=== PATIENT | female | born 1945 | race Caucasian/White ===

== ENCOUNTER 2016-07-29 10:03 | Inpatient (IN) | payer MEDICARE, OTHER ==
[2016-07-29] VITALS (16 sets, daily range): BP systolic 111–175; BP diastolic 58–81; PULSE 68–140; RESP 20–27; O2SAT 86–100
[~2016-07-29] VITALS: Ht 166.4 cm; Wt 82.7 kg
--- NOTE | 2016-07-29 10:44 | ED.REPORT ---
HPI-Dyspnea / Wheezing Date of Service Jul 29, 2016 ED Provider: Hakeem Balbuena MD 70 year old female with a history of DM, and polymyositis presents to the ER complaining of several days of acute on chronic shortness of breath, worsening markedly today. Associated symptoms include bilateral lower extremity swelling, occasional transient episodes of chest discomfort, a "rattling" sound with inspiration, and diaphoresis last night. Patient denies fever, productive cough , hemoptysis, and recent immobilization. Patient was seen by Dr. Johnson, Cardiology, who referred patient to the ER due to fluid collection indicated on her chest x-ray. Nursing Notes Stated Complaint: SHORTNESS OF BREATH Chief Complaint: Respiratory Distress Nursing Notes Reviewed: Yes Allergies: Coded Allergies: Penicillins (Verified Allergy, Unknown, hives, angioedema, 07/29/16) TAPE (Verified Allergy, Unknown, 07/29/16) Scheduled Folic Acid (Folic Acid) 1 Mg Tablet 1 MG PO DAILY Levothyroxine (Levothyroxine) 75 Mcg Tablet 75 MCG PO DAILY Losartan Potassium (Losartan Potassium) 50 Mg Tablet 50 MG PO DAILY Metoprolol Succinate ER (Metoprolol Succinate ER) 50 Mg Tab.er.24h 50 MG PO TID NPH, Human Insulin Isophane (HUMulin-N U100 Insulin Vial) 100 Unit/1 Ml Vial 30 UNITS SQ MORNING NPH, Human Insulin Isophane (HUMulin-N U100 Insulin Vial) 100 Unit/1 Ml Vial 10 UNIT SUBQ HS Omeprazole (Omeprazole) 20 Mg Capsule.dr 20 MG PO Every Other Day Warfarin Sodium (Warfarin Sodium) 2.5 Mg Tablet 2.5 MG PO DAILY General Time Seen by MD: 10:30 Chief Complaint Shortness of breath Hx Obtained From: Patient Arrived By: Walk-in Sudden in Onset?: No Associated with: Reports: Leg swelling, Denies: Fever Past Medical History Past Medical History Denies history of DVT Polymyositis Reports: Diabetes mellitus, Hypertension Smoking History Unknown if Ever Smoker Review of Systems Constitutional: Denies: Chills, Fever Respiratory: Reports: Shortness of breath, Denies: Hemoptysis, Non-productive cough, Prod cough, bloody, Prod cough, brown, Prod cough, clear, Prod cough, green, Prod cough, white, Prod cough, yellow Cardiovascular: Denies: Chest pain, Palpitations Musculoskeletal: Reports: Extremity swelling (Lower, bilateral) Skin: Reports Diaphoresis Complete sys rev & neg: except as marked. GI: Denies: Abdominal pain, Nausea Physical Exam Initial Vital Signs Vital Signs (First) Date Time Temp Pulse Resp B/P Pulse Ox O2 Delivery O2 Flow Rate FiO2 07/29/16 10:12 36.4 68 22 147/81 91 Room Air 07/29/16 10:50 3 Initial VS: Reviewed Head / Eyes: Atraumatic, Normocephalic Extremities: Vascular intact, Neuro intact, No tenderness Neurologic: Alert, Oriented, Nonfocal Psychiatric: Mood/affect normal, Behavior normal, Normal thought content General/Constitutional: Awake, Alert, No acute distress, Well developed, Well nourished Neck: Atraumatic, Supple, No meningismus, Full range of motion, No swelling, Non-tender, No masses Respiratory / Chest: Breath sounds NL, Breath sounds = bilat, No respiratory distress, No rales, No rhonchi, No wheezing, No retractions, No stridor Cardiovascular: Heart rate NL, Regular rhythm, Heart sounds NL, No murmurs, Peripheral circulation NL Trace bilateral lower extremity edema. Abdomen: Soft, Non-tender, No guarding, No rebound Interpretation & Diagnostics Lab Results Interpretation Result Diagram: 07/29/16 1040 07/29/16 1040 Test 07/29/16 10:40 07/29/16 12:50 White Blood Count 6.7th/mm3 (3.8-10.1) Red Blood Count 5.18mil/mm3 (3.90-5.20) Hemoglobin 13.7g/dL (12.0-15.6) Hematocrit 43.1% (35.0-46.0) Mean Corpuscular Volume 83.2fL (81-100) Mean Corpuscular Hemoglobin 26.4pg (27.0-35.0) Mean Corpuscular Hemoglobin Concent 31.8% (32.0-37.0) Red Cell Distribution Width 16.7% (12.3-15.4) Platelet Count 247bil/L (150-400) Neutrophils (%) (Auto) 79.1% (40-74) Lymphocytes (%) (Auto) 12.2% (14-46) Monocytes (%) (Auto) 6.5% (4-12) Eosinophils (%) (Auto) 1.4% (0-5) Basophils (%) (Auto) 0.6% (0-3) Prothrombin Time 67.6sec (8.1-12.5) Prothromb Time International Ratio 6.09ratio Sodium Level 141mEq/L (134-144) Potassium Level 4.3mEq/L (3.5-5.2) Chloride Level 103mEq/L (97-108) Carbon Dioxide Level 24mmol/L (18-29) Blood Urea Nitrogen 22mg/dL (8-27) Creatinine 0.71mg/dL (0.57-1.00) Estimat Glomerular Filtration Rate 116mL/min (>59) Glucose Level 105mg/dL (60-99) Calcium Level 8.9mg/dL (8.5-10.1) Total Bilirubin 0.5mg/dL (0.0-1.2) Aspartate Amino Transf (AST/SGOT) 23U/L (0-50) Alanine Aminotransferase (ALT/SGPT) 14U/L (0-32) Alkaline Phosphatase 116U/L (25-165) Troponin T 0.194ug/L (0.0-0.011) Pro-B-Type Natriuretic Peptide 73533ir/mL (0-301) Total Protein 7.2g/dL (6.4-8.4) Albumin 3.6g/dL (3.4-5.0) Hold Mchugh Top Tube Received (Received) Urine Color Yellow (YELLOW) Urine Appearance Hazy (CLEAR,HAZY) Urine pH 5.5 (5.0-8.0) Urine Specific [place] 1.030 (1.003-1.035) Urine Protein 300mg/dL (NEG,TRACE) Urine Glucose (UA) Negativemg/dL (NEGATIVE) Urine Ketones Negativemg/dL (NEGATIVE) Urine Occult Blood Large (NEGATIVE) Urine Nitrite Negative (NEGATIVE) Urine Bilirubin Negative (NEGATIVE) Urine Urobilinogen Normalmg/dL (NORMAL) Urine Leukocyte Esterase Negative (NEGATIVE) Urine RBC 11-50/hpf (0-2) Urine WBC 6-10/hpf (0-5) Urine Epithelial Cells Few/hpf (NONE-MOD) Urine Crystals None seen (NONE SEEN) Urine Bacteria Few/hpf (NONE-FEW) Urine Hyaline Casts Occasional/lpf (NONE) Urine Granular Casts None seen (NONE SEEN) Urine Waxy Casts None seen (NONE SEEN) Urine Red Blood Cell Casts None seen (NONE SEEN) Urine White Blood Cell Casts None seen (NONE SEEN) Urine Mucus Present (None Seen) Urine Trichomonas None seen (NONE SEEN) Urine Yeast None (NONE SEEN) Urinalysis Comment Transitional epi Urine Culture Reflexed Indicated ECG Interpretation ECG Interpretation: Sinus rhythm, rate [address] T changes Time: 11:15 Interpreted by: ED physician X-Ray Chest Interpretation Chest Xray Interpretation: IMPRESSION: 1. CHF. 2. Small bilateral pleural effusions. 3. Bibasilar atelectasis, pneumonia or aspiration. Please correlate with clinical and laboratory data. When Dictated by: Lexis Martino MD, PhD on 07/29/2016 at 11:18 Approved by: Lexis Martino MD, PhD on 07/29/2016 at 11:19 View: Portable, 1 view Interpretation / Wet Read by: Interpret - Radiologist Re-Eval/Medical Decision Med Decision/Clinical Course 70-year-old female history of diabetes, polymyositis on warfarin presenting complaining of orthopnea times several days. Patient was getting her ultrasound echocardiogram this morning and complains of orthopnea to them therefore they sent her over for evaluation. She denies any chest pain. Vital signs stable. Oxygen 86% room air. BNP 10,000. Troponin is 0.17. No EKG changes. Discussed with cardiology Dr. Coffman who thought okay to give heparin drip and trend troponins and EKGs. Symptoms likely due to CHF exacerbation. Cannot rule out an STEMI. Gave Lasix 40 mg IV 1. Patient regarding several liters oxygen. Admitted to [facility] for heparin drip and diuresis. Source of Hx: Old records Re-Evaluation/Progress : Time of Eval: 12:55 Re-Evaluation/Progress Note: Discussed lab/ raiology results and plan for admision to hospital. Patient is full code. Re-evaluation: respiratory bibasal crackles. Consultation #1: Referral / Consult Name: Reza Tafoya Consulted With: Hospitalist Call Returned at: 13:38 Sound Assistant: Referred to other consult Consultation #2: Referral / Consult Name: Reza Tafoya Consulted With: Hospitalist Call Returned at: 13:46 Sound Assistant: Agrees with eval, Agrees with plan, Accepts admit Consultation #3: Referral / Consult Name: Abhijeet Coffman MD Consulted With: Cardiology Call Returned at: 14:33 Counseled Regarding: Diagnosis, Lab results, Need for admission Discharge & Departure Impression: Primary Impression: CHF (congestive heart failure) Additional Impression: NSTEMI (non-ST elevated myocardial infarction) Disposition: ADMITTED TO HOSPITAL Discharge Condition All VS Reviewed: Yes Condition: Stable Referrals: Bonifacio Santacruz MD (PCP) Crit Care Except Billable Proc Time Spent: 30-74 minutes Services Performed: Patient management by me, Time spent at bedside, Reviewing test results, Reviewing imaging, Discussing patient care, Documentation in record Scribe Attestation Portions of this note were transcribed by Roni Arora. I, Dr. Balbuena, personally performed the history, physical exam and medical decision-making; I reviewed and confirmed the accuracy of the information in the transcribed note. Signed by: Stoney Lechuga, 07/29/2016 - 14:34 copies to: Bonifacio Santacruz MD, Ben M MD Jul 29, 2016 10:44 RONI ARORA Jul 29, 2016 10:56 Antonio Rider Jul 29, 2016 13:01
[2016-07-29 10:54] LABS: BASOPHILS % (AUTO) 0.6 % (0-3); EOSINOPHILS % (AUTO) 1.4 % (0-5); MONOCYTES % (AUTO) 6.5 % (4-12); Mean Corpuscular Hemoglobin 26.4 pg (27.0-35.0); Mean Corpuscular Volume 83.2 fL (81-100); NEUTROPHILS % (AUTO) 79.1 % (40-74); Platelet Count 247 bil/L (150-400)
--- NOTE | 2016-07-29 11:20 | DRSVH ---
PROCEDURE: X-RAY CHEST ONE VIEW, PORTABLE ([id number]) INDICATIONS: sob TECHNIQUE: One view of the chest was acquired. COMPARISON: [facility], CR, CHEST 1VW (PORTABLE), 03/31/2008, 12:58. FINDINGS: Surgical changes and devices: None. Lungs and pleura: Cephalization of pulmonary vasculature interstitial prominence compatible with CHF. Small bilateral pleural fluid collections are noted. Patchy opacities in the lung bases bilaterally which could represent atelectasis, pneumonia or aspiration. Mediastinum: Mediastinal contours appear normal. Heart size is normal. Bones and chest wall: No suspicious bony lesions. Overlying soft tissues appear unremarkable. IMPRESSION: 1. CHF. 2. Small bilateral pleural effusions. 3. Bibasilar atelectasis, pneumonia or aspiration. Please correlate with clinical and laboratory data . When Dictated by: Lexis Martino MD, PhD on 07/29/2016 at 11:18 Approved by: Lexis Martino MD, PhD on 07/29/2016 at 11:19
[2016-07-29 11:26] LABS: INR 6.09 ratio
[2016-07-29 11:56] LABS: TROPONIN T 0.194 ug/L (0.0-0.011)
[2016-07-29] MEDS ORDERED: Furosemide 10 mg/mL 4 mL Inj IVPUSH ONE (12:45)
[2016-07-29 13:17] LABS: APPEARANCE,URINE HAZY (CLEAR,HAZY); COLOR,URINE YELLOW (YELLOW); OCCULT BLOOD,URINE LARGE (NEGATIVE); PH,URINE 5.5 (5.0-8.0); UROBILINOGEN,URINE NORMAL (NORMAL)
[2016-07-29] MEDS ORDERED: Heparin 5,000 Unit/mL Inj IVPUSH ONE (13:40)
[2016-07-29] MEDS ORDERED: Heparin 25K Unit/500mL 0.45 NS 25,000 UNIT in IV Premix 1 EACH IV ONE (13:40)
[2016-07-29] MEDS ORDERED: Ondansetron 2 mg/mL 2 mL Inj IVPUSH PRN ×2 (14:05→17:40)
[2016-07-29] MEDS ORDERED: Alum-Mag Hydrox-Simeth 30 mL Suspension PO PRN ×2 (14:05→17:40)
[2016-07-29] MEDS ORDERED: METO-272 PO (14:27)
[2016-07-29] MEDS ORDERED: LEVO75TA4 PO (14:31)
[2016-07-29] MEDS ORDERED: WARF2.5T82 PO (14:31)
[2016-07-29] MEDS ORDERED: FOLI1TAB18 PO (14:31)
[2016-07-29] MEDS ORDERED: OMEP20CA11 PO (14:31)
[2016-07-29] MEDS ORDERED: LOSA50TA37 PO (14:31)
[2016-07-29] MEDS ORDERED: NPH,100V11 SUBQ (14:31)
[2016-07-29] MEDS ORDERED: NPH,100V11 SQ (14:31)
[2016-07-29] MEDS ORDERED: Diltiazem 5 mg/mL 5 mL Inj ONE (15:05)
[2016-07-29] MEDS ORDERED: Diltiazem 5 mg/mL 5 mL Inj IVPUSH ONE ×2 (15:20→20:10)
--- NOTE | 2016-07-29 16:12 | NUR ---
Admit to [facility] Pt arrived by w/c to [facility] at 1543. Pt AAO. 1-2 PA to stand from w/c and ambulate to bed, pt weak. BSC to void. Upon assessment pt reported that I should document that she had shingles "a couple of years ago". Pt then began to scratch R back/posterior rib area. Upon exam, open red pustules present. MD and worm sorter notified. This RN is and unable to safely care for pt with likely active shingles. Pt placed on droplet isolation, and worm sorter to assume care of pt.
[2016-07-29] MEDS ORDERED: Polyethylene Glycol (PEG) 17 Gm Powder PO PRN (17:40)
--- NOTE | 2016-07-29 18:26 | PCM.HPMED ---
Subjective Date of Service Jul 29, 2016 Primary Provider: Admitting Physician: Reza Tafoya Primary Care Physician: Bonifacio Santacruz MD Attending Physician: Reza Tafoya Chief Complaint: shortness of breath History of Present Illness: 70 year old female with history hypertension and diabetes mellitus was apparently diagnosed with atrial fibrillation in June of this year during a routine checkup by her primary care provider. She was started on Warfarin at that time and patient feels that since then she has been having ongoing and worsening dyspnea on exertion, orthopnea, lower extremity edema and weight gain. She saw Dr. Overton from cardiology for the first time few days ago who ordered an echocardiogram as outpatient. Patient had her echocardiogram done earlier today and due to the findings was recommended to come to the ED by the test and turn up technician. In the ED workup was notable for elevated Troponin and BNP with chest x-ray suggestive of CHF. She reports some chest tightness but no significant chest pain. She otherwise denies any other associated symptoms. She received 40mg of IV Lasix in ED, full dose ASA, cardiology was consulted, and patient admitted to hospitalist service for further workup and treatment. Allergies Coded Allergies: Penicillins (Verified Allergy, Unknown, hives, angioedema, 07/29/16) TAPE (Verified Allergy, Unknown, 07/29/16) Home Medications Warfarin Sodium 2.5 Mg PO DAILY Losartan Potassium 50 Mg PO DAILY Metoprolol Succinate ER 50 Mg PO TID Omeprazole 20 Mg PO Every Other Day Levothyroxine 75 Mcg PO DAILY NPH, Human Insulin Isophane 30 Units SQ MORNING NPH, Human Insulin Isophane 10 Unit SUBQ HS Folic Acid 1 Mg PO DAILY Exam Vital Signs & I/O Vital Sign- Last 8 Hours Date Time Temp Pulse Resp B/P Pulse Ox O2 Delivery O2 Flow Rate FiO2 07/29/16 17:48 36.7 68 20 166/79 100 Nasal Cannula 2.00 07/29/16 16:06 36.5 78 20 175/72 95 Nasal Cannula 2.00 07/29/16 15:54 83 07/29/16 15:19 122 119/58 97 07/29/16 15:12 37 07/29/16 11:51 68 22 158/79 96 07/29/16 10:50 99 Nasal Cannula 3 07/29/16 10:49 86 Room Air 07/29/16 10:12 36.4 68 22 147/81 91 Room Air Lab & Micro Results Laboratory Tests Test 07/29/16 10:40 07/29/16 12:50 07/29/16 14:02 White Blood Count 6.7th/mm3 (3.8-10.1) Red Blood Count 5.18mil/mm3 (3.90-5.20) Hemoglobin 13.7g/dL (12.0-15.6) Hematocrit 43.1% (35.0-46.0) Mean Corpuscular Volume 83.2fL (81-100) Mean Corpuscular Hemoglobin 26.4pg (27.0-35.0) Mean Corpuscular Hemoglobin Concent 31.8% (32.0-37.0) Red Cell Distribution Width 16.7% (12.3-15.4) Platelet Count 247bil/L (150-400) Neutrophils (%) (Auto) 79.1% (40-74) Lymphocytes (%) (Auto) 12.2% (14-46) Monocytes (%) (Auto) 6.5% (4-12) Eosinophils (%) (Auto) 1.4% (0-5) Basophils (%) (Auto) 0.6% (0-3) Prothrombin Time 67.6sec (8.1-12.5) Prothromb Time International Ratio 6.09ratio Sodium Level 141mEq/L (134-144) Potassium Level 4.3mEq/L (3.5-5.2) Chloride Level 103mEq/L (97-108) Carbon Dioxide Level 24mmol/L (18-29) Blood Urea Nitrogen 22mg/dL (8-27) Creatinine 0.71mg/dL (0.57-1.00) Estimat Glomerular Filtration Rate 116mL/min (>59) Glucose Level 105mg/dL (60-99) Calcium Level 8.9mg/dL (8.5-10.1) Total Bilirubin 0.5mg/dL (0.0-1.2) Aspartate Amino Transf (AST/SGOT) 23U/L (0-50) Alanine Aminotransferase (ALT/SGPT) 14U/L (0-32) Alkaline Phosphatase 116U/L (25-165) Troponin T 0.194ug/L (0.0-0.011) Pro-B-Type Natriuretic Peptide 47796sl/mL (0-301) Total Protein 7.2g/dL (6.4-8.4) Albumin 3.6g/dL (3.4-5.0) Hold Mchugh Top Tube Received (Received) Urine Color Yellow (YELLOW) Urine Appearance Hazy (CLEAR,HAZY) Urine pH 5.5 (5.0-8.0) Urine Specific [place] 1.030 (1.003-1.035) Urine Protein 300mg/dL (NEG,TRACE) Urine Glucose (UA) Negativemg/dL (NEGATIVE) Urine Ketones Negativemg/dL (NEGATIVE) Urine Occult Blood Large (NEGATIVE) Urine Nitrite Negative (NEGATIVE) Urine Bilirubin Negative (NEGATIVE) Urine Urobilinogen Normalmg/dL (NORMAL) Urine Leukocyte Esterase Negative (NEGATIVE) Urine RBC 11-50/hpf (0-2) Urine WBC 6-10/hpf (0-5) Urine Epithelial Cells Few/hpf (NONE-MOD) Urine Crystals None seen (NONE SEEN) Urine Bacteria Few/hpf (NONE-FEW) Urine Hyaline Casts Occasional/lpf (NONE) Urine Granular Casts None seen (NONE SEEN) Urine Waxy Casts None seen (NONE SEEN) Urine Red Blood Cell Casts None seen (NONE SEEN) Urine White Blood Cell Casts None seen (NONE SEEN) Urine Mucus Present (None Seen) Urine Trichomonas None seen (NONE SEEN) Urine Yeast None (NONE SEEN) Urinalysis Comment Transitional epi Urine Culture Reflexed Indicated Activated Partial Thromboplast Time 45.4sec (22.8-33.0) Microbiology 07/29/16 Urine Culture, Received Pending Result Diagram: 07/29/16 1040 07/29/16 1040 Review of Systems: Constitutional: Negative, except as otherwise mentioned in the history above. Ophthalmologic: Negative, except as otherwise mentioned in the history above. Cardiovascular: Negative, except as otherwise mentioned in the history above. Respiratory: Negative, except as otherwise mentioned in the history above. Gastrointestinal: Negative, except as otherwise mentioned in the history above. Genitourinary: Negative, except as otherwise mentioned in the history above. Musculoskeletal: Negative, except as otherwise mentioned in the history above. Neurological: Negative, except as otherwise mentioned in the history above. Psychiatric: Negative, except as otherwise mentioned in the history above. Hematologic/Lymphatic: Negative, except as otherwise mentioned in the history above. Allergic/Immunologic: Negative, except as otherwise mentioned in the history above. PMH 1. Hypertension 2. Polymyalgia 3. Diabetes Mellitus 4. Atrial fibrillation diagnosed in June 2016 5. Hypothyroidism Social History Hx Alcohol Use: No Hx Substance Use: No Hx Tobacco Use: No Smoking Status: Never Smoker Exam Vital Signs Vital Sign - Last Date Time Temp Pulse Resp B/P Pulse Ox O2 Delivery O2 Flow Rate FiO2 07/29/16 17:48 36.7 68 20 166/79 100 Nasal Cannula 2.00 General: Alert, Oriented X3, Cooperative, No Acute Distress Head: Normal Eyes: PERRLA, EOMI, Scleral Anicteric Nose: Mucous Membr Moist/Hundred Mouth: Mucous Membr Moist/Hundred Neck: Supple Chest & Lungs: Chest Wall Normal, Clear to auscultation & percussion Cardiovascular: Regular Rate/Rhythm, Other (2-3/6 CAPRICE) Pulses: NL carotid, radial, femoral, DP, PT Abdomen: Non-tender, Non-distended, Normoactive bowel tones, Soft Extremities: Edema (2+ pitting edema in LE bilat) Neurological: Grossly Neurologically Intact, Cranial Nerves 2-12 Intact, Normal Speech Lymphatic: Other Lymph Nodes (no significant lymphadenopathy) Additional Information: Psych: Mood and affect appropriate Lab and Diagnostics Result Diagram: 07/29/16 1040 07/29/16 1040 X-Rays, CTs and MRIs Date of Service: 07/29/16 1033 PROCEDURE: X-RAY CHEST ONE VIEW, PORTABLE ([id number]) IMPRESSION: 1. CHF. 2. Small bilateral pleural effusions. 3. Bibasilar atelectasis, pneumonia or aspiration. Please correlate with clinical and laboratory data. When Dictated by: Lexis Martino MD, PhD on 07/29/2016 at 11:18 Approved by: Lexis Martino MD, PhD on 07/29/2016 at 11:19 12-lead ECG NSR at [address] elevation/depression Cardiac Echo Impressions Date of Service: 07/29/16 0832 Echocardiogram Report Interpretation Summary The left ventricle is normal in size. Left ventricular ejection fraction is estimated to be 50 +/- 5%. Compared to the prior exam, the left ventricular function is reduced. There is moderate hypokinesis of the base to mid anterior wall extending in to the base to mid anterolateral wall (New). The right ventricular systolic function is normal. There is moderate mitral regurgitation. Compared to the prior echo study, there has been an increase in the severity of mitral regurgitation. A bicuspid aortic valve cannot be excluded. The aortic valve is heavily calcified. Leaflet mobility is severely reduced. As sev ratio: 0.17 The peak aortic velocity is 2.92 m/sec. The aortic valve mean gradient is 20.3 mmHg. The peak aortic velocity on the previous exam was 3.36 m/sec. The calculated aortic valve area is 0.54 cm2. There is severe aortic stenosis ( Paradoxically low gradient). Compared to the prior echo study, there has been an increase in the severity of aortic stenosis. There is mild to moderate aortic regurgitation. Compared to the prior echo study, there has been an increase in the severity of aortic regurgitation. The IVC is dilated (diameter is greater than 2.1 cm) and it collapses less than 50% with a sniff. This suggests a high right atrial pressure of 15 mm Hg. There is a moderately large left-sided pleural effusion. Reading Physician:PM Assessment & Plan 70 year old female with history hypertension and diabetes mellitus and somewhat newly diagnosed atrial fibrillation presents with ongoing and worsening dyspnea on exertion, orthopnea and lower extremity edema with echocardiogram suggestive of significant valvulopathy and significant wall motion abnormality as well. # Suspected acute NSTEMI given elevated Troponin and "moderate hypokinesis of the base to mid anterior wall extending in to the base to mid anterolateral wall" noted on echocardiogram today. poa - alternatively the elevated Troponin may due to demand ischemia from underlying acute CHF while the wall motion abnormality due to an earlier and possible silent GA - currently patient denies any chest pain and says SOB improving after receiving Lasix earlier in the ED - start ASA daily - start Lipitor tonight and check fasting lipid - c/w home dose BB - cardiology consulted and will f/u with recs - continue to trend Trop in the meantime # Acute systolic and diastolic CHF, present on admission. ongoing - etiology likely combination of ischemic cardiomyopathy and valvular heart disease - c/w IV Lasix daily - f/u daily weight and I/O - f/u with cardiology consult as noted above - c/w home dose Losartan for now # severe aortic stenosis ( Paradoxically low gradient) and moderate mitral regurgitation noted on Echo from 07/29/16 - further initial cardiac workup as noted above # History of hypertension. stable - c/w home dose Losartan and Metoprolol # Diabetes Mellitus - c/w home dose Lantus - cover with ISS - check HgA1C # History of hypothyroidism - check TSH and T4 - c/w home dose Levothyroxine for now # Somewhat recently diagnosed A-fib. poa. currently in sinus rhythm - c/w Metoprolol # Anticoagulation with Coumadin with supra-therapeutic INR on presentation - hold Coumadin for now - f/u repeat INR in am Expected length of hospital stay is greater than 2 midnights and likely 3-4 days. GI Prophylaxis: Proton Pump Inhibitor VTE Prophylaxis: Theraputic Anticoag with Warfarin, SCDs VTE Mechanical Devices: Intermittant Pneumatic CD Resuscitation Status: CPR: Attempt Resuscitation (discussed and verified with the patient) Time spent 65 min Reza Tafoya Jul 29, 2016 18:26
--- NOTE | 2016-07-29 20:07 | NUR ---
A fib: Pt's heartrate increased to the 150s per telephone lineman at start of shift. Pt denies shortness of breath, palpitations. EKG confirmed a fib RVR with rate of 132. BP 135/74, on 2l nc 96%. Scheduled dose of PO 50 mg Metoprolol administered as pt stated not having any medications today. notified, just received order for 10mg iv cardizem. Addendum: 07/29/16 at 2042 by NAN JOHNS RN Pt will be transferring to [facility]. HR continues to be elevated.
[2016-07-29] MEDS ORDERED: MeTOProlol XL 50 mg ER24 Tablet PO SCH (20:30)
--- NOTE | 2016-07-29 21:26 | NUR ---
Transfer: Pt transferred to [facility] room 2029. Report given to [facility] RN. Belongings sent with pt, family member with pt.
[2016-07-29] MEDS ORDERED: 0.9% Sodium Chloride 250 ML ONE (21:36)
[2016-07-29] MEDS: Insulin Human REGular 300 Unit/3 mL Inj SUBQ SCH (21:54)
[2016-07-29] MEDS: Insulin Human NPH 100 Unit/mL 3 mL Inj SUBQ SCH (21:59)
[2016-07-29] MEDS ORDERED: Diltiazem 125 mg/125 mL D5W IV SCH ×2 (22:10)
--- NOTE | 2016-07-29 22:45 | NUR ---
Transfer from [facility]: Pt received to room 2030 at 2114 in stable condition on 2L per NC. Pt was transferred via bed. Telemetry box was removed and the pt was placed on a MP30 and noted to be in Afib in the 130s to 150s. VSS. Dr. Lanier was paged at 2130 and a new order was received to put the pt on a cardizem gtt per protocol. The pt was started on the gtt at 5 mg/hour and converted quickly at approximately 2333 to SR in the 70s within minutes of putting the pt on the gtt. Dr. Lanier notified and an order was received at 2241 to discontinue the gtt. Cardizem discontinued; pt remains in NSR. Will cont. to monitor.
[2016-07-30] VITALS (12 sets, daily range): BP systolic 129–150; BP diastolic 58–82; PULSE 68–125; RESP 16–23; O2SAT 91–100
--- NOTE | 2016-07-30 02:46 | PCM.PNMED ---
Subjective Date of Service Jul 30, 2016 Subjective Called by nurse that patient went into A fib with RVR. Cardizem 10 mg IV not effective and was transferred to [facility] and Cardizem drip started. Patient converted back to sinus rhythm. Drip stopped but then went into RVR 120- 130s. Initiating Cardizem 30 mg qid and stopping Metoprolol, beta keturah seems to be ineffective and calcium channel keturah more better with rate control Wm Lanier MD Jul 30, 2016 02:46
[2016-07-30 03:23] LABS: Mean Corpuscular Hemoglobin 26.4 pg (27.0-35.0); Mean Corpuscular Volume 82.8 fL (81-100)
--- NOTE | 2016-07-30 03:50 | NUR ---
Rhythm Changes: Pt converted back into Afib in the 120-140s/150s when sitting up on the side of the bed to use the BSC. Pt physically noted change. Dr. Lanier paged and new order obtained to administer 30 mg of PO Diltiazem. Dose administered. Pt stable. Pt converted back into SR at 0346. Will cont. to monitor.
[2016-07-30 03:56] LABS: INR 6.89 ratio
[2016-07-30 03:59] LABS: Magnesium 1.9 mg/dL (1.6-2.6)
--- NOTE | 2016-07-30 07:13 | NUR ---
Cardiac Update: Pt has remained in a sinus rhythm, however, heart rate has noted to drop into the 50s to 60s early this morning.
[2016-07-30] MEDS: Insulin Human NPH 100 Unit/mL 3 mL Inj SUBQ SCH ×2 (08:30→21:00)
[2016-07-30] MEDS ORDERED: Pantoprazole 40 mg ER24 Tablet PO SCH (08:30)
[2016-07-30] MEDS: Insulin Human REGular 300 Unit/3 mL Inj SUBQ SCH ×4 (08:53→21:13)
[2016-07-30] MEDS: Furosemide 10 mg/mL 4 mL Inj IVPUSH SCH (08:55)
--- NOTE | 2016-07-30 11:30 | PCM.CHPCAR ---
Consult Subjective Date of service Jul 30, 2016 Date of admit Jul 29, 2016 at 13:41 Provider Requesting Consult Primary Care Physician Primary Care Provider: Bonifacio Santacruz MD Chief Complaint NSTEMI vs. Congestive heart failure exacerbation. History of Present Illness Ms. Calixto is a very pleasant 70 yo Druze woman with a past medical history of paroxysmal Atrial fibrillation who was sent to the ED on secondary to shortness of breath and bilateral lower extremity swelling. Patient was seen as an outpatient by Dr. Johnson reportedly referred patient to the ER secondary to fluid collection indicated on her chest x-ray. EKG done in cardiology outpatient office showed sinus rhythm with left atrial enlargement and nonspecific ST-T changes. Pertinent past medical history: Patient has a recent diagnosis of paroxysmal A. fib, aortic stenosis with preserved LV function based on an echocardiogram done February 2009. She is recently started on anticoagulation in June. Patient also has chronic iron deficiency anemia without any definitive bleeding history, history of non-Hodgkin's lymphoma status post chemotherapy last treatment July 2008, history of nephrotic syndrome and myositis Patient does endorse symptoms of palpitations and chest discomfort and tightness 6 months. She endorses not being able to sleep through the night having to sleep sitting up, decreased exercise tolerance which includes the inability to walk up a flight of stairs without having to pause to catch her breath. Though this her physical baseline secondary to myositis Pt is a Jehovah Witness and will not accept blood products. Review of Systems Review of Systems Overnight: Patient converted to A. fib with RVR. On-call hospitalist notified, Pt given Cardizem 10 mg IV without effect. Transferred to [facility] with Cardizem drip, patient converted back to sinus rhythm and drip stopped however patient return to RVR 120's-130's. Cardizem 30 mg QID started. DC metoprolol. At time of interview patient sitting up in bedside chair awake alert and mentating appropriately, states she does not feel any pain or cardiac symptoms. She feels much better after receiving her Lasix stating that her breathing is much improved. Problem list: # NSTEMI vs newly diagnosed CHF exacerbation. # Paroxysmal A. fib # Aortic stenosis # HTN REVIEW OF SYSTEMS Constitutional: Denies Chills, Fever Eyes: Denies Blurred Vision, Vision Changes Neck: Denies Mass, Pain, Swelling Cardiovascular: Denies Chest Pain, Palpitations, Rapid Heart Rate. Endorses lower extremity edema, feeling of an irregular heart rate, SOB on Exertion, SOB while laying flat Respiratory: Endorses productive cough with sputum and some blood, shortness of breath with exertion denies Gastrointestinal: Denies Abdominal Pain, Black tarry stools, Constipation, Diarrhea, Nausea, Vomiting Genitourinary: Denies No burning or pain with urination Skin: Reports: Denies Itching, or painful lesions Endorses rash on her back approximately T 10 dermatome, which does not itch nor is it painful Neurological: Denies Change in LOC, Change in Speech, Confusion, Difficulty Walking, Dizziness, Double Vision, Numbness, Seizures, Somnolence, Tremors, Vertigo Hematologic: Denies Abnormal Bleeding, Bruising PMH Past Medical History # Paroxysmal AF # Aortic stenosis, suspected to be bicuspid Hematic/Lymphatic/Neoplastic Non-Hodgkin's lymphoma status post chemotherapy with CHOP plus Rituxan treatment in July 2008 Hematic/Lymphatic/Neoplastic: Positive for: Anemia Other History Aortic stenosis Cancer, lymphoma Diabetes mellitus High cholesterol Hypertension Myositis Hx Any Other Health Problems?: YesHx Diabetes: YesBedside Blood Glucose: 102 Scheduled Folic Acid (Folic Acid) 1 Mg Tablet 1 MG PO DAILY (Reported) Levothyroxine (Levothyroxine) 75 Mcg Tablet 75 MCG PO DAILY (Reported) Losartan Potassium (Losartan Potassium) 50 Mg Tablet 50 MG PO DAILY (Reported) Metoprolol Succinate ER (Metoprolol Succinate ER) 50 Mg Tab.er.24h 50 MG PO TID (Reported) NPH, Human Insulin Isophane (HUMulin-N U100 Insulin Vial) 100 Unit/1 Ml Vial 30 UNITS SQ MORNING (Reported) NPH, Human Insulin Isophane (HUMulin-N U100 Insulin Vial) 100 Unit/1 Ml Vial 10 UNIT SUBQ HS (Reported) Omeprazole (Omeprazole) 20 Mg Capsule.dr 20 MG PO Every Other Day (Reported) Warfarin Sodium (Warfarin Sodium) 2.5 Mg Tablet 2.5 MG PO DAILY (Reported) Current Inpatient Medications Current Medications Al Hydrox/Mg Hydrox/Simethicone 30 ml Q6 PRN PO; Start 07/29/16 at 14:05; Stop 07/29/16 at 17:40; Status DC Ondansetron HCl Dose range: 4 mg to 8 mg Q4H PRN IVPUSH; Start 07/29/16 at 14:05 ; Stop 07/29/16 at 17:40; Status DC Acetaminophen 975 mg Q6H PRN PO; Start 07/29/16 at 14:05; Stop 07/29/16 at 17:40 ; Status DC Al Hydrox/Mg Hydrox/Simethicone 30 ml Q6H PRN PO; Start 07/29/16 at 17:40 Ondansetron HCl 4 to 8 mg Q4H PRN IVPUSH; Start 07/29/16 at 17:40 Senna 17.2 mg BID PRN PO; Start 07/29/16 at 17:40 Polyethylene Glycol 17 gm DAILY PRN PO; Start 07/29/16 at 17:40 Acetaminophen 650 mg Q4H PRN PO; Start 07/29/16 at 17:40 Morphine Sulfate 1-2 mg Q4H PRN IV; Start 07/29/16 at 17:40 Furosemide 40 mg DAILY IVPUSH Last administered on 07/30/16 08:55; Admin Dose 40 MG; Start 07/30/16 at 08:30 Levothyroxine Sodium 75 mcg 0630 PO Last administered on 07/30/16 06:40; Admin Dose 75 MCG; Start 07/30/16 at 06:30 Losartan Potassium 50 mg DAILY PO Last administered on 07/30/16 08:55; Admin Dose 50 MG; Start 07/30/16 at 08:30 Metoprolol Succinate 50 mg TID PO Last administered on 07/29/16 19:43; Admin Dose 50 MG; Start 07/29/16 at 20:30; Stop 07/30/16 at 02:43; Status DC Insulin Human NPH 10 unit HS SUBQ Last administered on 07/29/16 21:59; Admin Dose 10 UNIT; Start 07/29/16 at 21:00 Insulin Human NPH 30 unit MORNING SUBQ; Start 07/30/16 at 08:30 Pantoprazole 40 mg Q48 PO Last administered on 07/30/16 08:55; Admin Dose 40 MG ; Start 07/30/16 at 08:30 Atorvastatin Calcium 20 mg HS PO Last administered on 07/29/16 22:00; Admin Dose 20 MG; Start 07/29/16 at 21:00 Insulin Human Regular * Low Dose Insulin Algori... ACHS SUBQ; Start 07/29/16 at 22:00 Diltiazem HCl/ Dextrose/Water 125 ml @ 5 mls/hr Q24H IV Last administered on 07/29 22:18; Admin Dose 5 MLS/HR; Start 07/29/16 at 22:10; Stop 07/29/16 at 23:15 ; Status DC Diltiazem HCl 30 mg ACHS PO Last administered on 07/30/16 08:54; Admin Dose 30 MG; Start 07/30/16 at 02:45 Allergies: Coded Allergies: Penicillins (Verified Allergy, Unknown, hives, angioedema, 07/29/16) TAPE (Verified Allergy, Unknown, 07/29/16) Family History Family History Daughter is healthy Social History Hx Alcohol Use: NoHx Substance Use: NoHx Tobacco Use: No Smoking Status: Never Smoker Exam Vital Signs Vital Sign - Last Date Time Temp Pulse Resp B/P Pulse Ox O2 Delivery O2 Flow Rate FiO2 07/30/16 08:48 36.3 71 17 136/65 97 Nasal Cannula 2.00 Intake and Output 07/29/16 07/29/16 07/30/16 Cumulative From/Thru 15:00 23:00 07:00 07/29/16 10:12 - 07/30/16 06:21 Intake Total 10 ml 10 ml Output Total 200 ml 200 ml Balance 10 ml -200 ml -190 ml Intake IV Total 10 ml 10 ml Output Urine Total 200 ml 200 ml Objective General: Patient sitting up in bedside chair, awake and alert no apparent distress, well-developed, well-nourished, appropriately interactive HEENT: Normocephalic, atraumatic. External ears without defect. Anicteric sclerae, moist conjunctivae, and no lid lag. Neck: Supple with full range of motion. No jugular venous distension. No lymphadenopathy. Possible Bruit right side, difficult to differentiate 2/2 systolic murmur Cardiovascular: Irregular rhythm with mid-systolic ejection murmur heard best at the right second intercostal sternal border grade 4/6. Pulmonary: Poor air movement. No use of accessory muscles. Slight bilateral lower lobe crackles Abdomen: Bowel tones present. Soft, nontender, nondistended. Extremities: Bilateral lower extremity edema extending to upper ankle Skin: Normal temperature, turgor, and texture. Maculopapular rash with slight excoriations located on right side of back approximately T-8 to T-10 dermatomal area. Neurological: Cranial nerves grossly intact. Normal muscle strength, tone, and bulk. Pt walks with the assistance of a walker Psychiatric: Normal mood and affect. Alert and oriented to person, place, and time. Lab and Diagnostics Result Diagram: 07/30/1630907/30/16309 X-Rays, CTs and MRIs . X-RAY CHEST ONE VIEW, PORTABLE IMPRESSION: 1. CHF. 2. Small bilateral pleural effusions. 3. Bibasilar atelectasis, pneumonia or aspiration. Please correlate with clinical and laboratory data. When Dictated by: Lexis Martino MD, PhD Additional Diagnostics: . Echocardiogram Report Interpretation Summary: The left ventricle is normal in size. Left ventricular ejection fraction is estimated to be 50 +/- 5%. Compared to the prior exam, the left ventricular function is reduced. There is moderate hypokinesis of the base to mid anterior wall extending in to the base to mid anterolateral wall (New). The right ventricular systolic function is normal. There is moderate mitral regurgitation. Compared to the prior echo study, there has been an increase in the severity of mitral regurgitation. A bicuspid aortic valve cannot be excluded. The aortic valve is heavily calcified. Leaflet mobility is severely reduced. As sev ratio: 0.17 The peak aortic velocity is 2.92 m/sec. The aortic valve mean gradient is 20.3 mmHg. The peak aortic velocity on the previous exam was 3.36 m/sec. The calculated aortic valve area is 0.54 cm2. There is severe aortic stenosis ( Paradoxically low gradient). Compared to the prior echo study, there has been an increase in the severity of aortic stenosis. There is mild to moderate aortic regurgitation. Compared to the prior echo study , there has been an increase in the severity of aortic regurgitation. The IVC is dilated (diameter is greater than 2.1 cm) and it collapses less than 50% with a sniff. This suggests a high right atrial pressure of 15 mm Hg. There is a moderately large left-sided pleural effusion. Assessment & Plan Assessment 70 year old female PMH A-fib, HTN with possible NSTEMI vs. newly diagnosed CHF exacerbation. Complicated by A-fib with RVR, which was non responsive to Beta Blockers/. Hospital day 2. # Suspected acute NSTEMI, present on admission. Ongoing. Echo 07/29/16 showed EF about 50% with anterior wall hypokinesis suggestive obstructive disease in the LAD. ECG doesn't suggest STEMI. Peak troponin of 0.194. Chest pain free while in the hospital. Patient educated about her condition and the need to do coronary angiography. Plan: - start ASA 81mg daily - Atorvastatin 20mg HS - Stop diltiazem and start metoprolol XL 100mg bid - Diagnostic Cath tomorrow if INR < 2 - VIT K PO now given supratherapeutic INR and need to do procedures # Acute CHF diastolic dysfunction, present on admission. ongoing. NYHA class IV. Etiology is severe and NSTEMI. Diuresing well with IV furosemide and she is able to lay flat now. Plan: - IV Lasix 40mg daily - f/u daily weight and I/O - Losartan 50mg QD #A-Fib, present on admission, currently in sinus rhythm. She had AF overnight but was asymptomatic during it. CHADSVASC score 4(1 for woman, 1 for CAD, 1 for HF, and 1 for age > 65), suggesting benefit from therapeutic anticoagulation. Plan: - Metoprolol as above - Anticoagulation held due need for procedures as above - Repeat INR # Severe aortic stenosis (Paradoxically low gradient): suspected to be bicuspid aortic valve based on serial echos. Ideally, she would benefit from surgical AVR along with probable CABG but patient is opposed to blood transfusions given she is Druze and the patient also has myositis that will limit her ability of cardiac rehab. Will do angiogram tomorrow and discuss the case with CT surgery to determine further management plan. # HTN, present on admission, ongoing - Losartan as above VTE Prophylaxis: Theraputic Anticoag with Warfarin, SCDs VTE Mechanical Devices: Intermittant Pneumatic CD Resuscitation Status: CPR: Attempt Resuscitation (discussed and verified with the patient) Attending Statement I saw, examined, and evaluated the patient on 07/30/[address] Iron Grigsby and agree with the note as above along with my edits. IRON GRIGSBY DO Jul 30, 2016 10:02 Abhijeet Coffman MD Jul 30, 2016 15:14
[2016-07-30] MEDS ORDERED: Phytonadione (Adult) 2.5 MG in Dextrose 5%-Pha MIX 50 ML IV ONE (13:40)
[2016-07-30] MEDS ORDERED: Phytonadione (Adult) 10 mg/1 mL Inj PO ONE (14:05)
--- NOTE | 2016-07-30 19:38 | NUR ---
A fib Pt converted to a fib RVR in the 130s-160s at ~1615 this evening after getting up onto the BSC, made aware, instructed to give evening dose of PO diltiazem early and monitor Pt. Pt able to sense change in rhythm, but denied pain/SOB. Pt converted back into SR in the 80s at ~1830.
--- NOTE | 2016-07-30 20:11 | PCM.PNMED ---
Subjective Date of Service Jul 30, 2016 Subjective Ms. Calixto is a 70 year old woman with history of hypertension, diabetes mellitus, atrial fibrillation, and polymyositis who presented to the emergency department for several days of acute on chronic shortness of breath, worsening markedly yesterday. Today is hospital day 2. She was started on warfarin in June. Patient also has chronic iron deficiency anemia without any definitive bleeding history, history of non-Hodgkin's lymphoma status post chemotherapy last treatment July 2008, history of nephrotic syndrome and polymyositis. She has palpitations when getting up to use the bathroom and chest discomfort and tightness for the past 6 months. She is not able to sleep through the night having to sleep sitting up, decreased exercise tolerance which includes the inability to walk up a flight of stairs without having to pause to catch her breath. Patient is a Jehovah Witness and will not accept blood products. She has an itchy rash on her right upper back that is not painful and not in the same area as her previous Shingles outbreak. Her blood sugar was low this morning before breakfast. Patient's morning insulin was held since her blood glucose was less than 150. She had another episode of atrial fibrillation with RVR this afternoon when getting up to the bedside commode so she was given her by mouth diltiazem earlier than scheduled. Exam Vital Signs Vital Sign - Last Date Time Temp Pulse Resp B/P Pulse Ox O2 Delivery O2 Flow Rate FiO2 07/30/16 11:02 70 07/30/16 08:48 36.3 17 136/65 97 Nasal Cannula 2.00 Intake and Output 07/29/16 07/29/16 07/30/16 Cumulative From/Thru 15:00 23:00 07:00 07/29/16 10:12 - 07/30/16 06:21 Intake Total 10 ml 10 ml Output Total 200 ml 200 ml Balance 10 ml -200 ml -190 ml Intake IV Total 10 ml 10 ml Output Urine Total 200 ml 200 ml Exam General: Alert, Oriented X3, Cooperative, No Acute Distress Head: Normal Eyes: PERRLA, EOMI, Scleral Anicteric Nose: Mucous Membr Moist/[place] Mouth: Mucous Membr Moist/[place] Neck: Supple Chest & Lungs: Diffuse end expiratory wheezing bilaterally. No respiratory distress. Cardiovascular: Regular Rate/Rhythm, 4/6 systolic ejection murmur best heard at the left upper sternal border with radiation to the neck. Abdomen: Non-tender, Non-distended, Normoactive bowel tones, Soft Skin: Papular rash located on the area of the patient's right scapula in the shape of a square, it is not dermatomal and it is not bilateral. Extremities: Edema (2+ pitting edema in LE bilat) Neurological: Grossly Neurologically Intact, Cranial Nerves 2-12 Intact, Normal Speech IVs and Medications Medications Reviewed: Medications were reviewed in detail Lab and Diagnostics Result Diagram: 07/30/1630907/30/16309 X-Rays, CTs and MRIs Date of Service: 07/29/16 1033 PROCEDURE: X-RAY CHEST ONE VIEW, PORTABLE ([id number]) IMPRESSION: 1. CHF. 2. Small bilateral pleural effusions. 3. Bibasilar atelectasis, pneumonia or aspiration. Please correlate with clinical and laboratory data. When Dictated by: Lexis Martino MD, PhD on 07/29/2016 at 11:18 Approved by: Lexis Martino MD, PhD on 07/29/2016 at 11:19 12-lead ECG NSR at [address] elevation/depression Cardiac Echo Impressions Echocardiogram Report Interpretation Summary The left ventricle is normal in size. Left ventricular ejection fraction is estimated to be 50 +/- 5%. Compared to the prior exam, the left ventricular function is reduced. There is moderate hypokinesis of the base to mid anterior wall extending in to the base to mid anterolateral wall (New). The right ventricular systolic function is normal. There is moderate mitral regurgitation. Compared to the prior echo study, there has been an increase in the severity of mitral regurgitation. A bicuspid aortic valve cannot be excluded. The aortic valve is heavily calcified. Leaflet mobility is severely reduced. As sev ratio: 0.17 The peak aortic velocity is 2.92 m/sec. The aortic valve mean gradient is 20.3 mmHg. The peak aortic velocity on the previous exam was 3.36 m/sec. The calculated aortic valve area is 0.54 cm2. There is severe aortic stenosis ( Paradoxically low gradient). Compared to the prior echo study, there has been an increase in the severity of aortic stenosis. There is mild to moderate aortic regurgitation. Compared to the prior echo study, there has been an increase in the severity of aortic regurgitation. The IVC is dilated (diameter is greater than 2.1 cm) and it collapses less than 50% with a sniff. This suggests a high right atrial pressure of 15 mm Hg. There is a moderately large left-sided pleural effusion. Reading Physician:PM Assessment & Plan 70 year old female with history hypertension and diabetes mellitus and somewhat newly diagnosed atrial fibrillation presents with ongoing and worsening dyspnea on exertion, orthopnea and lower extremity edema with echocardiogram suggestive of significant valvulopathy and significant wall motion abnormality as well. Hospital day 2. 1. Suspected acute NSTEMI given elevated Troponin and "moderate hypokinesis of the base to mid anterior wall extending in to the base to mid anterolateral wall" noted on echocardiogram today. Present on admission. Active. - alternatively the elevated Troponin may due to demand ischemia from underlying acute CHF while the wall motion abnormality due to an earlier and possible silent NV - currently patient denies any chest pain and says dyspnea improving after receiving furosemide earlier in the emergency department -Troponin elevated 3 - BNP 16,310 - Triglycerides 129, total cholesterol 165, LDL 100, HDL 39 - Start aspirin daily - Start atorvastatin - Continue home dose beta keturah - Echocardiogram showed an ejection fraction of 50+ or -5%. Left ventricular function is reduced. Mild hypokinesis of the base to the mid anterior wall extending to the base to mid anterolateral wall, which is new. The aortic valve is heavily calcified. He I cuspid aortic valve cannot be excluded. Compared to prior echocardiogram, there has been increase in the severity of aortic stenosis. - Cardiology consulted and in following. There are time and recommendations are appreciated 2. Acute systolic and diastolic congestive heart failure, present on admission. Active. - etiology likely combination of ischemic cardiomyopathy and valvular heart disease -Continue with jugular venous furosemide daily - Follow daily weight and ins and outs -Cardiology consulted and following as above. -Continue with home dose losartan for now 3. Severe aortic stenosis ( Paradoxically low gradient) and moderate mitral regurgitation noted on Echo from 07/29/16, present on admission. Active. - Echocardiogram as above. - Since patient is a Taoism, her and her family contacted [facility] [place] to find a surgeon that would perform an aortic valve replacement without blood products. The accepting cardiac surgeon at [facility] is Dr. Gianfranco Chamberlain per the family. Family also states that Dr. Chamberlain would like to perform the coronary angiogram with heart catheterization immediately prior to an aortic valve replacement surgery. They state that it can be done tomorrow. 4. History of hypertension. stable. -Continue with home dose losartan and metoprolol 5. Diabetes Mellitus -Continue with home dose Lantus - Cover with ISS - HgA1C is pending - Hold insulin if blood glucose less than 150 6. History of hypothyroidism - TSH 2.150, free T4 1 0.98 - Continue with home dose Levothyroxine for now 7. Somewhat recently diagnosed atrial fibrillation. Present on admission. Active. - Patient has had 2 episodes of atrial fibrillation with RVR while done to bedside commode today. Both both episodes return to normal sinus rhythm. -Continue with metoprolol and diltiazem 8. Anticoagulation with Coumadin with supra-therapeutic INR present on admission. Active. - Initial INR 6.09, repeat INR today 6.89 -Continue to hold warfarin -Recheck INR in the morning -Blood work should be drawn using pediatric needles since she is a Taoism and we want to avoid excess bleeding. 9. Rash, present on admission. -Unlikely to be shingles because it is not bilateral and it spans multiple dermatomes -Continue to monitor Expected length of hospital stay is greater than 2 midnights and likely 3-4 days. GI Prophylaxis: Proton Pump Inhibitor VTE Prophylaxis: Theraputic Anticoag with Warfarin, SCDs VTE Mechanical Devices: Intermittant Pneumatic CD Resuscitation Status: CPR: Attempt Resuscitation (discussed and verified with the patient) Attending Statement The patient was seen and examined together with Dr. Ayon on 07/30/2016 and I agree with the history, exam and plan as outlined in the note above. . Alicia Ayon DO Jul 30, 2016 11:37 Carlton Zacarias MD Aug 01, 2016 16:26
[2016-07-31] VITALS (7 sets, daily range): BP systolic 120–171; BP diastolic 55–73; PULSE 76–158; RESP 18–32; O2SAT 94–97
--- NOTE | 2016-07-31 01:26 | NUR ---
PT thus far has been mostly in NSR. Aside from about 1/2 hour when she converted to afib, but was rate controlled. She went back to SR without any intervention. Her b/p maintained normal range t/o. Dr Jacobson notified in person of situation. Will CTM.
--- NOTE | 2016-07-31 03:15 | NUR ---
SInce prior episode of brief a-fib, pt has been in NSR to sinus gui with some PAC's noted. Rash to back has not worsened and is not bothersome to pt. SHe voids using bedpan. Only faint crackles were heard in posterior R lobe. Denies cough. No pain noted. +1 pitting edema noted to BLE. SCD's on. DP weak to palpate. Held bedtime NPH per order parameter. PT remains on 1L NC t/o the night as she desats when talking to high 80's. Otherwise vitals stable. Will CTM. Addendum: 07/31/16 at 0324 by VIRAJ WASHINGTON RN PT has been notably anxious about the new dx. she has received and about her upcoming transfer today to [facility] for valve replacement and angio. Tearful at times on the phone with family. She has a good support system.
[2016-07-31 04:00] LABS: INR 1.96 ratio
[2016-07-31] MEDS ORDERED: Diltiazem 5 mg/mL 5 mL Inj IVPUSH ONE ×3 (05:10→12:30)
--- NOTE | 2016-07-31 06:00 | NUR ---
AFIB PT converted back to NSR after one dose of diltiazem 10mg. HR in 80's.
[2016-07-31 07:03] LABS: BASOPHILS % (AUTO) 0.7 % (0-3); EOSINOPHILS % (AUTO) 3.3 % (0-5); MONOCYTES % (AUTO) 10.9 % (4-12); Mean Corpuscular Hemoglobin 26.7 pg (27.0-35.0); Mean Corpuscular Volume 83.1 fL (81-100); NEUTROPHILS % (AUTO) 56.2 % (40-74); Platelet Count 196 bil/L (150-400)
[2016-07-31] MEDS: Insulin Human NPH 100 Unit/mL 3 mL Inj SUBQ SCH (08:30)
[2016-07-31] MEDS: Insulin Human REGular 300 Unit/3 mL Inj SUBQ SCH ×2 (09:28→11:55)
[2016-07-31] MEDS: Furosemide 10 mg/mL 4 mL Inj IVPUSH SCH (09:30)
--- NOTE | 2016-07-31 12:12 | PCM.DIMED ---
Alicia Ayon DO 07/31/16 1212: Discharge Instructions Date of Service Jul 31, 2016 Dates of Hospitalization Jul 29, 2016 at 13:41 Diet Diabetic Activity Limited until seen by PCP Call your provider Fever or Chills, Shortness of breath, Bleeding, Chest pain, Weakness (unilateral ) Patient Instructions You are being transferred to [facility] for further evaluation and treatment. Follow-up Provider: Bonifacio Santacruz MD Follow-up with PCP in: 1 week Carlton Zacarias MD 08/01/16 1627: Discharge Instructions Attending's Statement The patient was seen and examined together with Dr. Ayon on 07/31/2016 and I agree with the history, exam and plan as outlined in the note above. . Alicia Ayon DO Jul 31, 2016 12:12 Carlton Zacarias MD Aug 01, 2016 16:27
--- NOTE | 2016-07-31 12:27 | PCM.DC.MED ---
Discharge Summary Date of Service Jul 31, 2016 Dates of Hospitalization Date of Hospital Admission Jul 29, 2016 at 13:41 Date of Discharge: Jul 31, 2016 Providers: Admitting Physician: Reza Tafoya Primary Care Physician: Bonifacio Santacruz MD Attending Physician: Reza Tafoya Diagnosis at Time of Discharge Diagnosis at Time of Discharge 1. Suspected acute non-ST elevation myocardial infarction 2. Acute systolic and diastolic congestive heart failure 3. Severe aortic stenosis 4. History of hypertension 5. Diabetes Mellitus 6. History of hypothyroidism 7. Atrial fibrillation 8. Anticoagulation with warfarin with supra-therapeutic INR present on admission 9. Rash Procedures XRay, CTs & MRIs PROCEDURE: X-RAY CHEST ONE VIEW, PORTABLE Date of Service: 07/29/16 1033 IMPRESSION: 1. CHF. 2. Small bilateral pleural effusions. 3. Bibasilar atelectasis, pneumonia or aspiration. Please correlate with clinical and laboratory data. When Approved by: Lexis Martino MD, PhD on 07/29/2016 at 11:19 ECG 12 Lead NSR at [address] elevation/depression Cardiac Echo Impression Echocardiogram Report Interpretation Summary The left ventricle is normal in size. Left ventricular ejection fraction is estimated to be 50 +/- 5%. Compared to the prior exam, the left ventricular function is reduced. There is moderate hypokinesis of the base to mid anterior wall extending in to the base to mid anterolateral wall (New). The right ventricular systolic function is normal. There is moderate mitral regurgitation. Compared to the prior echo study, there has been an increase in the severity of mitral regurgitation. A bicuspid aortic valve cannot be excluded. The aortic valve is heavily calcified. Leaflet mobility is severely reduced. As sev ratio: 0.17 The peak aortic velocity is 2.92 m/sec. The aortic valve mean gradient is 20.3 mmHg. The peak aortic velocity on the previous exam was 3.36 m/sec. The calculated aortic valve area is 0.54 cm2. There is severe aortic stenosis ( Paradoxically low gradient). Compared to the prior echo study, there has been an increase in the severity of aortic stenosis. There is mild to moderate aortic regurgitation. Compared to the prior echo study, there has been an increase in the severity of aortic regurgitation. The IVC is dilated (diameter is greater than 2.1 cm) and it collapses less than 50% with a sniff. This suggests a high right atrial pressure of 15 mm Hg. There is a moderately large left-sided pleural effusion. Reading Physician:SRINIVASA Brief History From the history and physical performed by Dr. Reza Tafoya on [id number]: 70 year old female with history hypertension and diabetes mellitus was apparently diagnosed with atrial fibrillation in June of this year during a routine checkup by her primary care provider. She was started on Warfarin at that time and patient feels that since then she has been having ongoing and worsening dyspnea on exertion, orthopnea, lower extremity edema and weight gain. She saw Dr. Overton from cardiology for the first time few days ago who ordered an echocardiogram as outpatient. Patient had her echocardiogram done earlier today and due to the findings was recommended to come to the ED by the in tube conversion technician. In the ED workup was notable for elevated Troponin and BNP with chest x-ray suggestive of CHF. She reports some chest tightness but no significant chest pain. She otherwise denies any other associated symptoms. She received 40mg of IV Lasix in ED, full dose ASA, cardiology was consulted, and patient admitted to hospitalist service for further workup and treatment. Hospital Course 1. Suspected acute non-STelevation myocardial infarction given elevated troponin and "moderate hypokinesis of the base to mid anterior wall extending in to the base to mid anterolateral wall" noted on echocardiogram today. Present on admission. Active. - Alternatively the elevated troponin may due to demand ischemia from underlying acute congestive heart failure and severe aortic stenosis and the wall motion abnormality due to an earlier and possible silent myocardial infarction - Currently patient denies any chest pain and says dyspnea improving after receiving furosemide -Troponin elevated 4 - BNP 16,310 - Triglycerides 129, total cholesterol 165, LDL 100, HDL 39 - Started aspirin daily - Started atorvastatin - Continued home dose beta keturah - Echocardiogram showed an ejection fraction of 50+ or -5%. Left ventricular function is reduced. Mild hypokinesis of the base to the mid anterior wall extending to the base to mid anterolateral wall, which is new. The aortic valve is heavily calcified. A bicuspid aortic valve cannot be excluded. Compared to prior echocardiogram, there has been increase in the severity of aortic stenosis. - Cardiology consulted and followed. There were time and recommendations are appreciated -Patient was going to receive a coronary angiogram with heart catheterization today here, but since she was transferred to [facility] for a possible valve replacement surgery, it was not performed. -Transferred to [facility] for cardiothoracic surgery consultation 2. Acute systolic and diastolic congestive heart failure, present on admission. Active. - Etiology likely combination of ischemic cardiomyopathy and valvular heart disease -Continued with furosemide daily - Followed daily weight and ins and outs -Cardiology consulted and followed as above. -Continued with home dose losartan for now 3. Severe aortic stenosis ( Paradoxically low gradient) and moderate mitral regurgitation noted on Echocardiogram from 07/29/16, present on admission. Active. - Echocardiogram as above. 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 The accepting cardiac surgeon at [facility] is Dr. Gianfranco Chamberlain per the family. Family also states that Dr. Chamberlain would like to perform the coronary angiogram with heart catheterization immediately prior to an aortic valve replacement surgery. -Patient was transferred to [facility]. 4. History of hypertension. Stable. -Continued with home dose losartan and metoprolol 5. Diabetes Mellitus -Continued with home dose Lantus - Cover with insulin sliding scale - HgA1C was 7.7% - Held insulin if blood glucose less than 150 6. History of hypothyroidism - TSH 2.150, free T4 1 0.98 - Continued with home dose Levothyroxine for now 7. Somewhat recently diagnosed atrial fibrillation. Present on admission. Active. - Patient had episodes of atrial fibrillation with RVR while at bedside commode yesterday and today. Patient either spontaneously returned to normal sinus rhythm or converted to normal sinus rhythm after 10 mg of diltiazem. -Continued with metoprolol and diltiazem 8. Anticoagulation with warfarin with supra-therapeutic INR present on admission. Improved. - Initial INR 6.09, repeat INR today 1.94 -Blood work should be drawn using pediatric needles since she is a Worship and we want to avoid excess bleeding. 9. Rash, present on admission. -Unlikely to be shingles because it was not bilateral and it spans multiple dermatomes -Continued to monitor Exam Vital Signs (Last) Date Time Temp Pulse Resp B/P Pulse Ox O2 Delivery O2 Flow Rate FiO2 07/31/16 12:03 36.6 81 18 149/73 94 Nasal Cannula 1.00 Exam General: Alert, Oriented X3, Cooperative, No Acute Distress Head: Normal Eyes: PERRLA, EOMI, Scleral Anicteric Nose: Mucous Membr Moist/Shelly Mouth: Mucous Membr Moist/Shelly Neck: Supple Chest & Lungs: Scattered end expiratory wheezing bilaterally. No respiratory distress. Cardiovascular: Regular Rate/Rhythm, 4/6 systolic ejection murmur best heard at the left upper sternal border with radiation to the neck. Abdomen: Non-tender, Non-distended, Normoactive bowel tones, Soft Skin: Papular rash located on the area of the patient's right scapula in the shape of a square, it is not dermatomal and it is not bilateral. Extremities: Edema (1+ pitting edema in LE bilaterally) Neurological: Grossly Neurologically Intact, Cranial Nerves 2-12 Intact, Normal Speech Test 07/29/16 10:40 07/29/16 12:50 07/29/16 14:02 07/29/16 18:23 Hold Mchugh Top Tube Received (Received) Urine Color Yellow (YELLOW) Urine Appearance Hazy (CLEAR,HAZY) Urine pH 5.5 (5.0-8.0) Urine Specific Barron 1.030 (1.003-1.035) Urine Protein 300mg/dL (NEG,TRACE) Urine Glucose (UA) Negativemg/dL (NEGATIVE) Urine Ketones Negativemg/dL (NEGATIVE) Urine Occult Blood Large (NEGATIVE) Urine Nitrite Negative (NEGATIVE) Urine Bilirubin Negative (NEGATIVE) Urine Urobilinogen Normalmg/dL (NORMAL) Urine Leukocyte Esterase Negative (NEGATIVE) Urine RBC 11-50/hpf (0-2) Urine WBC 6-10/hpf (0-5) Urine Epithelial Cells Few/hpf (NONE-MOD) Urine Crystals None seen (NONE SEEN) Urine Bacteria Few/hpf (NONE-FEW) Urine Hyaline Casts Occasional/lpf (NONE) Urine Granular Casts None seen (NONE SEEN) Urine Waxy Casts None seen (NONE SEEN) Urine Red Blood Cell Casts None seen (NONE SEEN) Urine White Blood Cell Casts None seen (NONE SEEN) Urine Mucus Present (None Seen) Urine Trichomonas None seen (NONE SEEN) Urine Yeast None (NONE SEEN) Urinalysis Comment Transitional epi Urine Culture Reflexed Indicated Activated Partial Thromboplast Time 45.4sec (22.8-33.0) Hemoglobin A1c 7.7% (4.8-5.6) Thyroid Stimulating Hormone (TSH) 2.150uIU/mL (0.450-4.500) Free Thyroxine 1.98ng/dL (0.82-1.77) Test 07/30/16 03:10 07/30/16 09:40 07/31/16 03:20 Magnesium Level 1.9mg/dL (1.6-2.6) Pro-B-Type Natriuretic Peptide 22394jt/mL (0-301) Triglycerides Level 129mg/dL (0-149) Cholesterol Level 165mg/dL (100-199) LDL Cholesterol, Calculated 100.200mg/dL (0-99) VLDL Cholesterol 25.800mg/dL HDL Cholesterol 39mg/dL (>39) Cholesterol/HDL Ratio 4.23 (0.0-4.4) Troponin T 0.217ug/L (0.0-0.011) White Blood Count 4.5th/mm3 (3.8-10.1) Red Blood Count 4.20mil/mm3 (3.90-5.20) Hemoglobin 11.2g/dL (12.0-15.6) Hematocrit 34.9% (35.0-46.0) Mean Corpuscular Volume 83.1fL (81-100) Mean Corpuscular Hemoglobin 26.7pg (27.0-35.0) Mean Corpuscular Hemoglobin Concent 32.1% (32.0-37.0) Red Cell Distribution Width 16.5% (12.3-15.4) Platelet Count 196bil/L (150-400) Neutrophils (%) (Auto) 56.2% (40-74) Lymphocytes (%) (Auto) 28.7% (14-46) Monocytes (%) (Auto) 10.9% (4-12) Eosinophils (%) (Auto) 3.3% (0-5) Basophils (%) (Auto) 0.7% (0-3) Prothrombin Time 21.3sec (8.1-12.5) Prothromb Time International Ratio 1.96ratio Sodium Level 143mEq/L (134-144) Potassium Level 3.8mEq/L (3.5-5.2) Chloride Level 103mEq/L (97-108) Carbon Dioxide Level 21mmol/L (18-29) Blood Urea Nitrogen 17mg/dL (8-27) Creatinine 0.61mg/dL (0.57-1.00) Estimat Glomerular Filtration Rate 138mL/min (>59) Glucose Level 87mg/dL (60-99) Calcium Level 8.2mg/dL (8.5-10.1) Total Bilirubin 0.7mg/dL (0.0-1.2) Aspartate Amino Transf (AST/SGOT) 15U/L (0-50) Alanine Aminotransferase (ALT/SGPT) 8U/L (0-32) Alkaline Phosphatase 84U/L (25-165) Total Protein 5.1g/dL (6.4-8.4) Albumin 2.8g/dL (3.4-5.0) Procalcitonin 0.08ng/mL (0.00-0.08) Discharge Medications Discharge Medications Folic Acid (Folic Acid) 1 Mg Tablet 1 MG PO DAILY (Reported) Levothyroxine (Levothyroxine) 75 Mcg Tablet 75 MCG PO DAILY (Reported) Losartan Potassium (Losartan Potassium) 50 Mg Tablet 50 MG PO DAILY (Reported) Metoprolol Succinate ER (Metoprolol Succinate ER) 50 Mg Tab.er.24h 50 MG PO TID (Reported) NPH, Human Insulin Isophane (HUMulin-N U100 Insulin Vial) 100 Unit/1 Ml Vial 30 UNITS SQ MORNING (Reported) NPH, Human Insulin Isophane (HUMulin-N U100 Insulin Vial) 100 Unit/1 Ml Vial 10 UNIT SUBQ HS (Reported) Omeprazole (Omeprazole) 20 Mg Capsule.dr 20 MG PO Every Other Day (Reported) Warfarin Sodium (Warfarin Sodium) 2.5 Mg Tablet 2.5 MG PO DAILY (Reported) Followup Plan Discharge Diet: Diabetic Discharge Activity: Limited until seen by PCP Patient Instructions You are being transferred to [facility] for further evaluation and treatment. Follow-up Provider: Bonifacio Santacruz MD Follow-up with PCP in: 1 week Time spent Greater than 30 minutes was spent in preparation of discharge with greater than 50% of that time dedicated to patient counseling and coordination of care. . Attending Statement The patient was seen and examined together with Dr. Ayon on 07/31/2016 and I agree with the history, exam and plan as outlined in the note above. . copies to: Bonifacio Santacruz MD, Marissa L DO Feb 9, 2017 12:27 Carlton Zacarias MD Aug 01, 2016 16:28
--- NOTE | 2016-07-31 13:53 | NUR ---
A fib/Discharge Pt SR in the 80s/90s this am up until ~1215 today when she converted back to a fib in the 140s-160s. Pt denied pain, BP WNL. notified of conversion and 10mg IV dilt dose ordered/administered. Pt still in a fib in the 120s-150s prior to transferring via ALS. Receiving RN at [facility] Jennifer made aware during report as well as ALS crew transporting the Pt upon their arrival. Pt left facility via ALS at ~1330.
== END 2016-07-31 13:32 | disposition short-term general hospital (02) | DRG 280 ==
LOC: SED 10:03 → MPC 13:41 → PCC 21:12
PROVIDERS: ADMIT Internal Medicine; ATTEND Internal Medicine
DX: I21.4 Non-ST elevation (NSTEMI) myocardial infarction (principal); I50.43 Acute on chronic combined systolic (congestive) and diastolic (congestive) heart failure; J44.1 Chronic obstructive pulmonary disease with (acute) exacerbation; I24.8 Other forms of acute ischemic heart disease; Z79.4 Long term (current) use of insulin; Z79.01 Long term (current) use of anticoagulants; I35.0 Nonrheumatic aortic (valve) stenosis; I34.0 Nonrheumatic mitral (valve) insufficiency; I10 Essential (primary) hypertension; E11.9 Type 2 diabetes mellitus without complications; E03.9 Hypothyroidism, unspecified; I48.91 Unspecified atrial fibrillation; R79.1 Abnormal coagulation profile

== ENCOUNTER 2016-10-02 10:55 | Inpatient (IN) | payer MEDICARE, OTHER ==
[~2016-10-02] VITALS: Ht 165.1 cm; Wt 71.6 kg
[~2016-10-02 10:55] MED LIST: FOLI1TAB18 PO; LEVO75TA4 PO; LOSA50TA37 PO; METO-272 PO; NPH,100V11 SQ; NPH,100V11 SUBQ; OMEP20CA11 PO; WARF2.5T82 PO
[2016-10-02 11:06] VITALS: BP 166/86; PULSE 79; RESP 18; O2SAT 91
[2016-10-02 11:26] VITALS: O2SAT 98
--- NOTE | 2016-10-02 11:27 | ED.REPORT ---
HPI-Chest Pain 40 and Over Date of Service Oct 02, 2016 ED Provider: Willard Melendez PA-C Shows a 71-year-old female with a recent history of 5 stents placed who presents to emergency department with a chief complaint of heaviness in her chest. She reports having surgery at [facility] on August [address] 5 st[address]. Since then she has been in a care facility ([facility] She first noticed heaviness in her chest approximately 6 days ago. Denies pain, fever, nausea, vomiting, sweating. She was seen for this at [facility] and discharged to the care facility. Approximately 4 days ago she developed a cough productive of green sputum for which she has been prescribed and antibiotics, possibly levofloxacin, which she has been taking for 2 days. Today she reports that the heaviness in her chest has progressively worsened since onset. She was noted to have low O2 saturation at the care center and was sent to this department for evaluation. She continues to deny fever, pain, nausea, vomiting, sweating, hemoptysis, leg swelling. Nursing Notes Stated Complaint: SOB/HEART PALPITATIONS Chief Complaint: Respiratory Complaints Nursing Notes Reviewed: Yes Allergies: Coded Allergies: TAPE (Verified Allergy, Severe, RASH/BURN, 10/02/16) Penicillins (Verified Allergy, Unknown, hives, angioedema, 10/02/16) Scheduled Ascorbic Acid (Vitamin C) 250 Mg Tab.chew 250 MG PO QAM Aspirin Chew (Aspirin Chew) 81 Mg Chew 81 MG PO QAM Atorvastatin (Lipitor) 20 Mg Tablet 20 MG PO HS Clopidogrel (Clopidogrel) 75 Mg Tablet 75 MG PO QAM Enoxaparin (Lovenox) 80 Mg/0.8 Ml Syringe 70 MG SUBQ Q12H Ferrous Sulfate (Ferrous Sulfate) 325 Mg Tablet 325 MG PO QAM Folic Acid (Folic Acid) 1 Mg Tablet 1 MG PO QAM Furosemide (Furosemide) 20 Mg Tab 60 MG PO QAM Insulin Glargine (Lantus U100 Insulin Vial) 100 Unit/Ml Vial 15 UNIT SUBQ QAM Insulin Human Lispro (HumaLOG U100 Insulin Vial) 100 Unit/Ml Unit 4 UNIT SUBQ TIDWM Check blood sugars before meals and at bedtime. Use correction factor only before meals. Blood Sugar Lispro Correction: <151, 0 units; 151-175, 1 unit; 176-200, 2 units; 201-225, 3 units; 226-250, 4 units; 251-275, 5 units; 276-300 , 6 units; 301-325, 7 units; 326-350, 8 units; 351-375, 9 units; 376-400, 10 units; >400, 12 units. L. Rhamnosus GG/Inulin (Culturelle Capsule) 10 Billion Cell-200 Mg Cap.sprink 1 EACH PO DAILY X 14 DAYS Levofloxacin (Levofloxacin) 500 Mg Tablet 500 MG PO DAILY X 7 DAYS Levothyroxine (Levothyroxine) 88 Mcg Tablet 88 MCG PO QAM Metoprolol Tartrate (Metoprolol Tartrate) 25 Mg Tablet 25 MG PO BID Metronidazole (Flagyl) 500 Mg Tablet 500 MG PO BID Multivit with Calcium,Iron,Min (Therapeutic M) 1 Each Tablet 1 EACH PO QAM Pantoprazole DR (Pantoprazole DR) 40 Mg Tablet.dr 40 MG PO DAILYAC Potassium Chloride ER (Potassium Chloride ER) 20 Meq Tablet.er 20 MEQ PO DAILYWM TAKE WITH FOOD Warfarin Sodium (Warfarin Sodium) 2.5 Mg Tablet 2.5 MG PO QPM Scheduled PRN Acetaminophen (Acetaminophen) 325 Mg Tablet 650 MG PO Q6H PRN PRN For Fever Bisacodyl (Dulcolax Rectal) 10 Mg Supp.rect 10 MG RC DAILY PRN PRN For Constipation NO BOWEL MOVEMENT 8 HRS POST MOM Calcium Carbonate (Tums) 500 Mg Tab.chew 500 MG PO Q8H PRN PRN For Dyspepsia or Heartburn Docusate Sodium (Colace) 100 Mg Capsule 100 MG PO DAILY PRN PRN For Constipation Hydroxyzine Pamoate (HydrOXYzine Pamoate) 25 Mg Capsule 25 MG PO HS PRN PRN For Insomnia Ipratropium/Albuterol Sulfate (Iprat-Albut 0.5-3(2.5) mg/3 mL Inhalant Soln) 3 Ml Ampul.neb 3 ML IH Q6 PRN PRN For Shortness of Breath Magnesium Hydroxide (Milk of Magnesia) 400 Mg/5 Ml Oral.susp 30 ML PO DAILY PRN PRN For Constipation 1ST LINE FOR NO BOWEL MOVEMENT IN 72 HRS Melatonin (Melatonin) 5 Mg Tablet 5 MG PO HS PRN PRN Insomnia Na Phos,M-B/Na Phos,Di-Ba (Fleet Enema) 133 Ml Enema 133 ML RC DAILY PRN PRN For Constipation NO BOWEL MOVEMENT 8 HRS POST DULCOLAX SUPP Nitroglycerin SL (Nitroglycerin SL) 0.4 Mg Tab.subl 0.4 MG SL Q5MIN PRN PRN For Chest Pain Ondansetron (Ondansetron) 4 Mg Tablet 4 MG PO Q6H PRN PRN For Nausea/Vomiting Polyethylene Glycol 3350 (Polyethylene Glycol 3350) 17 Gm Powd.pack 17 GM PO DAILY PRN PRN For Constipation Sennosides (Senna) 8.6 Mg Tablet 17.2 MG PO BID PRN PRN For Constipation diphenhydrAMINE HCl (Unisom Sleepmelts) 25 Mg Tab.rapdis 25 MG PO Q6H PRN PRN For Itching General Time Seen by MD: 11:05 Chief Complaint Chest pressure Sudden in Onset?: No Past Medical History Past Medical History Denies history of DVT Polymyositis Reports: Diabetes mellitus, Hypertension Smoking History Never Smoker Review of Systems General: Denies fever, chills, malaise. HEENT: Denies congestion, headache, sore throat. Respiratory: Admits cough, shortness of breath. Denies hemoptysis Cardiovascular: Admits heaviness in her chest. Denies chest pain, palpitations. Gastrointestinal: Denies vomiting, diarrhea, abdominal pain. Genitourinary: Denies frequency, urgency, dysuria, hematuria. Otherwise as noted in HPI. Physical Exam General: Well appearing, frail, no acute distress. Head: Atraumatic, normocephalic. Eyes: No scleral icterus or injection. No discharge. Vision grossly intact. ENT: Voice clear, hearing grossly intact. Respiratory: Clinically evident wet cough. Regular rate and rhythm. Rales in all parks, worse in the left base. No respiratory distress. No increased work of breathing, speaks in complete sentences. Cardiovascular: Regular rate and rhythm, 3/6 murmur loudest at left sternal border. No pedal edema. Gastrointestinal: Abdomen flat and non-tender without guarding or rebound. Bowel sounds normoactive. Skin: Warm and dry. Neurological: Grossly nonfocal. Psychological: Alert and oriented x3. Speech appropriate, linear and logical. Behavior appropriate. Initial Vital Signs Vital Signs (First) Date Time Temp Pulse Resp B/P Pulse Ox O2 Delivery O2 Flow Rate FiO2 10/02/16 11:06 36.6 79 18 166/86 91 Room Air 10/02/16 11:26 2 Initial VS: Vital signs abnormal (elevated blood pressure, low O2 saturation) Interpretation & Diagnostics Lab Results Interpretation Result Diagram: 10/05/16 0555 10/05/16 0555 Test 10/02/16 11:55 10/02/16 12:00 10/02/16 12:05 Urine Legionella pneumophilia Ag Negative (Negative) D-Dimer 1.27mg/L FEU (<0.50) Hold Mchugh Top Tube Received (Received) Urine Color Yellow (YELLOW) Urine Appearance Hazy (CLEAR,HAZY) Urine pH 7.0 (5.0-8.0) Urine Specific Lincoln 1.015 (1.003-1.035) Urine Protein 100mg/dL (NEG,TRACE) Urine Glucose (UA) Negativemg/dL (NEGATIVE) Urine Ketones Negativemg/dL (NEGATIVE) Urine Occult Blood Trace (NEGATIVE) Urine Nitrite Negative (NEGATIVE) Urine Bilirubin Negative (NEGATIVE) Urine Urobilinogen Normalmg/dL (NORMAL) Urine Leukocyte Esterase Negative (NEGATIVE) Urine RBC 0-2/hpf (0-2) Urine WBC 0-5/hpf (0-5) Urine Epithelial Cells Occasional/hpf (NONE-MOD) Urine Crystals None seen (NONE SEEN) Urine Bacteria None/hpf (NONE-FEW) Urine Hyaline Casts None/lpf (NONE) Urine Granular Casts None seen (NONE SEEN) Urine Waxy Casts None seen (NONE SEEN) Urine Red Blood Cell Casts None seen (NONE SEEN) Urine White Blood Cell Casts None seen (NONE SEEN) Urine Mucus None seen (None Seen) Urine Trichomonas None seen (NONE SEEN) Urine Yeast None (NONE SEEN) Urinalysis Comment None Urine Culture Reflexed Not indicated Lab Results Interpretation: ProBNP 85162, which [place] [id number] X-Ray Chest Interpretation Chest Xray Interpretation: PROCEDURE: X-RAY CHEST ONE VIEW, PORTABLE ([id number]) INDICATIONS: SHORTNESS OF BREATH IMPRESSION: Improved aeration of the lungs with residual right diaphragmatic elevation and probable scarring/atelectasis at the left lung base. Superimposed left basilar pneumonia cannot be excluded. View: Portable Interpretation / Wet Read by: Interpret - Radiologist, Interp - P Re-Eval/Medical Decision Consultation #1: Referral / Consult Name: Kj Roth MD Consulted With: Hospitalist Call Returned at: 16:48 Note: Asked that I consult Dr. Blancas regarding elevated troponin and EKG. Consultation #2: Referral / Consult Name: Waldo Blancas MD Consulted With: Cardiology Call Returned at: 16:54 Note: I discussed the case with Dr. Blancas who reviewed the chart and these EKG. He does not find EKG concerning. He feels the patient should be admitted to the hospitalist service for treatment of PE. Consultation #3: Referral / Consult Name: Kj Roth MD Consulted With: Hospitalist Call Returned at: 17:07 Dough Maker: Accepts admit Consultation #4: Note: Discussed the case with the patient's bank examiner, , at [facility]. He agrees with plan to heparinize the patient and admit to treat for pulmonary embolus. He requests bilateral ultrasounds of the lower extremity. He asks that the patient follow-up with him. Discharge & Departure Primary Impression: Pulmonary embolus Pulmonary embolism type: other Chronicity: acute Additional Impressions: Hospital-acquired pneumonia Elevated troponin Elevated brain natriuretic peptide (BNP) level Disposition: ADMITTED TO HOSPITAL Referrals: Bonifacio Santacruz MD (PCP) Crit Care Except Billable Proc Time Spent: 30-74 minutes Services Performed: Patient management by me, Time spent at bedside, Reviewing test results, Reviewing imaging, Discussing patient care, Documentation in record, Time with fam/surrogate EDSupervising Provider for APC: Hakeem Balbuena MD Attending Statement I discussed patient with GUILLAUME Melendez. I saw and evaluated the patient independently. In brief 71-year-old female with shortness breath. CT [place] chest shows small peripheral PEs and right lower lobe pneumonia. She has recently lost admission therefore we treated for healthcare associated pneumonia and PE. Heparin drip. Broad-spectrum antibiotics. Full code. copies to: Bonifacio Santacruz MD, Seth JOSE Oct 02, 2016 11:27 Hakeem Balbuena MD Oct 02, 2016 15:36 Urine Red Blood Cell Casts None seen (NONE SEEN) Urine White Blood Cell Casts None seen (NONE SEEN) Urine Mucus None seen (None Seen) Urine Trichomonas None seen (NONE SEEN) Urine Yeast None (NONE SEEN) Urinalysis Comment None Urine Culture Reflexed Not indicated Lab Results Interpretation: ProBNP 13594, which [place] [id number] X-Ray Chest Interpretation Chest Xray Interpretation: PROCEDURE: X-RAY CHEST ONE VIEW, PORTABLE ([id number]) INDICATIONS: SHORTNESS OF BREATH IMPRESSION: Improved aeration of the lungs with residual right diaphragmatic elevation and probable scarring/atelectasis at the left lung base. Superimposed left basilar pneumonia cannot be excluded. View: Portable Interpretation / Wet Read by: Interpret - Radiologist, Interp - [facility] Re-Eval/Medical Decision Consultation #1: Referral / Consult Name: Kj Roth MD Consulted With: Hospitalist Call Returned at: 16:48 Note: Asked that I consult Dr. Blancas regarding elevated troponin and EKG. Consultation #2: Referral / Consult Name: Waldo Blancas MD Consulted With: Cardiology Call Returned at: 16:54 Note: I discussed the case with Dr. Blancas who reviewed the chart and these EKG. He does not find EKG concerning. He feels the patient should be admitted to the hospitalist service for treatment of PE. Consultation #3: Referral / Consult Name: Kj Roth MD Consulted With: Hospitalist Call Returned at: 17:07 Dough Maker: Accepts admit Consultation #4: Note: Discussed the case with the patient's bank examiner, , at [facility]. He agrees with plan to heparinize the patient and admit to treat for pulmonary embolus. He requests bilateral ultrasounds of the lower extremity. He asks that the patient follow-up with him. Discharge & Departure Primary Impression: Pulmonary embolus Pulmonary embolism type: other Chronicity: acute Additional Impressions: Hospital-acquired pneumonia Elevated troponin Elevated brain natriuretic peptide (BNP) level Disposition: ADMITTED TO HOSPITAL Referrals: Bonifacio Santacruz MD (PCP) Crit Care Except Billable Proc Time Spent: 30-74 minutes Services Performed: Patient management by me, Time spent at bedside, Reviewing test results, Reviewing imaging, Discussing patient care, Documentation in record, Time with fam/surrogate EDSupervising Provider for APC: Hakeem Balbuena MD Attending Statement I discussed patient with GUILLAUME Melendez. I saw and evaluated the patient independently. In brief 71-year-old female with shortness breath. CT [place] chest shows small peripheral PEs and right lower lobe pneumonia. She has recently lost admission therefore we treated for healthcare associated pneumonia and PE. Heparin drip. Broad-spectrum antibiotics. Full code. copies to: Bonifacio Santacruz MD, Seth PA-C Oct 02, 2016 11:27 Hakeem Balbuena MD Oct 02, 2016 15:36
--- NOTE | 2016-10-02 11:37 | DRSVH ---
PROCEDURE: X-RAY CHEST ONE VIEW, PORTABLE ([id number]) INDICATIONS: SHORTNESS OF BREATH TECHNIQUE: One view of the chest was acquired. COMPARISON: [facility], CR, XR CHEST 1VW (PORTABLE), 07/29/2016, 10:41. FINDINGS: Surgical changes and devices: None. Lungs and pleura: Elevation of the right diaphragm is similar to the previous exam. Otherwise, the a eration of the lungs has improved in the interim. No definite consolidation, effusion, or pneumothor ax is evident. There may be mild left basilar atelectasis. Mediastinum: Mediastinal contours appear normal. Heart size is normal. There is aortic atheroscler osis. Bones and chest wall: No suspicious bony lesions. Overlying soft tissues appear unremarkable. IMPRESSION: Improved aeration of the lungs with residual right diaphragmatic elevation and probable s carring/atelectasis at the left lung base. Superimposed left basilar pneumonia cannot be excluded. Dictated by: Ibrahima Case M.D. on 10/02/2016 at 10:34 Approved by: Ibrahima Case M.D. on 10/02/2016 at 10:35
[2016-10-02 12:15] LABS: BASOPHILS % (AUTO) 1.5 % (0-3); EOSINOPHILS % (AUTO) 1.9 % (0-5); MONOCYTES % (AUTO) 11.2 % (4-12); Mean Corpuscular Hemoglobin 27.9 pg (27.0-35.0); Mean Corpuscular Volume 88.1 fL (81-100); Platelet Count 339 bil/L (150-400)
[2016-10-02 12:22] LABS: COLOR,URINE YELLOW (YELLOW)
[2016-10-02 12:23] LABS: APPEARANCE,URINE HAZY (CLEAR,HAZY); OCCULT BLOOD,URINE TRACE (NEGATIVE); UROBILINOGEN,URINE NORMAL (NORMAL)
[2016-10-02 13:15] LABS: Magnesium 2.1 mg/dL (1.6-2.6)
[2016-10-02 13:20] LABS: TROPONIN T 0.193 ug/L (0.0-0.011)
[2016-10-02 14:44] VITALS: BP 145/80; PULSE 73; RESP 21; O2SAT 97
--- NOTE | 2016-10-02 15:33 | DRSVH ---
PROCEDURE: CT ANGIO CHEST PULMONARY EMBOLISM ([id number]) INDICATIONS: chest pain, elevated ddimer 1.2 TECHNIQUE: After the administration of intravenous contrast, 2 mm thick sections acquired from the pulmonary api [place] to the posterior costophrenic angles. 3-dimensional maximum intensity projection (MIP) coronal a nd sagittal reformats were then acquired through the thorax. For radiation dose reduction, the follo wing was used: automated exposure control, adjustment of mA and/or kV according to patient size. COMPARISON: None. FINDINGS: Image quality: Excellent. Pulmonary arteries: Main pulmonary arterial trunk is not enlarged. However, there is slight prominen ce of the right and left pulmonary arteries. Filling defects are seen within the distal aspect of th e right main pulmonary arterial trunk. There are small intraluminal filling defects noted within the right lower lobe and possibly involving the left lower lobe within the pulmonary arteries in these r egions. No large pulmonary embolus is evident. Lungs and pleura: Extensive bronchial wall thickening is noted within the bilateral lower lobes. The re is tree in the nodularity noted within the lower lobes (record and left) with areas of groundglass attenuation and moderate consolidation. Additional areas of groundglass attenuation throughout the remainder of the lungs is identified, which may be related to expiratory technique. There is no larg e effusion or pneumothorax. No lung masses appreciated. Evaluation for pulmonary nodules is limited on this examination. Debris is noted within the right lower lobe bronchi. Mediastinum: Heart size is normal, with a small pericardial effusion. Thoracic aorta is normal in c aliber and enhancement. Esophagus is normal in caliber, without hiatal hernia. No mediastinal mass is evident. However, there is extensive mediastinal and hilar lymph nodes (right hilar greater than left). The largest mediastinal lymph node measures at least 1.5 cm in short axis and is located with in the aortopulmonary window. Confluent prominent lymph nodes within the subcarinal region and right infrahilar region are noted. Bones and chest wall: No suspicious bony lesions. Ribs and thoracic spine appear intact throughout. Thyroid gland is mildly heterogeneous with probable bilateral inferior thyroid nodules. No axillar y or supraclavicular adenopathy. Abdomen: The included portions of the upper abdomen demonstrates the spleen to be slightly prominent in size. Cholecystectomy changes of the liver are noted. Non-masslike enlargement of the bilateral adrenal glands is present. There are small upper mediastinal lymph nodes with the largest located wi thin the region of the lesser sac, measuring up to 10 mm in short axis (image 126, series 6). Approx imately 50% narrowing involving the superior mesenteric artery is present related to atherosclerotic changes. IMPRESSION: 1. Small pulmonary emboli within the right lower lobe pulmonary arteries. 2. Bibasilar pneumonia. The possibility of superimposed aspiration is difficult to exclude. 3. Prominent mediastinal lymph nodes are likely reactive. A followup CT of the chest is recommended in approximately 3 months to reevaluate these nodes. 4. Cardiomegaly. 5. 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 6. Probable inferior thyroid nodules. Dedicated thyroid ultrasound would be helpful for better ashley acterization a nonemergent basis. Note: Impressions 1-3 were discussed with Hakeem Balbuena at 1427 hours ([facility]) on 10/02/2016. Dictated by: Ibrahima Case M.D. on 10/02/2016 at 14:18 Approved by: Ibrahima Case M.D. on 10/02/2016 at 14:31
[2016-10-02] MEDS ORDERED: Cefepime Inj 2 GM in IV Premix 1 EACH IV ONE (15:40)
[2016-10-02] MEDS ORDERED: levoFLOXacin Inj 750 MG in IV Premix 1 EACH IV ONE (15:40)
[2016-10-02] MEDS ORDERED: Heparin 5,000 Unit/mL Inj IVPUSH ONE ×2 (15:40→20:50)
[2016-10-02] MEDS ORDERED: Vancomycin Dose per Pharmacist XX ONE (15:40)
[2016-10-02] MEDS ORDERED: Heparin 25K Unit/500mL 0.45 NS 25,000 UNIT in IV Premix 1 EACH IV ONE ×2 (15:40→20:50)
[2016-10-02] MEDS ORDERED: Vancomycin Inj 1,500 MG in 0.9% Sodium Chloride 500 ML IV ONE (15:45)
[2016-10-02] MEDS ORDERED: Cefepime Inj 2,000 MG in Dextrose 5% Minibag Plus 100 ML IV SCH (15:49)
[2016-10-02] MEDS ORDERED: LEVO88TA4 PO (16:15)
[2016-10-02] MEDS ORDERED: Alum-Mag Hydrox-Simeth 30 mL Suspension PO PRN ×2 (16:20→19:20)
[2016-10-02] MEDS ORDERED: Ondansetron 2 mg/mL 2 mL Inj IVPUSH PRN ×2 (16:20→19:20)
[2016-10-02] MEDS ORDERED: INSU100V7 SUBQ (16:22)
[2016-10-02] MEDS ORDERED: ONDA-53 PO (16:22)
[2016-10-02] MEDS ORDERED: IPRA3AMP IH (16:22)
[2016-10-02] MEDS ORDERED: CALC500T9 PO (16:22)
[2016-10-02] MEDS ORDERED: LIP40 PO (16:22)
[2016-10-02] MEDS ORDERED: POLY17PO2 PO (16:22)
[2016-10-02] MEDS ORDERED: NITR0.4T6 SL (16:22)
[2016-10-02] MEDS ORDERED: MAGN400O4 PO (16:22)
[2016-10-02] MEDS ORDERED: INSLIS SUBQ (16:22)
[2016-10-02] MEDS ORDERED: ASPI81TA3 PO (16:22)
[2016-10-02] MEDS ORDERED: CLOP75TA28 PO (16:22)
[2016-10-02] MEDS ORDERED: LEVO500T79 PO (16:22)
[2016-10-02] MEDS ORDERED: LACT1CAP38 PO (16:22)
[2016-10-02] MEDS ORDERED: ACET325T51 PO (16:22)
[2016-10-02] MEDS ORDERED: METO25TA6 PO (16:22)
[2016-10-02] MEDS ORDERED: BISA10SU61 RC (16:23)
[2016-10-02] MEDS ORDERED: NA P133E23 RC (16:24)
[2016-10-02] MEDS ORDERED: ASCO250T7 PO (16:28)
[2016-10-02] MEDS ORDERED: MULT-140 PO (16:28)
[2016-10-02] MEDS ORDERED: HYDR-3797 PO (16:28)
[2016-10-02] MEDS ORDERED: DOCU-41 PO (16:28)
[2016-10-02] MEDS ORDERED: FUR20 PO (16:28)
[2016-10-02] MEDS ORDERED: MELA1TAB16 PO (16:28)
[2016-10-02] MEDS ORDERED: FERR-83 PO (16:28)
[2016-10-02] MEDS ORDERED: POTA-62 PO (16:28)
[2016-10-02] MEDS ORDERED: DIPH-36 PO (16:28)
[2016-10-02] MEDS ORDERED: MELA5TAB14 PO (16:29)
[2016-10-02] MEDS ORDERED: ATOR20TA PO (16:31)
[2016-10-02 19:02] VITALS: BP 163/73; PULSE 75; RESP 26; O2SAT 95
[2016-10-02] MEDS ORDERED: Polyethylene Glycol (PEG) 17 Gm Powder PO PRN ×2 (19:20→20:05)
[2016-10-02] MEDS: Vancomycin Dose per Pharmacist XX SCH (20:00)
[2016-10-02] MEDS ORDERED: hydrOXYzine Pamoate 25 mg Capsule PO PRN (20:05)
[2016-10-02] MEDS ORDERED: Magnesium Hydroxide 10 mL Oral Concentration PO PRN (20:05)
[2016-10-02] MEDS ORDERED: Sodium Biphos-Phos 133 mL Enema RECTAL PRN (20:05)
[2016-10-02] MEDS ORDERED: Albuterol-Ipratropium 3 mL Inhalation Solution INHALATION PRN (20:05)
[2016-10-02] MEDS ORDERED: Cefepime Inj 2,000 MG in Dextrose 5% Minibag Plus 100 ML IV ONE (20:08)
--- NOTE | 2016-10-02 20:11 | NUR ---
Admit nurse note Admission assessment completed in the ER. Pt. states her sob and her cp is manageable now at 08/01. PT. states she has muscle weakness from polymyocitis but normally lives at home. Most recently she has been living at [facility] after having stents placed 08/08/16. Pt. states she has slight dysphagia but does not alter her food texture. "I drink water with food to help it go down." Pt states she requires her pills crushed and on pudding. Med history obtained by ER pharmacist and entered in EHR. Allergies verified. Pt. oriented to room, call bojorquez and fall precautions. Family is currently at bedside. Pt. has advance directives in the EHR, including a no blood directive. Report is called to Fito Patel RN.
[2016-10-02] MEDS ORDERED: diphenhydrAMINE 25 mg Capsule PO PRN (20:35)
[2016-10-02 20:36] VITALS: BP 156/83; PULSE 77; RESP 18; O2SAT 98
[2016-10-02] MEDS: Sodium Chloride LOK Flush 10 mL Syringe IVFLUSH SCH (21:03)
[2016-10-02] MEDS ORDERED: Heparin 5,000 Unit/mL Inj IVPUSH PRN (21:50)
[2016-10-02] MEDS ORDERED: Heparin 25K Unit/500mL 0.45 NS 25,000 UNIT in IV Premix 1 EACH IV SCH (21:50)
--- NOTE | 2016-10-02 21:57 | PCM.CONPHA ---
Assessment/Plan Assessment/Plan Pharmacy Kinetic Dosing Vancomycin Indication: HCAP Vanc goal trough: 15-20mcg/mL Pt wt: 71.8 kg Other ABX: CEFEPIME Cultures: Blood PENDING SCr: 0.83 mg/dL Assessment/Plan: - Loading dose of Vancomycin 1500 mg given in ED for (20 mg/kg dosing) -Will continue Vancomycin 1000 mg Q12H (15 mg/kg dosing) with trough scheduled prior to 4th dose on 10/04/16 @0530 Pharmacy appreciates consult and will continue to monitor. Bebe Ruiz PharmD Oct 02, 2016 21:57
[2016-10-02 22:02] VITALS: PULSE 77; RESP 18; O2SAT 98
[2016-10-02 22:10] LABS: INR 1.1 ratio
--- NOTE | 2016-10-02 22:11 | PCM.HPMED ---
Subjective Date of Service Oct 02, 2016 Primary Provider: Admitting Physician: Kj Roth MD Primary Care Physician: Bonifacio Santacruz MD Attending Physician: Kj Roth MD Chief Complaint: Chest pressure and shortness of breath History of Present Illness: The patient is a pleasant 71-year-old white female Christianity with history of presenting to [facility] in July with diagnosis of atrial fibrillation, congestive heart failure, anasarca and myocardial infarction. Patient for 2 days had fluid removed and due to her children as witness leaves patient was transferred to [facility] on August 08 and was cared for by Dr. Calero who plays 5 coronary stents. Patient was told that she also needed to have a TAVR however she was too malnourished to undergo the procedure after just having 5 stents placed. Patient was then sent to [facility] in [place]. Patient has resided there since. 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 Patient has a follow- up appointment with Dr. Calero on Thursday. Approximate 4 days prior to this admission she developed cough for the per Dr. larson of green sputum. Patient went to [facility] and was diagnosed with pneumonia and was placed on levofloxacin. She states she has been taking the levofloxacin for at least 2 days. Today she reported that she had heaviness in her chest which was progressively worse she is noted to have a low oxygen saturation at the [facility] and the staff there called 911. The patient was brought to [facility] emergency room for evaluation and treatment. Patient was evaluated by Willard Melendez PA-C and Dr. Hakeem Balbuena. Patient had a chest x- ray which showed improved aeration lungs with residual right diaphragmatic elevation and probable scarring/atelectasis of the left lung base. Superimposed left basilar pneumonia cannot be excluded. He was found to have a pro B-type natriuretic peptide of 18,427 she also was found to have an elevated troponin of 0.193. CT scan with angiogram of the chest showed small pulmonary emboli within the right lower lobe pulmonary arteries. Bibasilar pneumonia. The possibility of superimposed aspiration is difficult to exclude. Prominent mediastinal lymph nodes are likely reactive. A followup CT of the chest is recommended in approximately 3 months to reevaluate these nodes. Cardiomegaly. 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 Probable inferior thyroid nodules. Dedicated thyroid ultrasound would be helpful for better characterization a nonemergent basis. Dr. Waldo Blancas was called by Willard Melendez PA-C and he reviewed the chart and the patient's EKG. He did not find the EKG concerning. He felt that the patient should be admitted to the hospital service for treatment of pulmonary embolism. Family was concerned that patient would be put on a heparin drip they wanted Dr. Calero' s approval. Therefore, Willard Melendez discussed the case with patient's warp drawer Dr. Calero at [facility] in [place]. He agreed with the plan to heparinize patient had an admit her for the pulmonary embolism. He requested that the patient have bilateral ultrasounds of the lower extremities and asked that the patient follow-up with him. Patient was then admitted to the hospitalist service for further evaluation and treatment. Review of Systems: General: Patient is in no apparent distress and has no chest pain at present time. HEENT: Patient has no headache, patient has no diplopia, patient has had bilateral cataract surgery and bilateral corneal transplants. She has to wear contacts on her left eye along with corrective lenses to both eyes to see properly.. Patient has no problems with their ears, nose or throat. Patient has had all of her upper teeth removed and she wears a full set of upper dentures. Patient had some of her lower teeth removed and wears a lower partial.. Patient has no pharyngitis or history of thrush. Neck: Patient has no stiffness in the neck. Patient has no lymphadenopathy at present time. However, she does have a history of lymphoma treated in 2009 was 6 months of chemotherapy under the direction of Dr. Trey Landon. Patient has no other problems with their neck. Pulmonary: Patient has no history of asthma or COPD. recently she has been coughing up green phlegm was diagnosed with "pneumonia" at [facility] and was sent home on levofloxacin. Her sputum is no longer green but she is still bringing up some sputum. He has been on levofloxacin for anywhere from 2-4 days her history does not appear to be consistent as far as how many doses of levofloxacin she has taken. Patient is less short of breath patient she was earlier today. Cardiovascular: Patient has a history of a small myocardial infarction in July prior to being transferred to [facility] and having 5 stents placed. She also has had a "murmur" for years. She was told by Dr. Calero that she needed to have an aortic valve replacement likely a TAVR, however she was not a good candidate due to her malnourished status. Patient had chest pressure today, similar to the pressure she had in July. However, this pressure was not near as bad. She no longer has any chest pressure. Gastrointestinal: Patient has no history of hepatitis A, B or C. Patient has no history of peptic ulcer disease. Patient has no history of gastroesophageal reflux disease. Patient has no history of nausea, vomiting, or diarrhea. Patient has no history of hematemesis, hematochezia, or melena. Patient has no history of colitis. Renal: Patient has no history of kidney disease. No history of kidney stones. Genitourinary: Patient has no history of dysuria, frequency, or incontinence. Patient has no previous history of genitourinary problems. Musculoskeletal: Patient has a history of polymyositis. She is getting rehabilitation for that at this time. This was proven by muscle biopsy of her left bicep muscle years ago. Patient has no other muscular skeletal problems. Neurologic: Patient has no history of stroke, no history of seizure, no history of TIA. Psychiatric: Patient has no history of psychiatric problems. Hematology/oncology: The patient had a history of lymphoma and was treated with chemotherapy for 6 months under the direction of Dr. Trey Landon. The remainder of the entire review of systems was reviewed with patient and is as mentioned above otherwise negative. Allergies Coded Allergies: TAPE (Verified Allergy, Severe, RASH/BURN, 10/02/16) Penicillins (Verified Allergy, Unknown, hives, angioedema, 10/02/16) Home Medications Scheduled Ascorbic Acid (Vitamin C) 250 Mg Tab.chew 250 MG PO QAM Aspirin Chew (Aspirin Chew) 81 Mg Chew 81 MG PO QAM Atorvastatin (Lipitor) 20 Mg Tablet 20 MG PO HS Clopidogrel (Clopidogrel) 75 Mg Tablet 75 MG PO QAM Ferrous Sulfate (Ferrous Sulfate) 325 Mg Tablet 325 MG PO QAM Folic Acid (Folic Acid) 1 Mg Tablet 1 MG PO QAM Furosemide (Furosemide) 20 Mg Tab 60 MG PO QAM Insulin Glargine (Lantus U100 Insulin Vial) 100 Unit/Ml Vial 15 UNIT SUBQ QAM Insulin Human Lispro (HumaLOG U100 Insulin Vial) 100 Unit/Ml Unit 4 UNIT SUBQ TIDWM Check blood sugars before meals and at bedtime. Use correction factor only before meals. Blood Sugar Lispro Correction: <151, 0 units; 151-175, 1 unit; 176-200, 2 units; 201-225, 3 units; 226-250, 4 units; 251-275, 5 units; 276-300 , 6 units; 301-325, 7 units; 326-350, 8 units; 351-375, 9 units; 376-400, 10 units; >400, 12 units. L. Rhamnosus GG/Inulin (Culturelle Capsule) 10 Billion Cell-200 Mg Cap.sprink 1 EACH PO DAILY X 14 DAYS Levofloxacin (Levofloxacin) 500 Mg Tablet 500 MG PO DAILY X 7 DAYS Levothyroxine (Levothyroxine) 88 Mcg Tablet 88 MCG PO QAM Metoprolol Tartrate (Metoprolol Tartrate) 25 Mg Tablet 25 MG PO BID Multivit with Calcium,Iron,Min (Therapeutic M) 1 Each Tablet 1 EACH PO QAM Potassium Chloride ER (Potassium Chloride ER) 20 Meq Tablet.er 20 MEQ PO DAILYWM TAKE WITH FOOD Warfarin Sodium (Warfarin Sodium) 2.5 Mg Tablet 2.5 MG PO QPM Scheduled PRN Acetaminophen (Acetaminophen) 325 Mg Tablet 650 MG PO Q6H PRN PRN For Fever Bisacodyl (Dulcolax Rectal) 10 Mg Supp.rect 10 MG RC DAILY PRN PRN For Constipation NO BOWEL MOVEMENT 8 HRS POST MOM Calcium Carbonate (Tums) 500 Mg Tab.chew 500 MG PO Q8H PRN PRN For Dyspepsia or Heartburn Docusate Sodium (Colace) 100 Mg Capsule 100 MG PO DAILY PRN PRN For Constipation Hydroxyzine Pamoate (HydrOXYzine Pamoate) 25 Mg Capsule 25 MG PO HS PRN PRN For Insomnia Ipratropium/Albuterol Sulfate (Iprat-Albut 0.5-3(2.5) mg/3 mL Inhalant Soln) 3 Ml Ampul.neb 3 ML IH Q6 PRN PRN For Shortness of Breath Magnesium Hydroxide (Milk of Magnesia) 400 Mg/5 Ml Oral.susp 30 ML PO DAILY PRN PRN For Constipation 1ST LINE FOR NO BOWEL MOVEMENT IN 72 HRS Melatonin (Melatonin) 5 Mg Tablet 5 MG PO HS PRN PRN Insomnia Na Phos,M-B/Na Phos,Di-Ba (Fleet Enema) 133 Ml Enema 133 ML RC DAILY PRN PRN For Constipation NO BOWEL MOVEMENT 8 HRS POST DULCOLAX SUPP Nitroglycerin SL (Nitroglycerin SL) 0.4 Mg Tab.subl 0.4 MG SL Q5MIN PRN PRN For Chest Pain Ondansetron (Ondansetron) 4 Mg Tablet 4 MG PO Q6H PRN PRN For Nausea/Vomiting Polyethylene Glycol 3350 (Polyethylene Glycol 3350) 17 Gm Powd.pack 17 GM PO DAILY PRN PRN For Constipation diphenhydrAMINE HCl (Unisom Sleepmelts) 25 Mg Tab.rapdis 25 MG PO Q6H PRN PRN For Itching PMH Polymyositis diagnosed by left biceps muscle biopsy approximately 15 years ago History of lymphoma in 2008 treated for 6 months with chemotherapy under the direction of Dr. Landon. Atrial fibrillation diagnosed in July 2016. Patient was given anticoagulation with Coumadin until she had her 5 stents and at some point she converted to normal sinus rhythm and was taken off Coumadin. 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 Hypertension diagnosed approximately 10 years ago. History severe aortic stenosis. History of protein calorie malnutrition which prevented Dr. Calero from performing a TAVR along with the 5 stents as he did not think patient would tolerate it. Surgical History Cholecystectomy years ago Bilateral cataract surgery Bilateral corneal transplant Dental extraction of all upper teeth and part of her lower teeth Family History Patient's mother at 55 of leukemia Patient's father at 83 of heart disease Patient has 3 sisters one who has atrial fibrillation and aortic stenosis, one sister has atrial fibrillation, and one sister has rheumatoid arthritis. Patient has 1 brother who just had a pacemaker placed. Social History Hx Alcohol Use: No Hx Substance Use: No Hx Tobacco Use: No Smoking Status: Never Smoker Living Arrangement: Alone Additional Information She was born in [place] and went to [employer]. She graduated in 1. She has been a Christianity on her life. She has never and she is 0 para 0. 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 Exam Vital Signs Vital Sign - Last Date Time Temp Pulse Resp B/P Pulse Ox O2 Delivery O2 Flow Rate FiO2 10/02/16 20:36 36.6 77 18 156/83 98 Nasal Cannula 2.00 Exam General: Patient is lying supine in bed without elevated' 45 in no apparent distress. HEENT: Head is atraumatic and normocephalic. Eyes: Pupils are equally round and reactive to light and accommodation. Extraocular muscles are intact. Sclera are white, anicteric. Subconjunctival mucosa is pink. Ears and nose are unremarkable. Oropharynx: There is no mucosal lesions, there is no thrush, there is no pharyngitis. Neck: Is supple, there are no nodes, or masses or tenderness. Chest: Is significant for bibasilar rales left greater than right, along with some rhonchi. There is a well-healed scar in the left upper chest were no old port was in place for her chemotherapy. Heart: Rate, rhythm is regular. There is a 3/6 loud systolic ejection murmur heard best at the left sternal border radiating to the base. Abdomen: Good bowel sounds are present. Abdomen is soft, nontender, no organomegaly or masses were appreciated. Extremities: Are symmetrical and well perfused. There is minimal edema, there is no cellulitis, no rash. Neurologic: There are no focal neurological deficits. Cranial nerves II through XII are intact. There are no sensory or motor deficits. Patient has proximal muscle weakness Psychiatric: Patients mood is calm and shows no sign of agitation. Genital: Deferred Rectal: Deferred Lab and Diagnostics Result Diagram: 10/02/16 1200 10/02/16 1200 X-Rays, CTs and MRIs PROCEDURE: CT ANGIO CHEST PULMONARY EMBOLISM ([id number]) INDICATIONS: chest pain, elevated ddimer 1.2 TECHNIQUE: After the administration of intravenous contrast, 2 mm thick sections acquired from the pulmonary apices to the posterior costophrenic angles. 3-dimensional maximum intensity projection (MIP) coronal and sagittal reformats were then acquired through the thorax. For radiation dose reduction, the following was used: automated exposure control, adjustment of mA and/or kV according to patient size. COMPARISON: None. FINDINGS: Image quality: Excellent. Pulmonary arteries: Main pulmonary arterial trunk is not enlarged. However, there is slight prominence of the right and left pulmonary arteries. Filling defects are seen within the distal aspect of the right main pulmonary arterial trunk. There are small intraluminal filling defects noted within the right lower lobe and possibly involving the left lower lobe within the pulmonary arteries in these regions. No large pulmonary embolus is evident. Lungs and pleura: Extensive bronchial wall thickening is noted within the bilateral lower lobes. There is tree in the nodularity noted within the lower lobes (record and left) with areas of groundglass attenuation and moderate consolidation. Additional areas of groundglass attenuation throughout the remainder of the lungs is identified, which may be related to expiratory technique. There is no large effusion or pneumothorax. No lung masses appreciated. Evaluation for pulmonary nodules is limited on this examination. Debris is noted within the right lower lobe bronchi. Mediastinum: Heart size is normal, with a small pericardial effusion. Thoracic aorta is normal in caliber and enhancement. Esophagus is normal in caliber, without hiatal hernia. No mediastinal mass is evident. However, there is extensive mediastinal and hilar lymph nodes (right hilar greater than left). The largest mediastinal lymph node measures at least 1.5 cm in short axis and is located within the aortopulmonary window. Confluent prominent lymph nodes within the subcarinal region and right infrahilar region are noted. Bones and chest wall: No suspicious bony lesions. Ribs and thoracic spine appear intact throughout. Thyroid gland is mildly heterogeneous with probable bilateral inferior thyroid nodules. No axillary or supraclavicular adenopathy. Abdomen: The included portions of the upper abdomen demonstrates the spleen to be slightly prominent in size. Cholecystectomy changes of the liver are noted. Non-masslike enlargement of the bilateral adrenal glands is present. There are small upper mediastinal lymph nodes with the largest located within the region of the lesser sac, measuring up to 10 mm in short axis (image 126, series 6). Approximately 50% narrowing involving the superior mesenteric artery is present related to atherosclerotic changes. IMPRESSION: 1. Small pulmonary emboli within the right lower lobe pulmonary arteries. 2. Bibasilar pneumonia. The possibility of superimposed aspiration is difficult to exclude. 3. Prominent mediastinal lymph nodes are likely reactive. A followup CT of the chest is recommended in approximately 3 months to reevaluate these nodes. 4. Cardiomegaly. 5. 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 6. Probable inferior thyroid nodules. Dedicated thyroid ultrasound would be helpful for better characterization a nonemergent basis. Note: Impressions 1-3 were discussed with Hakeem Balbuena at 1427 hours ([facility] ) on 10/02/2016. Dictated by: Ibrahima Case M.D. on 10/02/2016 at 14:18 Approved by: Ibrahima Case M.D. on 10/02/2016 at 14:31 PROCEDURE: X-RAY CHEST ONE VIEW, PORTABLE ([id number]) INDICATIONS: SHORTNESS OF BREATH TECHNIQUE: One view of the chest was acquired. COMPARISON: [facility], CR, XR CHEST 1VW (PORTABLE), 07/29/2016, 10: 41. FINDINGS: Surgical changes and devices: None. Lungs and pleura: Elevation of the right diaphragm is similar to the previous exam. Otherwise, the aeration of the lungs has improved in the interim. No definite consolidation, effusion, or pneumothorax is evident. There may be mild left basilar atelectasis. Mediastinum: Mediastinal contours appear normal. Heart size is normal. There is aortic atherosclerosis. Bones and chest wall: No suspicious bony lesions. Overlying soft tissues appear unremarkable. IMPRESSION: Improved aeration of the lungs with residual right diaphragmatic elevation and probable scarring/atelectasis at the left lung base. Superimposed left basilar pneumonia cannot be excluded. Dictated by: Ibrahima Case M.D. on 10/02/2016 at 10:34 Approved by: Ibrahima Case M.D. on 10/02/2016 at 10:35 Assessment & Plan The patient is a pleasant 71-year-old white female Christianity with history of presenting to [facility] in July with diagnosis of atrial fibrillation, congestive heart failure, anasarca and myocardial infarction. Patient for 2 days had fluid removed and due to her children as witness leaves patient was transferred to [facility] on August 08 and was cared for by Dr. Calero who plays 5 coronary stents. Patient was told that she also needed to have a TAVR however she was too malnourished to undergo the procedure after just having 5 stents placed. Patient was then sent to [facility] in [place]. Patient has resided there since. 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 Patient has a follow- up appointment with Dr. Calero on Thursday. Approximate 4 days prior to this admission she developed cough for the per Dr. larson of green sputum. Patient went to [facility] and was diagnosed with pneumonia and was placed on levofloxacin. She states she has been taking the levofloxacin for at least 2 days. Today she reported that she had heaviness in her chest which was progressively worse she is noted to have a low oxygen saturation at the [facility] and the staff there called 911. The patient was brought to [facility] emergency room for evaluation and treatment. Patient was evaluated by Willard Melendez PA-C and Dr. Hakeem Balbuena. Patient had a chest x- ray which showed improved aeration lungs with residual right diaphragmatic elevation and probable scarring/atelectasis of the left lung base. Superimposed left basilar pneumonia cannot be excluded. He was found to have a pro B-type natriuretic peptide of 18,427 she also was found to have an elevated troponin of 0.193. CT scan with angiogram of the chest showed small pulmonary emboli within the right lower lobe pulmonary arteries. Bibasilar pneumonia. The possibility of superimposed aspiration is difficult to exclude. Prominent mediastinal lymph nodes are likely reactive. A followup CT of the chest is recommended in approximately 3 months to reevaluate these nodes. Cardiomegaly. 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 Probable inferior thyroid nodules. Dedicated thyroid ultrasound would be helpful for better characterization a nonemergent basis. Dr. Waldo Blancas was called by Willard Melendez PA-C and he reviewed the chart and the patient's EKG. He did not find the EKG concerning. He felt that the patient should be admitted to the hospital service for treatment of pulmonary embolism. Family was concerned that patient would be put on a heparin drip they wanted Dr. Calero' s approval. Therefore, Willard Melendez discussed the case with patient's warp drawer Dr. Calero at [facility] in [place]. He agreed with the plan to heparinize patient had an admit her for the pulmonary embolism. He requested that the patient have bilateral ultrasounds of the lower extremities and asked that the patient follow-up with him. Patient was then admitted to the hospitalist service for further evaluation and treatment. # Chest pain or shortness of breath, present on admission. Improved - Patient has known coronary artery disease and just had 5 stents placed in July 2016. Therefore, with positive troponins patient certainly could be having a non-ST elevated myocardial infarction. Dr. Waldo Blancas was consulted from the emergency room and reviewed the case and the EKG and felt that the patient should be admitted to the hospital service for treatment of her pulmonary embolism - Pulmonary embolism as described above on CT scan could certainly be a cause for the patient's chest pressure. However, patient states that the chest pressure is similar to the chest pressure she experienced back in July when she required 5 stents.. - We will continue the heparin drip which Dr. Calero has agreed with and this will provide effective anticoagulation for pulmonary emboli and non-ST elevated myocardial infarction. # Non-ST elevated myocardial infarction with positive troponins, present on admission. - We will consult cardiology. Dr. Waldo Blancas hazard even contacted. - We will trend troponins. - We will continue with heparin drip. - We will continue patient's home Plavix, aspirin and atorvastatin # Small pulmonary emboli within the right lower lobe pulmonary arteries. - Suspect patient may have a hypercoagulable state due to her history of lymphoma and has recently been more sedentary at the rehabilitation center. - Continue heparin drip - Start Coumadin per pharmacy dosing. - Consider subcutaneous fullness Lovenox as bridging therapy. # Insulin-dependent diabetes mellitus - Continue his home insulin regimen - Sliding-scale insulin coverage after Accu-Cheks before meals and at bedtime. # Bilateral lower lobe pneumonia - Patient has been being treated with levofloxacin with some symptomatic improvement decrease sputum and production etc. - For now will continue vancomycin levofloxacin and cefepime started in the emergency room. - We will check nasal swab for MRSA screen - We will de-escalate antibiotics when appropriate. # Polymyositis - We will consult physical and occupational therapies once patient is more stable. # History of hypertension - Continue home medications - We will monitor closely # History of valvular disease in need of repair - Based on physical exam findings and what history I could obtain from the patient and her sister and her niece sounds like patient has severe aortic stenosis. - As patient may be developing symptoms and related to severe aortic stenosis the next treatment option would be TAVR. Disposition: Patient will likely be her more than 2 midnights and therefore was admitted as an inpatient. Discussed with patient and patient's sister and patient's niece cannot"Angelique" and they agree with the above plan. Pain Evaluation: Adequate Pain Control GI Prophylaxis: Proton Pump Inhibitor VTE Prophylaxis: Other (therapeutic anticoagulation with a heparin drip) Resuscitation Status: CPR: Attempt Resuscitation Kj Roth MD Oct 02, 2016 22:10
--- NOTE | 2016-10-02 22:37 | PCM.CONPHA ---
Assessment/Plan Assessment/Plan ANTICOAGULATION MANAGEMENT BY PHARMACY -INDICATION: AFIB -HOME DOSE: 5 MG DAILY, but has not been taking for past few months -CONCURRENT ANTICOAGULATION: HEPARIN GTT -CRCL: 69 ML/MIN -COAG TRENDS: INR 1.10 INR change ~ Warf Dose 5 MG -[id number] SCORE: 4 PLAN: According to patient and care notes she was at high risk for bleed so mule driver told her to stop taking Warfarin for the past few months. Current INR is at 1.10 and per attending will restart Warfarin. She will be receiving a OT dose tonight of her old home dose of 5 mg. Serial INRs have been ordered Pharmacy appreciates consult and will continue to monitor. THANKS! Bebe Ruiz PharmD Oct 02, 2016 22:37
[2016-10-02 22:45] LABS: TROPONIN T 0.205 ug/L (0.0-0.011)
[2016-10-03] VITALS (7 sets, daily range): BP systolic 147–181; BP diastolic 73–88; PULSE 60–85; RESP 16–20; O2SAT 94–98
[2016-10-03] MEDS: Sodium Chloride LOK Flush 10 mL Syringe IVFLUSH SCH ×3 (00:38→16:30)
[2016-10-03] MEDS: Insulin Human REGular 300 Unit/3 mL Inj SUBQ SCH ×2 (02:30→08:26)
--- NOTE | 2016-10-03 05:54 | NUR ---
Diet against advice Pt arrived to floor very hungry and requesting food. Pt was informed the Md was concerned about her ability to swallow safely and that there was risk that she may aspirate. Pt A/Ox3 and voiced her understanding of risk but felt her ability to swallow was unchanged and that she uses a soft diet at home. Pt signed diet against medical advice form and has had no notable difficulty eating food or swallowing thin liquids so far.
[2016-10-03] MEDS ORDERED: Vancomycin Inj 1,000 MG in IV Premix 1 EACH IV SCH (06:00)
[2016-10-03 06:50] LABS: BASOPHILS % (AUTO) 1.2 % (0-3); EOSINOPHILS % (AUTO) 4.4 % (0-5); MONOCYTES % (AUTO) 8.5 % (4-12); Mean Corpuscular Hemoglobin 28.6 pg (27.0-35.0); Mean Corpuscular Volume 88.8 fL (81-100); NEUTROPHILS % (AUTO) 66.2 % (40-74); Platelet Count 311 bil/L (150-400)
[2016-10-03 06:59] LABS: INR 1.12 ratio
[2016-10-03 07:55] LABS: ERYTHROCYTE SEDIMENTATION RATE 60 mm/hr (0-40)
[2016-10-03] MEDS ORDERED: Insulin LISPRO 300 Unit/3 mL Inj SUBQ SCH (08:00)
[2016-10-03] MEDS: Multivit-Miner-Folic Acid-Iron Tablet PO SCH (08:27)
[2016-10-03] MEDS: Ascorbic Acid 500 mg Tablet PO SCH (08:27)
[2016-10-03] MEDS: Potassium Chloride 20 mEq SR Tablet PO SCH (08:28)
[2016-10-03] MEDS: Pantoprazole 40 mg ER24 Tablet PO SCH (08:28)
[2016-10-03] MEDS ORDERED: Cefepime Inj 2 GM in IV Premix 1 EACH IV SCH (08:30)
[2016-10-03] MEDS: Lactobacillus Rhamnosus 10 Bil Unit Capsule PO SCH (08:30)
[2016-10-03] MEDS: Vancomycin Dose per Pharmacist XX SCH (08:30)
[2016-10-03] MEDS: Insulin GLARgine 100 Unit/mL Syringe SUBQ SCH (08:31)
[2016-10-03 08:49] LABS: Magnesium 2.1 mg/dL (1.6-2.6)
--- NOTE | 2016-10-03 08:54 | DRSVH ---
PROCEDURE: US VENOUS LEG DUPLEX BILATERAL INDICATIONS: PE/possible DVT TECHNIQUE: Real-time imaging, as well as color and pulse Doppler interrogation, were performed of the deep veins of both legs from the inguinal ligament to the popliteal fossa. COMPARISON: None. FINDINGS: The deep veins are normally compressible, and free of intraluminal thrombus. Color and pu lse Doppler demonstrate normal phasic intravascular flow. There is normal augmentation response to d istal compression maneuver. IMPRESSION: No deep venous thrombosis identified within either the left or right lower extremities. Dictated by: Hussein PADILLA Interpreted: Armida Moon MD on 10/03/2016 at 8:54 Transcribed by: OMI on 10/03/2016 at 8:54 Approved by: Armida Moon M.D. on 10/03/2016 at 16:01
--- NOTE | 2016-10-03 10:20 | NUR ---
Evaluation completed. Please go to "Notes" then click on "Assessments and Notes" (bottom left corner of screen). Then select appropriate discipline tab on top of screen.
--- NOTE | 2016-10-03 11:14 | NUR ---
NUTRITION ASSESSMENT: ASSESS: 71YO F admit with pulmonary emboli, pneumonia. Per ST notes pt with 30lb weight loss (unspecified time frame) 2/2 swallowing difficulty due to ill fitting dentures. Pt had signed diet against medical advice yesterday, however today agrees to ST eval and trial of modified diet texture per recommendations. ST f/u tomorrow re adequate po intake on modified texture. PMHX: DM, HTN,lymphoma, Afib, pro-norma malnutrition per MD notes LABS: Reviewed Glu 166, A1c 6.9 MEDS: Reviewed. Insulin GI: No BM reported yet. CURRENT WTS: 72.6kg, BMI 26.0 = Overweight. Wt loss of 30lb noted. DIET: Soft. No po recorded EST. NEEDS: Kcals: [id number] kcal/day (25-30 kcal/kg BW) Pro: 70-90 g/day (1.0-1.2 g/kg BW) NUTRITION DIAGNOSIS: 1.) Inadequate oral intake related to swallowing difficulty as evidence by reported 30lb weight loss. 2.) Chewing / swallowing difficulties related to ill fitting dentures as evidenced by current need for mechanically altered diet texture. NUTRITION INTERVENTION: 1.) Will send Glucerna TID on trays to encourage increased po intake. 2.) Continue diet per recommendations. MONITOR / EVAL: PO intake, ST eval, weight, labs, nutrition status. Will continue to monitor per high nutrition risk guidelines
--- NOTE | 2016-10-03 11:15 | PCM.PHAPRO ---
Progress Chest pressure and shortness of breath WARFARIN DOSING PER PHARMACY [facility] Date Oct 03-Sep INR 1.10 1.12 INR change 0.02 Warf Dose 5 MG 5 MG -Subtherapeutic INR following restart of warfarin after months of no therapy due to increased bleeding risk. So signs of bleed currently documented. -Will dose 5mg tonight. Pharmacy will continue to monitor. Clifton Bermudez, PharmD Clifton Bermudez Oct 03, 2016 11:15
--- NOTE | 2016-10-03 11:15 | DRSVH ---
PROCEDURE: X-RAY CHEST ONE VIEW, PORTABLE ([id number]) INDICATIONS: Follow up for Pneumonia TECHNIQUE: One view of the chest was acquired. COMPARISON: [facility], CR, XR CHEST 1VW (PORTABLE), 10/02/2016, 11:09. FINDINGS: Surgical changes and devices: None. Lungs and pleura: No pleural effusions or pneumothorax. Elevation right hemidiaphragm and persisten t basilar airspace opacities present Mediastinum: Mediastinal contours appear normal. Heart size is normal. Bones and chest wall: No suspicious bony lesions. Overlying soft tissues appear unremarkable. IMPRESSION: Persistent bibasilar air space opacities consistent with pneumonia versus aspiration. Dictated by: Hussein Calvert RRA Interpreted: Armida Moon MD on 10/03/2016 at 11:12 Transcribed by: OMI on 10/03/2016 at 11:14 Approved by: Armida Moon M.D. on 10/03/2016 at 15:48
--- NOTE | 2016-10-03 11:36 | PCM.PHAPRO ---
Progress Chest pressure and shortness of breath VANCOMYCIN DOSING PER PHARMACY DX: HCAP Vancomycin dose: 1,000mg Q12h Other ABX: Cefepime SCr: 0.7 (10/03) Wt: 72.6kg A/P -Current vanc dose equates to roughly 13.7mg/kg. Renal fx stable. -Will retime trough for 10/04@1730 prior to 4th scheduled dose. -Pharmacy will continue to monitor -Clifton Bermudez, Pharm.D Clifton Bermudez Oct 03, 2016 11:36
[2016-10-03] MEDS: Insulin LISPRO Low-Dose Scale SUBQ SCH ×3 (11:37→21:28)
--- NOTE | 2016-10-03 13:01 | NUR ---
PSVT Patient had 3 runs of PSVT per sound recording technician. Patient had one 10 second run in the 130's, one 7 second run in the 150's and one 5.61 second run. Patient remained asymptomatic and MD was notified.
--- NOTE | 2016-10-03 14:37 | NUR ---
took over patient care [id number]
--- NOTE | 2016-10-03 16:17 | NUR ---
Social Work: Initial Assessment Data: Pt is a 71 y/o female admitted for PE, pneumonia. Pt's PCP is Dr Santacruz, pt's insurance is Medicare with [employer]. EMR reviewed. No readmit score is listed. [employer] HISTORY PROFESSOR met with pt and sisters at bedside. Pt states she is at [facility] for rehab. She states that she has a home in [place] where she lives alone, she has a power chair, four wheeled walker, and grab bars in her home. Pt states she drives, has no LTC or VA benefits. PT recommending SNF, pt agreeable to go back to [facility]. S[employer] HISTORY PROFESSOR called [facility], they can accept pt back at d/c. S[employer] HISTORY PROFESSOR will continue to follow. Assessment: Pt who is independent at baseline, from SNF for rehab. Plan: Pt will d/c back to [facility] when medically stable. S[employer] HISTORY PROFESSOR will continue to follow. JAN Fraser Addendum: 10/03/16 at 1621 by MELISSA MARK Amended: Links added.
--- NOTE | 2016-10-03 18:20 | NUR ---
Supplemental O2 Patient was on 2L supplemental O2. Patient Removed supplemental O2 and saturations were at 96% on RA. With exertion Oxygen saturations went to 90. Patient was placed back on O2 for PT due to exertion. Patient then removed supplemental oxygen again while in bed with saturations at 93%.
--- NOTE | 2016-10-03 18:43 | CONS ---
[address] [address] CONSULTATION REPORT PATIENT: BERTHA NGUYEN : 1945 MR#: [id number] ADMIT: 10/02/2016 JOB ID: [id number] DATE OF SERVICE: 10/03/[address] Duarte Roth for this consultation. REASON FOR CONSULTATION: Bilateral pulmonary infiltrates in a complex patient. HISTORY OF THE PRESENT ILLNESS: The patient is a 71-year-old woman with longstanding medical problems including diabetes mellitus with neuropathy, polymyositis, tight aortic stenosis with pulmonary edema and a history of treated lymphoma. The patient was evaluated here in July and sent to [facility] where multiple coronary stents were placed. There was a discussion at [facility] about whether or not to perform a TAVR procedure for her tight aortic stenosis but she was deemed to be too chronically ill to undergo the procedure at that time, and she was sent to [facility] in [place] for rehab and generalized strengthening before aortic valve surgery. On or about September 28, while at [facility] in [place], she developed some increasing shortness of breath. Interestingly, the patient says this was not accompanied by any significant sputum production and certainly not by fevers, chills or sweats. She was evaluated at the hospital in [place] and given levo orally and sent back to [facility]. Unfortunately, her shortness of breath worsened and so last night she was sent here emergently for increasing shortness of breath. Again, she did not noted any fevers, chills, or sweats and had some raspy cough but without any overt sputum production or pleuritic chest pain. Upon arrival here, she had a CT scan of the chest, which showed a small pulmonary emboli, as well as bilateral lower lobe infiltrates and a tree-in-bud appearance. Because of concerns about possible healthcare associated pneumonia, she was started on vancomycin, cefepime, and continued on levo by the intravenous route. She was also started on anticoagulants as indicated by the presence of a pulmonary emboli. This afternoon the patient tells us she continues to be somewhat short of breath with a raspy cough but again no sputum production and certainly no hemoptysis. She does not have fevers, chills or sweats and denies sore throat. She has no pleuritic chest pain. She notes she is short of breath and that the shortness of breath is worse with exertion. No GI symptoms or genitourinary symptoms are noted except for constipation. PAST MEDICAL HISTORY: 1. Diabetes mellitus with neuropathy. 2. Polymyositis. 3. Organic heart disease. a. AFib. b. Coronary artery disease, status post multiple stents. c. Tight aortic stenosis with some degree of aortic regurgitation on last echo. d. Congestive heart failure. e. History of anasarca. 4. Hypertension. 5. Pulmonary embolism diagnosed yesterday. 6. History of treated lymphoma. SOCIAL HISTORY: The patient has never . Has no children and lives by herself in the [facility]. 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 She does not smoke or drink. TRAVEL HISTORY: Includes distant travel to [place] and the [place] but not in the last decade. FAMILY HISTORY: Negative for tuberculosis in first and second-degree relatives. REVIEW OF SYSTEMS: Was done. The patient states she has no current headaches. She has chronic visual problems which are not worse acutely, but she has had a great deal of eye issues over the years and multiple procedures. She denies sore throat or trouble swallowing. Denies stiff neck. Pulmonary symptoms as stated above. She is not currently having substernal chest pain. She has no nausea or vomiting. She does report constipation which is a chronic problem and she sometimes has to manually disimpact herself. She is quite weak in her extremities which she attributes to longstanding polymyositis with ongoing myalgias and weakness in both arms and both legs. She does not have any joint complaints. Interestingly she notes her feet are quite numb. Remainder of the review of systems is negative. PHYSICAL EXAMINATION: Reveals an afebrile, thin elderly woman. Temperature 36.8. She has been afebrile since admission yesterday, about 24 hours ago. Temp now 36.8, pulse 60, respiratory rate 16, blood pressure 159/88. She is saturating quite well on room air. Her mental status is clear. Head without trauma, though there is some temporal wasting. Eyes without conjunctivitis. Oral cavity without thrush or pharyngitis. Neck supple. There is prominent jugular venous distention noted. No adenopathy appreciated in the neck. Lungs sound very coarse with diffuse rales, rhonchi, and poor air flow which is worse as you get lower in the lung parks but bad everywhere. Cardiac tones with a loud, at least 3/6 holosystolic murmur, loudest in the right upper region but heard across the precordium. There is also a 1/6 to 2/6 diastolic murmur in the same distribution. Abdomen: Soft, nontender. No organomegaly. No ascites. She does not have a Qureshi catheter or suprapubic tenderness. Joints without synovitis. Muscles are not erythematous but they are mildly tender to palpation in the larger muscle groups. Lower extremities are without edema or any evidence of anasarca at this point. There is no cellulitis present and her feet have reduced sensation to touch. LABORATORIES: Include white count normal, 4800. Completely normal diff. Sedimentation rate 60, likely explained by her polymyositis. Creatinine 0.7. BNP is now 20,000 and was 18,000+ yesterday. Liver function tests totally normal. First procalcitonin is less than 0.1. A repeat is pending. Urinalysis without white cells. Urine Legionella and pneumococcal antigens are negative. Urine culture is negative. MRSA screen negative. We carefully reviewed the CT angiogram of the chest that was done yesterday. It did reveal the pulmonary emboli. In terms of the lung parenchyma, there are tree-in-bud type infiltrates noted in the lower lobes especially with some ground-glass attenuation. IMPRESSION: It is difficult to say in this complex woman whether or not her shortness of breath over the past five or six days is due primarily to congestive heart failure, which is a known diagnosis, pulmonary embolism, which is a diagnosis just made yesterday by the CT angiogram or some superimposed infectious process. Her complete absence of fever, leukocytosis, and negative procalcitonin all argue fairly strongly against a bacterial process as does her overall clinical appearance. It is difficult of course with antibiotic pretreatment over the past few days to say with certainty. that she does not have pneumonia as our cultures might be expected to be rendered negative by this point, but I would think that if she has had an infection, she is nearing the tail end of it and antibiotics can be de-escalated rather than increased. She was started in the ED on vancomycin, cefepime and continued on levofloxacin though on even higher doses than she was receiving as an outpatient. This case discussed in detail with Dr. Roth, who is the consulting hospitalist. RECOMMENDATIONS: 1. I would drop the vanco now as we have a negative MRSA screen. 2. Will order a procalcitonin to be done stat this afternoon as well as respiratory viral panel. 3. If the procalcitonin is again low I think we could reasonably stop the cefepime tomorrow morning and consider discharging the patient back to [facility] on oral levofloxacin to finish a total seven day course. Note that she is probably already approaching the seven days overall duration in any event. 4. Thank you very much for this very interesting consult.
--- NOTE | 2016-10-03 21:29 | NUR ---
heparin gtt / lovenox Dr Roth called. Lovenox ordered (per emar start at 2200) per Dr Roth, discontinue heparin infusion and administer Lovenox within 30 minutes. awaiting lovenox from pharmacy. plan to turn off heparin, and administer lovenox as ordered. care ongoing.
--- NOTE | 2016-10-03 22:34 | NUR ---
heparin stopped heparin stopped as ordered plan to administer lovenox as ordered discussed with patient. no questions Addendum: 10/03/16 at 2240 by JOSE ALEJANDRO RENTERIA RN clarification: plan to administer lovenox at 2310 ; 30 min after heparin stopped as per Dr Riley telephone clarficiation see note documented.
--- NOTE | 2016-10-03 23:42 | PCM.PNMED ---
Subjective Date of Service Oct 03, 2016 Subjective Patient is beginning to feel better. She has no chest pain today and no chest pressure today. She is less short of breath today. She has no new complaints. Exam Vital Signs Vital Sign - Last Date Time Temp Pulse Resp B/P Pulse Ox O2 Delivery O2 Flow Rate FiO2 10/03/16 20:11 36.7 85 18 160/85 95 Room Air 10/03/16 05:49 2.00 Intake and Output 10/02/16 10/02/16 10/03/16 Cumulative From/Thru 15:00 23:00 07:00 10/02/16 11:06 - 10/03/16 06:39 Intake Total 503 ml 503 ml Balance 503 ml 503 ml Intake Oral 200 ml 200 ml IV Total 303 ml 303 ml # Voids 3 3 # Bowel Movements 0 0 Exam General: Patient is lying supine in bed with head elevated' 45. She is in no apparent distress. HEENT: Head is atraumatic and normocephalic. Eyes: Pupils are equally round and reactive to light and accommodation. Extraocular muscles are intact. Sclera are white, anicteric. Subconjunctival mucosa is pink. Ears and nose are unremarkable. Oropharynx: There is no mucosal lesions, there is no thrush, there is no pharyngitis. Neck: Is supple, there are no nodes, or masses or tenderness. Chest: Is significant for bibasilar rales left greater than right, along with some rhonchi. There is a well-healed scar in the left upper chest were no old port was in place for her chemotherapy. Heart: Rate, rhythm is regular. There is a 3/6 loud systolic ejection murmur heard best at the left sternal border radiating to the base. Abdomen: Good bowel sounds are present. Abdomen is soft, nontender, no organomegaly or masses were appreciated. Extremities: Are symmetrical and well perfused. There is minimal edema, there is no cellulitis, no rash. Neurologic: There are no focal neurological deficits. Cranial nerves II through XII are intact. There are no sensory or motor deficits. Patient has proximal muscle weakness Psychiatric: Patients mood is calm and shows no sign of agitation. Genital: Deferred Rectal: Deferred Lab and Diagnostics Result Diagram: 10/03/1620 10/03/16619 Microbiology Respiratory viral PCR panel is negative. Strep pneumonia urinary antigen is negative. An MRSA screen is negative. X-Rays, CTs and MRIs PROCEDURE: CT ANGIO CHEST PULMONARY EMBOLISM ([id number]) INDICATIONS: chest pain, elevated ddimer 1.2 TECHNIQUE: After the administration of intravenous contrast, 2 mm thick sections acquired from the pulmonary apices to the posterior costophrenic angles. 3-dimensional maximum intensity projection (MIP) coronal and sagittal reformats were then acquired through the thorax. For radiation dose reduction, the following was used: automated exposure control, adjustment of mA and/or kV according to patient size. COMPARISON: None. FINDINGS: Image quality: Excellent. Pulmonary arteries: Main pulmonary arterial trunk is not enlarged. However, there is slight prominence of the right and left pulmonary arteries. Filling defects are seen within the distal aspect of the right main pulmonary arterial trunk. There are small intraluminal filling defects noted within the right lower lobe and possibly involving the left lower lobe within the pulmonary arteries in these regions. No large pulmonary embolus is evident. Lungs and pleura: Extensive bronchial wall thickening is noted within the bilateral lower lobes. There is tree in the nodularity noted within the lower lobes (record and left) with areas of groundglass attenuation and moderate consolidation. Additional areas of groundglass attenuation throughout the remainder of the lungs is identified, which may be related to expiratory technique. There is no large effusion or pneumothorax. No lung masses appreciated. Evaluation for pulmonary nodules is limited on this examination. Debris is noted within the right lower lobe bronchi. Mediastinum: Heart size is normal, with a small pericardial effusion. Thoracic aorta is normal in caliber and enhancement. Esophagus is normal in caliber, without hiatal hernia. No mediastinal mass is evident. However, there is extensive mediastinal and hilar lymph nodes (right hilar greater than left). The largest mediastinal lymph node measures at least 1.5 cm in short axis and is located within the aortopulmonary window. Confluent prominent lymph nodes within the subcarinal region and right infrahilar region are noted. Bones and chest wall: No suspicious bony lesions. Ribs and thoracic spine appear intact throughout. Thyroid gland is mildly heterogeneous with probable bilateral inferior thyroid nodules. No axillary or supraclavicular adenopathy. Abdomen: The included portions of the upper abdomen demonstrates the spleen to be slightly prominent in size. Cholecystectomy changes of the liver are noted. Non-masslike enlargement of the bilateral adrenal glands is present. There are small upper mediastinal lymph nodes with the largest located within the region of the lesser sac, measuring up to 10 mm in short axis (image 126, series 6). Approximately 50% narrowing involving the superior mesenteric artery is present related to atherosclerotic changes. IMPRESSION: 1. Small pulmonary emboli within the right lower lobe pulmonary arteries. 2. Bibasilar pneumonia. The possibility of superimposed aspiration is difficult to exclude. 3. Prominent mediastinal lymph nodes are likely reactive. A followup CT of the chest is recommended in approximately 3 months to reevaluate these nodes. 4. Cardiomegaly. 5. 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 6. Probable inferior thyroid nodules. Dedicated thyroid ultrasound would be helpful for better characterization a nonemergent basis. Note: Impressions 1-3 were discussed with Hakeem Balbuena at 1427 hours ([facility] ) on 10/02/2016. Dictated by: Ibrahima Case M.D. on 10/02/2016 at 14:18 Approved by: Ibrahima Case M.D. on 10/02/2016 at 14:31 PROCEDURE: X-RAY CHEST ONE VIEW, PORTABLE ([id number]) INDICATIONS: SHORTNESS OF BREATH TECHNIQUE: One view of the chest was acquired. COMPARISON: [facility], CR, XR CHEST 1VW (PORTABLE), 07/29/2016, 10: 41. FINDINGS: Surgical changes and devices: None. Lungs and pleura: Elevation of the right diaphragm is similar to the previous exam. Otherwise, the aeration of the lungs has improved in the interim. No definite consolidation, effusion, or pneumothorax is evident. There may be mild left basilar atelectasis. Mediastinum: Mediastinal contours appear normal. Heart size is normal. There is aortic atherosclerosis. Bones and chest wall: No suspicious bony lesions. Overlying soft tissues appear unremarkable. IMPRESSION: Improved aeration of the lungs with residual right diaphragmatic elevation and probable scarring/atelectasis at the left lung base. Superimposed left basilar pneumonia cannot be excluded. Dictated by: Ibrahima Case M.D. on 10/02/2016 at 10:34 Approved by: Ibrahima Case M.D. on 10/02/2016 at 10:35 Cardiac Echo Impressions Pending Assessment & Plan The patient is a pleasant 71-year-old white female [place] with history of presenting to [facility] in July with diagnosis of atrial fibrillation, congestive heart failure, anasarca and myocardial infarction. Patient for 2 days had fluid removed and due to her children as witness leaves patient was transferred to [facility] on August 08 and was cared for by Dr. Calero who plays 5 coronary stents. Patient was told that she also needed to have a TAVR however she was too malnourished to undergo the procedure after just having 5 stents placed. Patient was then sent to [facility] in [place]. Patient has resided there since. 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 Patient has a follow- up appointment with Dr. Calero on Thursday. Approximate 4 days prior to this admission she developed cough for the per DrRonnell larson of green sputum. Patient went to [facility] and was diagnosed with pneumonia and was placed on levofloxacin. She states she has been taking the levofloxacin for at least 2 days. Today she reported that she had heaviness in her chest which was progressively worse she is noted to have a low oxygen saturation at the [facility] and the staff there called 911. The patient was brought to [facility] emergency room for evaluation and treatment. Patient was evaluated by Willard Melendez PA-C and Dr. Hakeem Balbuena. Patient had a chest x- ray which showed improved aeration lungs with residual right diaphragmatic elevation and probable scarring/atelectasis of the left lung base. Superimposed left basilar pneumonia cannot be excluded. He was found to have a pro B-type natriuretic peptide of 18,427 she also was found to have an elevated troponin of 0.193. CT scan with angiogram of the chest showed small pulmonary emboli within the right lower lobe pulmonary arteries. Bibasilar pneumonia. The possibility of superimposed aspiration is difficult to exclude. Prominent mediastinal lymph nodes are likely reactive. A followup CT of the chest is recommended in approximately 3 months to reevaluate these nodes. Cardiomegaly. 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 Probable inferior thyroid nodules. Dedicated thyroid ultrasound would be helpful for better characterization a nonemergent basis. Dr. Waldo Blancas was called by Willard Melendez PA-C and he reviewed the chart and the patient's EKG. He did not find the EKG concerning. He felt that the patient should be admitted to the hospital service for treatment of pulmonary embolism. Family was concerned that patient would be put on a heparin drip they wanted Dr. Calero' s approval. Therefore, Willard Melendez discussed the case with patient's turbine engine assembler Dr. Calero at [facility] in [place]. He agreed with the plan to heparinize patient had an admit her for the pulmonary embolism. He requested that the patient have bilateral ultrasounds of the lower extremities and asked that the patient follow-up with him. Patient was then admitted to the hospitalist service for further evaluation and treatment. # Chest pain or shortness of breath, present on admission. Improved - Patient has known coronary artery disease and just had 5 stents placed in July 2016. Therefore, with positive troponins patient certainly could be having a non-ST elevated myocardial infarction. Dr. Waldo Blancas was consulted from the emergency room and reviewed the case and the EKG and felt that the patient should be admitted to the hospital service for treatment of her pulmonary embolism. I contacted the turbine engine assembler allergist/pediatric pulmonologist for today who did not feel was necessary for cardiology to follow the patient at this time. He suggested I call the patient's primary turbine engine assembler Dr. Calero. - Pulmonary embolism as described above on CT scan could certainly be a cause for the patient's chest pressure. However, patient states that the chest pressure is similar to the chest pressure she experienced back in July when she required 5 stents.. - I have discussed the case with Dr. Calero today and he recommends transitioning the patient to Lovenox bridging therapy with Coumadin started orally. And he recommends discharging the patient home to follow-up with him in his office on Thursday. # Non-ST elevated myocardial infarction with positive troponins, present on admission. - We will consult cardiology. Dr. Waldo Blancas hazard even contacted. - We will trend troponins. - We will continue with heparin drip. Until 9 PM this evening when we will start patient on Lovenox. - We will continue patient's home Plavix, aspirin and atorvastatin # Small pulmonary emboli within the right lower lobe pulmonary arteries. - Suspect patient may have a hypercoagulable state due to her history of lymphoma and has recently been more sedentary at the rehabilitation center. - Continue heparin drip - Start Coumadin per pharmacy dosing. - Consider subcutaneous fullness Lovenox as bridging therapy. # Insulin-dependent diabetes mellitus - Continue his home insulin regimen - Sliding-scale insulin coverage after Accu-Cheks before meals and at bedtime. # Bilateral lower lobe pneumonia - Patient has been being treated with levofloxacin with some symptomatic improvement decrease sputum and production etc. - For now will continue Levofloxacin. - As the nasal swab for MRSA screen was negative will discontinue vancomycin. - We will also discontinue cefepime. - I have consulted Dr. Davis of infectious disease and appreciate his input and have discussed case with him. # Polymyositis - We will consult physical and occupational therapies once patient is more stable. # History of hypertension - Continue home medications - We will monitor closely # History of valvular disease in need of repair - Based on physical exam findings and what history I could obtain from the patient and her sister and her niece sounds like patient has severe aortic stenosis. - As patient may be developing symptoms related to severe aortic stenosis the next treatment option would be TAVR. Disposition: Patient will likely be discharged this weekend on oral antibiotics and Coumadin with Lovenox bridging therapies that she can follow-up with her turbine engine assembler Dr. Calero on 10/06/2016. Pain Evaluation: Adequate Pain Control GI Prophylaxis: Proton Pump Inhibitor VTE Prophylaxis: Other (therapeutic anticoagulation with a heparin drip) Resuscitation Status: CPR: Attempt Resuscitation Kj Roth MD Oct 03, 2016 23:42
[2016-10-04] VITALS (9 sets, daily range): BP systolic 122–167; BP diastolic 65–78; PULSE 74–87; RESP 20–26; O2SAT 92–100
[2016-10-04] MEDS: Sodium Chloride LOK Flush 10 mL Syringe IVFLUSH SCH ×3 (00:30→16:42)
[2016-10-04 06:07] LABS: BASOPHILS % (AUTO) 1.6 % (0-3); EOSINOPHILS % (AUTO) 6.3 % (0-5); Mean Corpuscular Hemoglobin 27.9 pg (27.0-35.0); NEUTROPHILS % (AUTO) 57.3 % (40-74); Platelet Count 287 bil/L (150-400)
[2016-10-04 06:17] LABS: INR 1.37 ratio
--- NOTE | 2016-10-04 07:16 | NUR ---
activity patient up to bsc x2. requires 2 person assist to get to the bsc telephone plant power operator called. patient has had 2-3 short rounds of psvt. non sustained. 5 beats of vtach. asymptomatic. anxious about appointment on thursday in [place]. reassured. given emotional support.
[2016-10-04] MEDS: Ascorbic Acid 500 mg Tablet PO SCH (07:58)
[2016-10-04] MEDS: Lactobacillus Rhamnosus 10 Bil Unit Capsule PO SCH (07:59)
[2016-10-04] MEDS: Pantoprazole 40 mg ER24 Tablet PO SCH (07:59)
[2016-10-04] MEDS: Potassium Chloride 20 mEq SR Tablet PO SCH (07:59)
[2016-10-04] MEDS: Multivit-Miner-Folic Acid-Iron Tablet PO SCH (07:59)
[2016-10-04] MEDS: Insulin LISPRO Low-Dose Scale SUBQ SCH ×4 (08:00→21:36)
[2016-10-04] MEDS: levoFLOXacin Inj 750 MG in IV Premix 1 EACH IV SCH (08:01)
--- NOTE | 2016-10-04 08:01 | NUR ---
Respiratory Pt assessed found sitting up in bed breathing RA. Sat 98%, Hr 63, RR 22. Pt has congested, non-productive cough, states not SOB and is aware Tx is available.
[2016-10-04] MEDS: Insulin GLARgine 100 Unit/mL Syringe SUBQ SCH (08:09)
--- NOTE | 2016-10-04 10:00 | NUR ---
PATSY signed JAN Fraser
--- NOTE | 2016-10-04 15:18 | NUR ---
Evaluation completed. Please go to "Notes" then click on "Assessments and Notes" (bottom left corner of screen). Then select appropriate discipline tab on top of screen.
--- NOTE | 2016-10-04 15:52 | NUR ---
Social Work: Readiness for d/c Data: Pt is on day 2 of hospitalization. EMR reviewed. MD requested CONTINUOUS VULCANIZING MACHINE OPERATOR run Lovenox prescription against pt's insurance to see what it will cost her. Pt states her preferred pharmacy is [facility] in [place]. They state the prescription will be $101.80 cost to the pt. CONTINUOUS VULCANIZING MACHINE OPERATOR informed MD. Pt discussed in rounds. MD states pt likely to d/c tomorrow. CONTINUOUS VULCANIZING MACHINE OPERATOR will continue to follow. Assessment: Pt who is independent at baseline, from SNF. Plan: Pt will d/c to [facility] when medically stable. MD states pt likely to d/c tomorrow. CONTINUOUS VULCANIZING MACHINE OPERATOR will continue to follow. JAN Fraser
[2016-10-04] MEDS ORDERED: Vancomycin Serum Trough XX ONE ×2 (17:30)
--- NOTE | 2016-10-04 17:32 | NUR ---
Anxiety/tests Pt anxious throughout the day, lots of reassurance provided. Ex: asked for prune juice then sat on [facility] for 30min hoping not to have an accident. Prune juice not effective yet. Lots of family/shinto support throughout the day. Echo complete. ST seen pt. PT assessment done as well.
--- NOTE | 2016-10-04 18:56 | DRSVH ---
[facility] [address] [place] [address] Echocardiogram Report Name: BERTHA NGUYEN Date: Height: 65 in Hospital Exam Location: [facility] Weight: 160 lb Gender: Female BSA: 1.8 m2 : 1945 Age: 71 yrs BP: 167/73 mmHg Reason For Study: Congestive Heart Failure, Pulmonary Emboli History: CAD, Ordering Physician: HOSPITALIST [facility] Performed By: Sylvia Saunders Referring Physician: Dr. Bonifacio Santacruz Interpretation Summary Overall left ventricular systolic function is preserved with the ejection fraction visually estimated to be 55-60% and appears slightly more vigorous compared to the previous study although there continues to be mild hypokinesis in the proximal and mid posterolateral wall which appears unchanged compared to the previous echo. Left ventricular wall thickness is moderately increased and the E/A wave ratio > 2.0 could be indicative of reduced atrial contractility or increased preload, possibly slightly higher compared to the previous study. The right ventricle is normal in size and function and appears unchanged compared to the previous study. The right ventricular systolic pressure is estimated at least 38 mmHg assuming a right atrial pressure of 8 mm Hg. Comparison with the previous study is not possible because this was unable to be assessed on the previous study, although CVP appears to be slightly lower on today's study. The left atrium is severely dilated and has mildly increased in size since the prior echo exam. There is moderate mitral regurgitation that is unchanged compared to the previous study. The aortic valve is moderately calcified with moderate to severely reduced leaflet mobility, with probable severe aortic stenosis, perhaps slightly progressive compared to the previous study with the peak aortic velocity now 4.0 m/sec compared to 2.9 m/sec on the previous exam, and the aortic valve mean gradient is 37 mmHg compared to 20 mmHg. While the calculated aortic valve area is 0.56 cm2, visually the stenosis does not appear to be this severe. There is mild to moderate aortic regurgitation that is unchanged compared to the previous study. The previous left pleural effusion is not seen on today's study. Procedure: A two-dimensional transthoracic echocardiogram with color flow and Doppler was performed. The study quality was technically adequate. Comparison is made with the echocardiogram of 07/29/2016. The patient was in normal sinus rhythm during the exam. Left Ventricle: The left ventricle is normal in size. Left ventricular wall thickness is moderately increased. The LVOT diameter is 2.0 cm. The LVOT velocity is 0.69 m/s. Overall left ventricular systolic function is preserved. The ejection fraction is estimated to be 55-60%. This is slightly more vigorous compared to the previous study. There continues to be mild hypokinesis in the proximal and mid posterolateral wall which appears unchanged compared to the previous echo. The E/A wave ratio > 2.0 could be indicative of increased preload or reduced atrial contractility. Clinical correlation is necessary. This is perhaps slightly higher compared to the previous study. Right Ventricle: The right ventricle is normal in size and function. This is unchanged compared to the previous study. Atria: The left atrium is severely dilated. The left atrium has mildly increased in size since the prior echo exam. Right atrial size is normal. There is no Doppler evidence for an interatrial shunt. Mitral Valve: There is mild to moderate mitral annular calcification. The mitral valve leaflets are mildly calcified. No significant mitral valve stenosis. The mitral valve mean gradient is 3.5 mmHg. There is moderate mitral regurgitation. This is unchanged compared to the previous study. Aortic Valve: The aortic valve is trileaflet. The aortic valve is moderately calcified. Leaflet mobility is moderate to severely reduced. There is severe aortic stenosis. This is perhaps slightly progressive compared to the previous study. The peak aortic velocity is 4.0 m/sec. The peak aortic velocity on the previous exam was 2.9 m/sec. The aortic valve mean gradient is 37 mmHg. The calculated aortic valve area is 0.56 cm2. Although visually does not appear to be this severe. There is mild to moderate aortic regurgitation. This is unchanged compared to the previous study. Tricuspid Valve: The tricuspid valve leaflets are thin and pliable. There is trace tricuspid regurgitation. The right ventricular systolic pressure is estimated at least 38 mmHg assuming a right atrial pressure of 8 mm Hg. Comparison with the previous study is not possible because this was unable to be assessed on the previous study. although CVP appears to be slightly lower. Pulmonic Valve: The pulmonic valve is not well seen, but is grossly normal. There is trace pulmonic regurgitation. Great Vessels: The aortic root is normal size. The ascending aorta is normal in size. The aortic arch could not be visualized. The IVC is of normal diameter and collapses less than 50% with a sniff. This suggests a right atrial pressure of 8 mm Hg. Pericardium/ Pleura There is no pericardial effusion. The previous left pleural effusion is not seen on today's study. MMode/2D Measurements & Calculations LVIDd: 4.9 cm RA long axis LVOT diam LVIDs: 3.2 cm LA A2 area: 29.9 cm FS: 33.6 % LA A4 area: 25.8 cm RA area AoV Opening EPSS: 1.0 cm LA length (vol): 5.7 cm IVSd: 1.5 cm LA vol: 114.5 ml : 12.7 cm Ao root diam LVPWd: 1.3 cm LA vol index RA vol : 31.0 ml Aortic Jxn RA IVC diam: 1.9 cm : 17.2 mm2 asc Aorta Diam: 3.2 cm LV simmons. diameter/BSA LV sys. diameter/BSA RVD1 (basal) RVD2 (mid) (cm/m^2): 2.7 (cm/m^2): 1.8 : 2.2 cm TAPSE: 1.7 cm Doppler Measurements & Calculations Ao V2 max MV E max dennis MV E/A: 2.2 TR max dennis : 397.7 cm/sec : 164.7 cm/sec Med Peak E' Dennis : 273.0 cm/sec Ao max PG MV A max dennis TR max P.8 mmHg : 63.3 mmHg : 73.3 cm/sec E/E' med: 38.7 PA V2 max Ao mean PG MV P1/2t Pulm A Revs Dur : 85.8 cm/sec : 36.9 mmHg : 54.6 msec PA mean P.6 mmHg LVOT Max Dennis MV A dur: 0.10 sec PA Accel Time : 68.8 cm/sec MVA(VTI): 1.6 cm : 0.11 sec ARACELI(I,D) MR ERO: 0.14 cm2 : 0.56 cm sev ratio AI P1/2t : 317.1 msec AI dec slope : 387.4 cm/s2c MV V2 mean MV P1/2t max dennis Ao V2 mean LV V1 max PG : 84.3 cm/sec : 289.7 cm/sec MV mean PG MVA(P1/2t) Ao V2 VTI: 88.2 cm LV V1 VTI: 15.6 cm : 4.0 cm2 ARACELI(V,D): 0.55 cm2 MV V2 VTI MV dec time : 0.19 sec MR flow rate PA V2 mean ARACELI indexed to BSA Pulm A Revs Dur - MV : 86.0 cm3/sec : 60.3 cm/sec (cm^2/m^2): 0.31 A Dur: -0.00 msec MR PISA radius Reading Physician:06:54 PM
--- NOTE | 2016-10-04 22:12 | PCM.PNMED ---
Subjective Date of Service Oct 04, 2016 Subjective Patient is continuing to feel little bit better each day. She no longer has chest pain and is overall feeling better. She does not have any blood in her stool. She does not know other new complaints. Exam Vital Signs Vital Sign - Last Date Time Temp Pulse Resp B/P Pulse Ox O2 Delivery O2 Flow Rate FiO2 10/04/16 21:35 36.8 77 20 153/72 96 Room Air 10/04/16 06:22 3.00 Intake and Output 10/03/16 10/03/16 10/04/16 Cumulative From/Thru 15:00 23:00 07:00 10/02/16 11:06 - 10/04/16 06:35 Intake Total 1074 ml 200 ml 1777 ml Output Total 920 ml 350 ml 1270 ml Balance 154 ml -150 ml 507 ml Intake Oral 500 ml 200 ml 900 ml IV Total 574 ml 877 ml Output Urine Total 920 ml 350 ml 1270 ml # Voids 2 5 # Bowel Movements 2 0 2 Exam General: Patient is sitting in a bedside chair. She is in no apparent distress. HEENT: Head is atraumatic and normocephalic. Eyes: Pupils are equally round and reactive to light and accommodation. Extraocular muscles are intact. Sclera are white, anicteric. Subconjunctival mucosa is pink. Ears and nose are unremarkable. Oropharynx: There is no mucosal lesions, there is no thrush, there is no pharyngitis. Neck: Is supple, there are no nodes, or masses or tenderness. Chest: Is significant for bibasilar rales left greater than right, along with some rhonchi. However the lung sounds are considerably clearer today than they were over the last 48 hours. There is a well-healed scar in the left upper chest were no old port was in place for her chemotherapy. Heart: Rate, rhythm is regular. There is a 3/6 loud systolic ejection murmur heard best at the left sternal border radiating to the base. Abdomen: Good bowel sounds are present. Abdomen is soft, nontender, no organomegaly or masses were appreciated. Extremities: Are symmetrical and well perfused. There is minimal edema, there is no cellulitis, no rash. Neurologic: There are no focal neurological deficits. Cranial nerves II through XII are intact. There are no sensory or motor deficits. Patient has proximal muscle weakness Psychiatric: Patients mood is calm and she shows no sign of agitation. Genital: Deferred Rectal: Deferred Lab and Diagnostics Result Diagram: 10/04/16 0510/04/16534 Microbiology Respiratory viral PCR panel is negative. Strep pneumonia urinary antigen is negative. An MRSA screen is negative. X-Rays, CTs and MRIs PROCEDURE: CT ANGIO CHEST PULMONARY EMBOLISM ([id number]) INDICATIONS: chest pain, elevated ddimer 1.2 TECHNIQUE: After the administration of intravenous contrast, 2 mm thick sections acquired from the pulmonary apices to the posterior costophrenic angles. 3-dimensional maximum intensity projection (MIP) coronal and sagittal reformats were then acquired through the thorax. For radiation dose reduction, the following was used: automated exposure control, adjustment of mA and/or kV according to patient size. COMPARISON: None. FINDINGS: Image quality: Excellent. Pulmonary arteries: Main pulmonary arterial trunk is not enlarged. However, there is slight prominence of the right and left pulmonary arteries. Filling defects are seen within the distal aspect of the right main pulmonary arterial trunk. There are small intraluminal filling defects noted within the right lower lobe and possibly involving the left lower lobe within the pulmonary arteries in these regions. No large pulmonary embolus is evident. Lungs and pleura: Extensive bronchial wall thickening is noted within the bilateral lower lobes. There is tree in the nodularity noted within the lower lobes (record and left) with areas of groundglass attenuation and moderate consolidation. Additional areas of groundglass attenuation throughout the remainder of the lungs is identified, which may be related to expiratory technique. There is no large effusion or pneumothorax. No lung masses appreciated. Evaluation for pulmonary nodules is limited on this examination. Debris is noted within the right lower lobe bronchi. Mediastinum: Heart size is normal, with a small pericardial effusion. Thoracic aorta is normal in caliber and enhancement. Esophagus is normal in caliber, without hiatal hernia. No mediastinal mass is evident. However, there is extensive mediastinal and hilar lymph nodes (right hilar greater than left). The largest mediastinal lymph node measures at least 1.5 cm in short axis and is located within the aortopulmonary window. Confluent prominent lymph nodes within the subcarinal region and right infrahilar region are noted. Bones and chest wall: No suspicious bony lesions. Ribs and thoracic spine appear intact throughout. Thyroid gland is mildly heterogeneous with probable bilateral inferior thyroid nodules. No axillary or supraclavicular adenopathy. Abdomen: The included portions of the upper abdomen demonstrates the spleen to be slightly prominent in size. Cholecystectomy changes of the liver are noted. Non-masslike enlargement of the bilateral adrenal glands is present. There are small upper mediastinal lymph nodes with the largest located within the region of the lesser sac, measuring up to 10 mm in short axis (image 126, series 6). Approximately 50% narrowing involving the superior mesenteric artery is present related to atherosclerotic changes. IMPRESSION: 1. Small pulmonary emboli within the right lower lobe pulmonary arteries. 2. Bibasilar pneumonia. The possibility of superimposed aspiration is difficult to exclude. 3. Prominent mediastinal lymph nodes are likely reactive. A followup CT of the chest is recommended in approximately 3 months to reevaluate these nodes. 4. Cardiomegaly. 5. 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 6. Probable inferior thyroid nodules. Dedicated thyroid ultrasound would be helpful for better characterization a nonemergent basis. Note: Impressions 1-3 were discussed with Hakeem Balbuena at 1427 hours ([facility] ) on 10/02/2016. Dictated by: Ibrahima Case M.D. on 10/02/2016 at 14:18 Approved by: Ibrahima Case M.D. on 10/02/2016 at 14:31 PROCEDURE: X-RAY CHEST ONE VIEW, PORTABLE ([id number]) INDICATIONS: SHORTNESS OF BREATH TECHNIQUE: One view of the chest was acquired. COMPARISON: [facility], CR, XR CHEST 1VW (PORTABLE), 07/29/2016, 10: 41. FINDINGS: Surgical changes and devices: None. Lungs and pleura: Elevation of the right diaphragm is similar to the previous exam. Otherwise, the aeration of the lungs has improved in the interim. No definite consolidation, effusion, or pneumothorax is evident. There may be mild left basilar atelectasis. Mediastinum: Mediastinal contours appear normal. Heart size is normal. There is aortic atherosclerosis. Bones and chest wall: No suspicious bony lesions. Overlying soft tissues appear unremarkable. IMPRESSION: Improved aeration of the lungs with residual right diaphragmatic elevation and probable scarring/atelectasis at the left lung base. Superimposed left basilar pneumonia cannot be excluded. Dictated by: Ibrahima Case M.D. on 10/02/2016 at 10:34 Approved by: Ibrahima Case M.D. on 10/02/2016 at 10:35 Cardiac Echo Impressions Pending Assessment & Plan The patient is a pleasant 71-year-old white female Zoroastrianism with history of presenting to [facility] in July with diagnosis of atrial fibrillation, congestive heart failure, anasarca and myocardial infarction. Patient for 2 days had fluid removed and due to her children as witness leaves patient was transferred to [facility] on August 08 and was cared for by Dr. Calero who plays 5 coronary stents. Patient was told that she also needed to have a TAVR however she was too malnourished to undergo the procedure after just having 5 stents placed. Patient was then sent to [facility] in [place]. Patient has resided there since. 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 Patient has a follow- up appointment with Dr. Calero on Thursday. Approximate 4 days prior to this admission she developed cough for the per DrRonnell patient of green sputum. Patient went to [facility] and was diagnosed with pneumonia and was placed on levofloxacin. She states she has been taking the levofloxacin for at least 2 days. Today she reported that she had heaviness in her chest which was progressively worse she is noted to have a low oxygen saturation at the [facility] and the staff there called 911. The patient was brought to [facility] emergency room for evaluation and treatment. Patient was evaluated by Willard Melendez PA-C and Dr. Hakeem Balbuena. Patient had a chest x- ray which showed improved aeration lungs with residual right diaphragmatic elevation and probable scarring/atelectasis of the left lung base. Superimposed left basilar pneumonia cannot be excluded. He was found to have a pro B-type natriuretic peptide of 18,427 she also was found to have an elevated troponin of 0.193. CT scan with angiogram of the chest showed small pulmonary emboli within the right lower lobe pulmonary arteries. Bibasilar pneumonia. The possibility of superimposed aspiration is difficult to exclude. Prominent mediastinal lymph nodes are likely reactive. A followup CT of the chest is recommended in approximately 3 months to reevaluate these nodes. Cardiomegaly. 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 Probable inferior thyroid nodules. Dedicated thyroid ultrasound would be helpful for better characterization a nonemergent basis. Dr. Waldo Blancas was called by Willard Melendez PA-C and he reviewed the chart and the patient's EKG. He did not find the EKG concerning. He felt that the patient should be admitted to the hospital service for treatment of pulmonary embolism. Family was concerned that patient would be put on a heparin drip they wanted Dr. Calero' s approval. Therefore, Willard Melendez discussed the case with patient's operations business partner Dr. Calero at [facility] in [place]. He agreed with the plan to heparinize patient had an admit her for the pulmonary embolism. He requested that the patient have bilateral ultrasounds of the lower extremities and asked that the patient follow-up with him. Patient was then admitted to the hospitalist service for further evaluation and treatment. # Chest pain or shortness of breath, present on admission. Improved - Patient has known coronary artery disease and just had 5 stents placed in July 2016. Therefore, with positive troponins patient certainly could be having a non-ST elevated myocardial infarction. Dr. Waldo Blancas was consulted from the emergency room and reviewed the case and the EKG and felt that the patient should be admitted to the hospital service for treatment of her pulmonary embolism. I contacted the operations business partner cone picker for today who did not feel was necessary for cardiology to follow the patient at this time. He suggested I call the patient's primary operations business partner Dr. Calero. - Pulmonary embolism as described above on CT scan could certainly be a cause for the patient's chest pressure. However, patient states that the chest pressure is similar to the chest pressure she experienced back in July when she required 5 stents.. - I have discussed the case with Dr. Calero and he recommends transitioning the patient to Lovenox bridging therapy with Coumadin started orally. And he recommends discharging the patient home to follow-up with him in his office on Thursday. # Non-ST elevated myocardial infarction with positive troponins, present on admission. - We will consult cardiology. Dr. Waldo Blancas has reviewed the case. Dr. Carlton Mckeon recommended contacting Dr. Calero. - We have trended troponins. - We have changed the IV heparin drip to Lovenox. - We will continue patient's home Plavix, aspirin and atorvastatin # Small pulmonary emboli within the right lower lobe pulmonary arteries. - Suspect patient may have a hypercoagulable state due to her history of lymphoma and has recently been more sedentary at the rehabilitation center. - Continue heparin drip - Start Coumadin per pharmacy dosing. - Consider subcutaneous fullness Lovenox as bridging therapy. # Insulin-dependent diabetes mellitus - Continue his home insulin regimen - Sliding-scale insulin coverage after Accu-Cheks before meals and at bedtime. # Bilateral lower lobe pneumonia - Patient has been being treated with levofloxacin with some symptomatic improvement decrease sputum and production etc. - For now will continue Levofloxacin. - As the nasal swab for MRSA screen was negative will discontinue vancomycin. - We will also discontinue cefepime. - I have consulted Dr. Davis of infectious disease and appreciate his input and have discussed case with him. # Polymyositis - We will consult physical and occupational therapies once patient is more stable. # History of hypertension - Continue home medications - We will monitor closely # History of valvular disease in need of repair - Based on physical exam findings and what history I could obtain from the patient and her sister and her niece sounds like patient has severe aortic stenosis. - As patient may be developing symptoms related to severe aortic stenosis the next treatment option would be TAVR. Disposition: Patient will likely be discharged tomorrow on oral antibiotics and Coumadin with Lovenox bridging therapies that she can follow-up with her operations business partner Dr. Calero on 10/06/2016. Pain Evaluation: Adequate Pain Control GI Prophylaxis: Proton Pump Inhibitor VTE Prophylaxis: Sub-Q Enoxaparin (patient is receiving therapeutic doses) Resuscitation Status: CPR: Attempt Resuscitation Kj Roth MD Oct 04, 2016 22:12
[2016-10-05] MEDS: Sodium Chloride LOK Flush 10 mL Syringe IVFLUSH SCH ×2 (00:12→09:26)
[2016-10-05 02:46] VITALS: BP 145/69; PULSE 80; RESP 20; O2SAT 97
[2016-10-05 05:03] VITALS: BP 158/83; PULSE 90; RESP 20; O2SAT 97
--- NOTE | 2016-10-05 06:11 | NUR ---
NOC PT was very anxious upon first meeting her. PT is overwhelmed by all of the new cardiac issues she has been having since July. She is concerned over her appt on Thursday with her boiler coverer at [facility]. We talked about the potential plan to return back to SNF today and then go to her appt from there. She just kept putting her head in her hands and shaking her head. She had difficulty articulation her rapid thoughts. Vistaril was given at HS with some relief. PT able to sleep only a few hours. PT is in NSR on tele. NO afib. PT took all meds crushed in pudding without difficulty. PT had medium BM last ileana. VOiding per [facility]. PT is a 2 person assist. She is very weak and deconditioned. Skin intact. ON lovenox and warfarin bridge. Lungs are tight t/o with crackles noted at bases. She remains ORA. WIll CTM for anxiety and continue to offer support and relaxation techniques.
[2016-10-05 06:30] VITALS: PULSE 90
[2016-10-05 06:37] LABS: MONOCYTES % (AUTO) 9.8 % (4-12); Mean Corpuscular Hemoglobin 28.1 pg (27.0-35.0); Mean Corpuscular Volume 88.2 fL (81-100); NEUTROPHILS % (AUTO) 67.5 % (40-74); Platelet Count 300 bil/L (150-400)
[2016-10-05 07:20] LABS: INR 1.86 ratio
--- NOTE | 2016-10-05 08:36 | NUR ---
Respiratory Pt found sitting up in bed eating breakfast. After introduction Pt stated she was ok and that it was all the other systems besides her lungs that were the problem. Pt did not want any Tx and said she was ok when RT asked to eval. Pt aware Tx is available.
[2016-10-05] MEDS: levoFLOXacin Inj 750 MG in IV Premix 1 EACH IV SCH (09:21)
[2016-10-05] MEDS: Potassium Chloride 20 mEq SR Tablet PO SCH (09:25)
[2016-10-05] MEDS: Multivit-Miner-Folic Acid-Iron Tablet PO SCH (09:25)
[2016-10-05] MEDS: Pantoprazole 40 mg ER24 Tablet PO SCH (09:25)
[2016-10-05] MEDS: Ascorbic Acid 500 mg Tablet PO SCH (09:25)
[2016-10-05 09:26] VITALS: BP 165/67; PULSE 80; RESP 20; O2SAT 93
[2016-10-05] MEDS: Insulin LISPRO Low-Dose Scale SUBQ SCH ×2 (09:30→12:01)
[2016-10-05] MEDS: Lactobacillus Rhamnosus 10 Bil Unit Capsule PO SCH (09:32)
[2016-10-05] MEDS: Insulin GLARgine 100 Unit/mL Syringe SUBQ SCH (09:32)
[2016-10-05 10:47] VITALS: PULSE 82
--- NOTE | 2016-10-05 12:38 | PCM.DIMED ---
Discharge Instructions Date of Service Oct 05, 2016 Dates of Hospitalization Oct 02, 2016 at 19:56 Discharge Diagnosis Discharge Diagnosis Pulmonary Emboli with Critical Aortic Valve Stenosis Diet Heart Healthy, Diabetic Activity Other (As per Dr. Calero) Patient Instructions Follow-up Provider: Bonifacio Santacruz MD Follow-up with PCP in: 1 week Follow-up in: 1 week (Follow Up with Appliance Servicer Dr. Rhett Calero tomorrow on ) Kj Roth MD Oct 05, 2016 12:38
[2016-10-05] MEDS ORDERED: METR500T PO (12:45)
[2016-10-05] MEDS ORDERED: SENN-133 PO (12:45)
[2016-10-05] MEDS ORDERED: LEVO500T79 PO (12:45)
[2016-10-05] MEDS ORDERED: LOV80 SUBQ (12:45)
[2016-10-05] MEDS ORDERED: WARF2.5T82 PO (12:45)
[2016-10-05] MEDS ORDERED: PANT40TA3 PO (12:45)
[2016-10-05 12:56] VITALS: BP 125/66; PULSE 76; RESP 20; O2SAT 96
--- NOTE | 2016-10-05 14:25 | NUR ---
Social Work Note: Discharge Data& Assessment: Per pt is medically ready for discharge. Colleen Calixto is a 71 year old female admitted on 10/02/2016 for pulmonary embolism and pneumonia. Per pt is medically improved and ready to discharge back to [facility] for continued rehab. SW confirmed with [facility] that they are able to accept pt back today and the Lovanox is not a barrier to pt returning to their facility. Transportation arranged by [facility] via wheelchair van for 3p.m. SW met with pt and pt family at bedside to confirm discharge plan and assess for any unmet needs. Pt will be following up with her Accelerator Technician at [facility] tomorrow, pt confirmed that her family will be transporting her. Pt denies any other needs. Clinicals faxed to facility. No other discharge needs identified. All updated and agreeable to plan. Plan: Per pt is medically ready to discharge back to [facility] via wheelchair van arranged by facility at 3:00p.m.. RN, MD, pt, pt family and facility all updated and agreeable to plan. Pt denies any other needs. No other discharge needs identified. JAN De La Torre
--- NOTE | 2016-10-05 15:03 | NUR ---
Discharge Pt d/c to [facility] at 1455 on wc by staff from receiving facility. Pt denied pain. All personal belongings left with pt. IV d/c. VSS. Report called to receiving CARITO Maddox at 1420. Randy Merino was here to accompany pt with the transition.
--- NOTE | 2016-10-06 00:39 | PCM.DC.MED ---
Discharge Summary Date of Service Oct 05, 2016 Dates of Hospitalization Date of Hospital Admission Oct 02, 2016 at 19:56 Date of Discharge: Oct 05, 2016 Providers: Admitting Physician: Kj Roth MD Primary Care Physician: oBnifacio Santacruz MD Attending Physician: Kj Roth MD Diagnosis at Time of Discharge Diagnosis at Time of Discharge Pulmonary Emboli with Critical Aortic Valve Stenosis Procedures XRay, CTs & MRIs PROCEDURE: CT ANGIO CHEST PULMONARY EMBOLISM ([id number]) INDICATIONS: chest pain, elevated ddimer 1.2 TECHNIQUE: After the administration of intravenous contrast, 2 mm thick sections acquired from the pulmonary apices to the posterior costophrenic angles. 3-dimensional maximum intensity projection (MIP) coronal and sagittal reformats were then acquired through the thorax. For radiation dose reduction, the following was used: automated exposure control, adjustment of mA and/or kV according to patient size. COMPARISON: None. FINDINGS: Image quality: Excellent. Pulmonary arteries: Main pulmonary arterial trunk is not enlarged. However, there is slight prominence of the right and left pulmonary arteries. Filling defects are seen within the distal aspect of the right main pulmonary arterial trunk. There are small intraluminal filling defects noted within the right lower lobe and possibly involving the left lower lobe within the pulmonary arteries in these regions. No large pulmonary embolus is evident. Lungs and pleura: Extensive bronchial wall thickening is noted within the bilateral lower lobes. There is tree in the nodularity noted within the lower lobes (record and left) with areas of groundglass attenuation and moderate consolidation. Additional areas of groundglass attenuation throughout the remainder of the lungs is identified, which may be related to expiratory technique. There is no large effusion or pneumothorax. No lung masses appreciated. Evaluation for pulmonary nodules is limited on this examination. Debris is noted within the right lower lobe bronchi. Mediastinum: Heart size is normal, with a small pericardial effusion. Thoracic aorta is normal in caliber and enhancement. Esophagus is normal in caliber, without hiatal hernia. No mediastinal mass is evident. However, there is extensive mediastinal and hilar lymph nodes (right hilar greater than left). The largest mediastinal lymph node measures at least 1.5 cm in short axis and is located within the aortopulmonary window. Confluent prominent lymph nodes within the subcarinal region and right infrahilar region are noted. Bones and chest wall: No suspicious bony lesions. Ribs and thoracic spine appear intact throughout. Thyroid gland is mildly heterogeneous with probable bilateral inferior thyroid nodules. No axillary or supraclavicular adenopathy. Abdomen: The included portions of the upper abdomen demonstrates the spleen to be slightly prominent in size. Cholecystectomy changes of the liver are noted. Non-masslike enlargement of the bilateral adrenal glands is present. There are small upper mediastinal lymph nodes with the largest located within the region of the lesser sac, measuring up to 10 mm in short axis (image 126, series 6). Approximately 50% narrowing involving the superior mesenteric artery is present related to atherosclerotic changes. IMPRESSION: 1. Small pulmonary emboli within the right lower lobe pulmonary arteries. 2. Bibasilar pneumonia. The possibility of superimposed aspiration is difficult to exclude. 3. Prominent mediastinal lymph nodes are likely reactive. A followup CT of the chest is recommended in approximately 3 months to reevaluate these nodes. 4. Cardiomegaly. 5. 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 6. Probable inferior thyroid nodules. Dedicated thyroid ultrasound would be helpful for better characterization a nonemergent basis. Note: Impressions 1-3 were discussed with Hakeem Balbuena at 1427 hours ([facility] ) on 10/02/2016. Dictated by: Ibrahima Case M.D. on 10/02/2016 at 14:18 Approved by: Ibrahima Case M.D. on 10/02/2016 at 14:31 PROCEDURE: X-RAY CHEST ONE VIEW, PORTABLE ([id number]) INDICATIONS: SHORTNESS OF BREATH TECHNIQUE: One view of the chest was acquired. COMPARISON: [facility], , XR CHEST 1VW (PORTABLE), 07/29/2016, 10: 41. FINDINGS: Surgical changes and devices: None. Lungs and pleura: Elevation of the right diaphragm is similar to the previous exam. Otherwise, the aeration of the lungs has improved in the interim. No definite consolidation, effusion, or pneumothorax is evident. There may be mild left basilar atelectasis. Mediastinum: Mediastinal contours appear normal. Heart size is normal. There is aortic atherosclerosis. Bones and chest wall: No suspicious bony lesions. Overlying soft tissues appear unremarkable. IMPRESSION: Improved aeration of the lungs with residual right diaphragmatic elevation and probable scarring/atelectasis at the left lung base. Superimposed left basilar pneumonia cannot be excluded. Dictated by: Ibrahima Case M.D. on 10/02/2016 at 10:34 Approved by: Ibrahima Case M.D. on 10/02/2016 at 10:35 Cardiac Echo Impression Pending Brief History The patient is a pleasant 71-year-old white female Yazidism with history of presenting to [facility] in July with diagnosis of atrial fibrillation, congestive heart failure, anasarca and myocardial infarction. Patient for 2 days had fluid removed and due to her children as witness leaves patient was transferred to [facility] on August 08 and was cared for by Dr. Calero who plays 5 coronary stents. Patient was told that she also needed to have a TAVR however she was too malnourished to undergo the procedure after just having 5 stents placed. Patient was then sent to [facility] in [place]. Patient has resided there since. 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 Patient has a follow- up appointment with Dr. Calero on Thursday. Approximate 4 days prior to this admission she developed cough for the per Dr. larson of green sputum. Patient went to [facility] and was diagnosed with pneumonia and was placed on levofloxacin. She states she has been taking the levofloxacin for at least 2 days. Today she reported that she had heaviness in her chest which was progressively worse she is noted to have a low oxygen saturation at the [facility] and the staff there called 911. The patient was brought to [facility] emergency room for evaluation and treatment. Patient was evaluated by Willard Melendez PA-C and Dr. Hakeem Balbuena. Patient had a chest x- ray which showed improved aeration lungs with residual right diaphragmatic elevation and probable scarring/atelectasis of the left lung base. Superimposed left basilar pneumonia cannot be excluded. He was found to have a pro B-type natriuretic peptide of 18,427 she also was found to have an elevated troponin of 0.193. CT scan with angiogram of the chest showed small pulmonary emboli within the right lower lobe pulmonary arteries. Bibasilar pneumonia. The possibility of superimposed aspiration is difficult to exclude. Prominent mediastinal lymph nodes are likely reactive. A followup CT of the chest is recommended in approximately 3 months to reevaluate these nodes. Cardiomegaly. 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 Probable inferior thyroid nodules. Dedicated thyroid ultrasound would be helpful for better characterization a nonemergent basis. Dr. Waldo Blacnas was called by Willard Melendez PA-C and he reviewed the chart and the patient's EKG. He did not find the EKG concerning. He felt that the patient should be admitted to the hospital service for treatment of pulmonary embolism. Family was concerned that patient would be put on a heparin drip they wanted Dr. Calero' s approval. Therefore, Willard Melendez discussed the case with patient's trouble shooter Dr. Calero at [facility] in [place]. He agreed with the plan to heparinize patient had an admit her for the pulmonary embolism. He requested that the patient have bilateral ultrasounds of the lower extremities and asked that the patient follow-up with him. Patient was then admitted to the hospitalist service for further evaluation and treatment. Hospital Course The patient is a pleasant 71-year-old white female Yazidism with history of presenting to [facility] in July with diagnosis of atrial fibrillation, congestive heart failure, anasarca and myocardial infarction. Patient for 2 days had fluid removed and due to her children as witness leaves patient was transferred to [facility] on August 08 and was cared for by Dr. Calero who plays 5 coronary stents. Patient was told that she also needed to have a TAVR however she was too malnourished to undergo the procedure after just having 5 stents placed. Patient was then sent to [facility] in [place]. Patient has resided there since. 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 Patient has a follow- up appointment with Dr. Calero on Thursday. Approximate 4 days prior to this admission she developed cough for the per Dr. larson of green sputum. Patient went to [facility] and was diagnosed with pneumonia and was placed on levofloxacin. She states she has been taking the levofloxacin for at least 2 days. Today she reported that she had heaviness in her chest which was progressively worse she is noted to have a low oxygen saturation at the [facility] and the staff there called 911. The patient was brought to [facility] emergency room for evaluation and treatment. Patient was evaluated by Willard Melendez PA-C and Dr. Hakeem Balbuena. Patient had a chest x- ray which showed improved aeration lungs with residual right diaphragmatic elevation and probable scarring/atelectasis of the left lung base. Superimposed left basilar pneumonia cannot be excluded. He was found to have a pro B-type natriuretic peptide of 18,427 she also was found to have an elevated troponin of 0.193. CT scan with angiogram of the chest showed small pulmonary emboli within the right lower lobe pulmonary arteries. Bibasilar pneumonia. The possibility of superimposed aspiration is difficult to exclude. Prominent mediastinal lymph nodes are likely reactive. A followup CT of the chest is recommended in approximately 3 months to reevaluate these nodes. Cardiomegaly. 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 Probable inferior thyroid nodules. Dedicated thyroid ultrasound would be helpful for better characterization a nonemergent basis. Dr. Waldo Blancas was called by Willard Melendez PA-C and he reviewed the chart and the patient's EKG. He did not find the EKG concerning. He felt that the patient should be admitted to the hospital service for treatment of pulmonary embolism. Family was concerned that patient would be put on a heparin drip they wanted Dr. Calero' s approval. Therefore, Willard Melendez discussed the case with patient's trouble shooter Dr. Calero at [facility] in [place]. He agreed with the plan to heparinize patient had an admit her for the pulmonary embolism. He requested that the patient have bilateral ultrasounds of the lower extremities and asked that the patient follow-up with him. Patient was then admitted to the hospitalist service for further evaluation and treatment. # Chest pain or shortness of breath, present on admission. Improved - Patient has known coronary artery disease and just had 5 stents placed in July 2016. Therefore, with positive troponins patient certainly could be having a non-ST elevated myocardial infarction. Dr. Waldo Blancas was consulted from the emergency room and reviewed the case and the EKG and felt that the patient should be admitted to the hospital service for treatment of her pulmonary embolism. I contacted the trouble shooter air conditioning engineer for today who did not feel was necessary for cardiology to follow the patient at this time. He suggested I call the patient's primary trouble shooter Dr. Calero. - Pulmonary embolism as described above on CT scan could certainly be a cause for the patient's chest pressure. However, patient states that the chest pressure is similar to the chest pressure she experienced back in July when she required 5 stents.. - I have discussed the case with Dr. Calero and he recommends transitioning the patient to Lovenox bridging therapy with Coumadin started orally. And he recommends discharging the patient home to follow-up with him in his office on Thursday. # Non-ST elevated myocardial infarction with positive troponins, present on admission. - We will consult cardiology. Dr. Waldo Blancas has reviewed the case. Dr. Carlton Mckeon recommended contacting Dr. Calero. - We have trended troponins. - We have changed the IV heparin drip to Lovenox. - We will continue patient's home Plavix, aspirin and atorvastatin # Small pulmonary emboli within the right lower lobe pulmonary arteries. - Suspect patient may have a hypercoagulable state due to her history of lymphoma and has recently been more sedentary at the rehabilitation center. - Continue heparin drip - Start Coumadin per pharmacy dosing. - Consider subcutaneous fullness Lovenox as bridging therapy. # Insulin-dependent diabetes mellitus - Continue his home insulin regimen - Sliding-scale insulin coverage after Accu-Cheks before meals and at bedtime. # Bilateral lower lobe pneumonia - Patient has been being treated with levofloxacin with some symptomatic improvement decrease sputum and production etc. - For now will continue Levofloxacin. I have added oral Flagyl for anaerobic coverage in the event that patient may have aspiration pneumonia we will continue both in oral form at home. - As the nasal swab for MRSA screen was negative will discontinue vancomycin. - We will also discontinue cefepime. - I have consulted Dr. Davis of infectious disease and appreciate his input and have discussed case with him. # Polymyositis - We will consult physical and occupational therapies once patient is more stable. # History of hypertension - Continue home medications - We will monitor closely # History of valvular disease in need of repair - Based on physical exam findings and what history I could obtain from the patient and her sister and her niece sounds like patient has severe aortic stenosis. - As patient may be developing symptoms related to severe aortic stenosis the next treatment option would be TAVR. Disposition: Patient will be discharged today on oral antibiotics and Coumadin with Lovenox bridging therapies that she can follow-up with her trouble shooter Dr. Calero on 10/06/2016. Exam Vital Signs (Last) Date Time Temp Pulse Resp B/P Pulse Ox O2 Delivery O2 Flow Rate FiO2 10/05/16 12:56 36.7 76 20 125/66 96 Room Air 10/05/16 05:03 2.00 Exam General: Patient is sitting in a bedside chair. She is in no apparent distress. HEENT: Head is atraumatic and normocephalic. Eyes: Pupils are equally round and reactive to light and accommodation. Extraocular muscles are intact. Sclera are white, anicteric. Subconjunctival mucosa is pink. Ears and nose are unremarkable. Oropharynx: There is no mucosal lesions, there is no thrush, there is no pharyngitis. Neck: Is supple, there are no nodes, or masses or tenderness. Chest: Is significant for bibasilar rales left greater than right, along with some rhonchi. However the lung sounds are considerably clearer today than they were over the last 48 hours. There is a well-healed scar in the left upper chest were no old port was in place for her chemotherapy. Heart: Rate, rhythm is regular. There is a 3/6 loud systolic ejection murmur heard best at the left sternal border radiating to the base. Abdomen: Good bowel sounds are present. Abdomen is soft, nontender, no organomegaly or masses were appreciated. Extremities: Are symmetrical and well perfused. There is minimal edema, there is no cellulitis, no rash. Neurologic: There are no focal neurological deficits. Cranial nerves II through XII are intact. There are no sensory or motor deficits. Patient has proximal muscle weakness Psychiatric: Patients mood is calm and she shows no sign of agitation. Genital: Deferred Rectal: Deferred Test 10/02/16 11:55 10/02/16 12:00 10/02/16 12:05 10/02/16 21:35 Urine Legionella pneumophilia Ag Negative (Negative) D-Dimer 1.27mg/L FEU (<0.50) Hold Mchugh Top Tube Received (Received) Urine Color Yellow (YELLOW) Urine Appearance Hazy (CLEAR,HAZY) Urine pH 7.0 (5.0-8.0) Urine Specific [place] 1.015 (1.003-1.035) Urine Protein 100mg/dL (NEG,TRACE) Urine Glucose (UA) Negativemg/dL (NEGATIVE) Urine Ketones Negativemg/dL (NEGATIVE) Urine Occult Blood Trace (NEGATIVE) Urine Nitrite Negative (NEGATIVE) Urine Bilirubin Negative (NEGATIVE) Urine Urobilinogen Normalmg/dL (NORMAL) Urine Leukocyte Esterase Negative (NEGATIVE) Urine RBC 0-2/hpf (0-2) Urine WBC 0-5/hpf (0-5) Urine Epithelial Cells Occasional/hpf (NONE-MOD) Urine Crystals None seen (NONE SEEN) Urine Bacteria None/hpf (NONE-FEW) Urine Hyaline Casts None/lpf (NONE) Urine Granular Casts None seen (NONE SEEN) Urine Waxy Casts None seen (NONE SEEN) Urine Red Blood Cell Casts None seen (NONE SEEN) Urine White Blood Cell Casts None seen (NONE SEEN) Urine Mucus None seen (None Seen) Urine Trichomonas None seen (NONE SEEN) Urine Yeast None (NONE SEEN) Urinalysis Comment None Urine Culture Reflexed Not indicated Hemoglobin A1c 6.9% (4.8-5.6) Thyroid Stimulating Hormone (TSH) 2.530uIU/mL (0.450-4.500) Test 10/03/16 06:20 10/03/16 10:06 10/03/16 11:45 10/03/16 16:05 Erythrocyte Sedimentation Rate 60mm/hr (0-40) Magnesium Level 2.1mg/dL (1.6-2.6) C-Reactive Protein 3.0mg/dL (0.0-0.5) Pro-B-Type Natriuretic Peptide 59871tg/mL (0-301) Procalcitonin 0.08ng/mL (0.00-0.08) Troponin T 0.163ug/L (0.0-0.011) Hold Urine Received (Received) Activated Partial Thromboplast Time 49.7sec (22.8-33.0) Test 10/05/16 05:55 White Blood Count 6.1th/mm3 (3.8-10.1) Red Blood Count 3.63mil/mm3 (3.90-5.20) Hemoglobin 10.2g/dL (12.0-15.6) Hematocrit 32.0% (35.0-46.0) Mean Corpuscular Volume 88.2fL (81-100) Mean Corpuscular Hemoglobin 28.1pg (27.0-35.0) Mean Corpuscular Hemoglobin Concent 31.9% (32.0-37.0) Red Cell Distribution Width 15.8% (12.3-15.4) Platelet Count 300bil/L (150-400) Neutrophils (%) (Auto) 67.5% (40-74) Lymphocytes (%) (Auto) 17.4% (14-46) Monocytes (%) (Auto) 9.8% (4-12) Eosinophils (%) (Auto) 4.0% (0-5) Basophils (%) (Auto) 1.0% (0-3) Prothrombin Time 20.2sec (8.1-12.5) Prothromb Time International Ratio 1.86ratio Sodium Level 138mEq/L (134-144) Potassium Level 4.3mEq/L (3.5-5.2) Chloride Level 94mEq/L (97-108) Carbon Dioxide Level 26mmol/L (18-29) Blood Urea Nitrogen 22mg/dL (8-27) Creatinine 0.83mg/dL (0.57-1.00) Estimat Glomerular Filtration Rate 97mL/min (>59) Glucose Level 143mg/dL (60-99) Calcium Level 9.4mg/dL (8.5-10.1) Total Bilirubin 0.4mg/dL (0.0-1.2) Aspartate Amino Transf (AST/SGOT) 14U/L (0-50) Alanine Aminotransferase (ALT/SGPT) 8U/L (0-32) Alkaline Phosphatase 105U/L (25-165) Total Protein 6.3g/dL (6.4-8.4) Albumin 3.2g/dL (3.4-5.0) Microbiology Results Respiratory viral PCR panel is negative. Strep pneumonia urinary antigen is negative. An MRSA screen is negative. Discharge Medications Discharge Medications Ascorbic Acid (Vitamin C) 250 Mg Tab.chew 250 MG PO QAM (Reported) Aspirin Chew (Aspirin Chew) 81 Mg Chew 81 MG PO QAM (Reported) Atorvastatin (Lipitor) 20 Mg Tablet 20 MG PO HS (Reported) Clopidogrel (Clopidogrel) 75 Mg Tablet 75 MG PO QAM (Reported) Enoxaparin (Lovenox) 80 Mg/0.8 Ml Syringe 70 MG SUBQ Q12H Prescribed by: DAVIDA ROTH MD Ferrous Sulfate (Ferrous Sulfate) 325 Mg Tablet 325 MG PO QAM (Reported) Folic Acid (Folic Acid) 1 Mg Tablet 1 MG PO QAM (Reported) Furosemide (Furosemide) 20 Mg Tab 60 MG PO QAM (Reported) Insulin Glargine (Lantus U100 Insulin Vial) 100 Unit/Ml Vial 15 UNIT SUBQ QAM ( Reported) Insulin Human Lispro (HumaLOG U100 Insulin Vial) 100 Unit/Ml Unit 4 UNIT SUBQ TIDWM (Reported) Check blood sugars before meals and at bedtime. Use correction factor only before meals. Blood Sugar Lispro Correction: <151, 0 units; 151-175, 1 unit; 176-200, 2 units; 201-225, 3 units; 226-250, 4 units; 251-275, 5 units; 276-300 , 6 units; 301-325, 7 units; 326-350, 8 units; 351-375, 9 units; 376-400, 10 units; >400, 12 units. L. Rhamnosus GG/Inulin (Culturelle Capsule) 10 Billion Cell-200 Mg Cap.sprink 1 EACH PO DAILY (Reported) X 14 DAYS Levofloxacin (Levofloxacin) 500 Mg Tablet 500 MG PO DAILY X 7 DAYS Prescribed by: DAVIDA ROTH MD Levothyroxine (Levothyroxine) 88 Mcg Tablet 88 MCG PO QAM (Reported) Metoprolol Tartrate (Metoprolol Tartrate) 25 Mg Tablet 25 MG PO BID (Reported) Metronidazole (Flagyl) 500 Mg Tablet 500 MG PO BID Prescribed by: DAVIDA ROTH MD Multivit with Calcium,Iron,Min (Therapeutic M) 1 Each Tablet 1 EACH PO QAM ( Reported) Pantoprazole DR (Pantoprazole DR) 40 Mg Tablet.dr 40 MG PO DAILYAC Prescribed by: DAVIDA ROTH MD Potassium Chloride ER (Potassium Chloride ER) 20 Meq Tablet.er 20 MEQ PO DAILYWM (Reported) TAKE WITH FOOD Warfarin Sodium (Warfarin Sodium) 2.5 Mg Tablet 2.5 MG PO QPM Prescribed by: DAVIDA ROTH MD As needed Acetaminophen (Acetaminophen) 325 Mg Tablet 650 MG PO Q6H PRN PRN For Fever ( Reported) Bisacodyl (Dulcolax Rectal) 10 Mg Supp.rect 10 MG RC DAILY PRN PRN For Constipation (Reported) NO BOWEL MOVEMENT 8 HRS POST MOM Calcium Carbonate (Tums) 500 Mg Tab.chew 500 MG PO Q8H PRN PRN For Dyspepsia or Heartburn (Reported) Docusate Sodium (Colace) 100 Mg Capsule 100 MG PO DAILY PRN PRN For Constipation (Reported) Hydroxyzine Pamoate (HydrOXYzine Pamoate) 25 Mg Capsule 25 MG PO HS PRN PRN For Insomnia (Reported) Ipratropium/Albuterol Sulfate (Iprat-Albut 0.5-3(2.5) mg/3 mL Inhalant Soln) 3 Ml Ampul.neb 3 ML IH Q6 PRN PRN For Shortness of Breath (Reported) Magnesium Hydroxide (Milk of Magnesia) 400 Mg/5 Ml Oral.susp 30 ML PO DAILY PRN PRN For Constipation (Reported) 1ST LINE FOR NO BOWEL MOVEMENT IN 72 HRS Melatonin (Melatonin) 5 Mg Tablet 5 MG PO HS PRN PRN Insomnia (Reported) Na Phos,M-B/Na Phos,Di-Ba (Fleet Enema) 133 Ml Enema 133 ML RC DAILY PRN PRN For Constipation (Reported) NO BOWEL MOVEMENT 8 HRS POST DULCOLAX SUPP Nitroglycerin SL (Nitroglycerin SL) 0.4 Mg Tab.subl 0.4 MG SL Q5MIN PRN PRN For Chest Pain (Reported) Ondansetron (Ondansetron) 4 Mg Tablet 4 MG PO Q6H PRN PRN For Nausea/Vomiting ( Reported) Polyethylene Glycol 3350 (Polyethylene Glycol 3350) 17 Gm Powd.pack 17 GM PO DAILY PRN PRN For Constipation (Reported) Sennosides (Senna) 8.6 Mg Tablet 17.2 MG PO BID PRN PRN For Constipation Prescribed by: DAVIDA ROTH MD diphenhydrAMINE HCl (Unisom Sleepmelts) 25 Mg Tab.rapdis 25 MG PO Q6H PRN PRN For Itching (Reported) Followup Plan Disposition: Patient is being discharged to [facility] longterm facility. Discharge Diet: Heart Healthy, Diabetic Discharge Activity: Other (As per Dr. Calero) Follow-up Provider: Bonifacio Santacruz MD Follow-up with PCP in: 1 week Follow-up in: 1 week (Follow Up with Core Inserter Dr. Rhett Calero tomorrow on ) Time spent Time spent on discharging this patient was greater than 35 minutes, over half of which was involved in counseling and coordination of care. Kj Roth MD Oct 06, 2016 00:39
--- NOTE | 2016-10-06 00:43 | PCM.ADCARE ---
Advance Care Planning Note Purpose of Encounter: To establish Goals of care Parties in Attendance: The patient and her niece "Angelique" Decisional Capacity: Patient is able to make her own decisions. Subjective: Patient wishes to see Dr. Calero tomorrow at [facility] as an outpatient. She is looking forward to having an aortic valve replacement when feasible. Objective: I explained to the patient and the patient's niece that the patient has multiple comorbidities including diabetes mellitus which is insulin-dependent, pulmonary emboli, coronary artery disease status post 5 stent being placed earlier this year etc. Goals of Care Determinations: Patient continues to wish to be a full code including CPR and intubation if necessary. At this discussion with her throughout the hospitalization. She wishes to pursue aortic valve replacement with Dr. Calero when possible. She is going to see him tomorrow in his office. Plan: Patient is to continue to pursue all medical treatments available for her multiple medical problems. CODE STATUS: Patient remains a full code. Time Spent Adv.Care Planning: Approximately 25 minutes was taken in advanced care planning today. Adv. Care Plan Documenation: See above. Kj Roth MD Oct 06, 2016 00:43
== END 2016-10-05 15:00 | DRG 175 ==
LOC: SED 10:55 → EDBD 10:55 → UNDOADMIN 17:04 → MPC 17:04
PROVIDERS: ADMIT Internal Medicine Infectious Disease; ATTEND Internal Medicine Infectious Disease
DX: I26.99 Other pulmonary embolism without acute cor pulmonale (principal); I21.4 Non-ST elevation (NSTEMI) myocardial infarction; J18.9 Pneumonia, unspecified organism; M33.20 Polymyositis, organ involvement unspecified; Z95.5 Presence of coronary angioplasty implant and graft; Z79.82 Long term (current) use of aspirin; Z79.4 Long term (current) use of insulin; Z79.01 Long term (current) use of anticoagulants; E11.9 Type 2 diabetes mellitus without complications; I10 Essential (primary) hypertension; Z51.5 Encounter for palliative care; I35.0 Nonrheumatic aortic (valve) stenosis